=== PATIENT | male | born 1950 | race Caucasian/White ===

== ENCOUNTER → 2018-01-04 08:13 | Outpatient (CLI) | payer MEDICARE, SELFPAY ==
[2018-01-04 12:42] LABS: ALB/GLOB Ratio 1.1 RATIO (0.9-2.4); AST(SGOT) 24 U/L (15-37); Alanine Aminotransfer ALT/SGPT 39 U/L (16-61); Albumin, Serum 3.5 g/dL (3.2-5.0); Alkaline Phosphatase 66 U/L (45-117); Anion Gap 7 (5-15); BUN 10 mg/dL (7-18); BUN/Creat Ratio 11.1 RATIO (10-20); Calcium,Total 8.5 mg/dL (8.5-10.1); Chloride 105 mmol/L (98-107); Cholesterol 164 mg/dL (200); EST Glomerular Filtration Rate 90 mL/min (>60); Est Glom Filt Rate - Afr Amer 109 mL/min (>60); Globulin 3.3 g/dL (2.2-4.2); Glucose 160 mg/dL (74-106); High Density Lipoprotein 33 mg/dL; Potassium 3.9 mmol/L (3.5-5.1); Protein, Total 6.8 g/dL (6.4-8.2); Sodium Level 140 mmol/L (136-145); Triglycerides 274 mg/dL; Very Low Density Lipoprotein 55 mg/dL (5-40)
[2018-01-04 12:54] LABS: Hemoglobin A1c 7.3 % (4.2-6.3)
[2018-01-04 13:08] LABS: Microalbumin,Random Urine 6.2 mg/L (NO RANGE EST.); Microalbumin:Creatinine Ratio 3.8 mg/g CRE (<30 mg/g CRE)
== END ==
PROVIDERS: Visit Provider Family Medicine
DX: E11.9 Type 2 diabetes mellitus without complications (principal); E78.1 Pure hyperglyceridemia; R03.0 Elevated blood-pressure reading, without diagnosis of hypertension
CPT/HCPCS: 36415; 80053; 80061; 82043; 82570; 83036

== ENCOUNTER → 2018-07-05 08:12 | Outpatient (CLI) | payer MEDICARE, SELFPAY ==
[2018-07-05 12:43] LABS: Hemoglobin A1c 5.9 % (4.2-6.3)
[2018-07-05 12:45] LABS: Cholesterol 185 mg/dL (200); High Density Lipoprotein 54 mg/dL; PSA,Total - Annual Screen 3.58 ng/mL (0.00-4.00); Triglycerides 75 mg/dL; Very Low Density Lipoprotein 15 mg/dL (5-40)
== END ==
PROVIDERS: Family Provider Family Medicine; PCP Family Medicine; Visit Provider Family Medicine
DX: E11.9 Type 2 diabetes mellitus without complications (principal); E78.1 Pure hyperglyceridemia; Z12.5 Encounter for screening for malignant neoplasm of prostate
CPT/HCPCS: 36415; 80061; 83036; 84153; G0103

== ENCOUNTER → 2022-04-17 | Outpatient (CLI) | payer MEDICARE, SELFPAY ==
[2022-04-17 12:21] LABS: Absolute Lymphocyte Count 1.52 X10^3/uL (0.83-4.51); Absolute Neutrophil Count 2.7 X10^3/uL (2.0-7.7); Basophil# 0.05 X10^3/uL; Basophil% 1.1 % (0-1); Eosinophil# 0.11 X10^3/uL; Eosinophils% 2.4 % (0-5); Hematocrit 47.3 % (40-54); Hemoglobin 15.6 g/dL (13.0-16.5); Lymphocyte # 1.52 X10^3/ul (0.83-4.51); Lymphocyte % 32.5 % (19-41); Mean Corpuscular Hgb 30.2 pg (27.0-32.0); Mean Corpuscular Volume 91.5 fL (80-94); Mean Platelet Vol. 11.9 fl (6.2-12.0); Monocyte# 0.26 X10^3/uL; Monocyte% 5.6 % (0-10); NRBC Flagged by Analyzer 0 % (0-5); Neutrophil # 2.73 X10^3/uL (2.7-7.7); Neutrophil % 58.2 % (47-70); Platelet Count 191 K/mm3 (150-450); RBC Distribution Width CV 13.7 % (11.6-14.6); RBC Distribution Width SD 46.5 fl (35.1-43.9); Red Blood Count 5.17 M/mm3 (4.6-6.2); White Blood Count 4.7 K/mm3 (4.4-11.0)
[2022-04-17 12:33] LABS: ALB/GLOB Ratio 1.1 RATIO (0.9-2.4); AST(SGOT) 25 U/L (15-37); Alanine Aminotransfer ALT/SGPT 32 U/L (16-61); Albumin, Serum 3.7 g/dL (3.2-5.0); Alkaline Phosphatase 57 U/L (45-117); Anion Gap 9 (5-15); BUN 11 mg/dL (7-18); BUN/Creat Ratio 12.3 RATIO (10-20); Calcium,Total 8.3 mg/dL (8.5-10.1); Chloride 107 mmol/L (98-107); Cholesterol 202 mg/dL (200); EST Glomerular Filtration Rate 89 mL/min (>60); Est Glom Filt Rate - Afr Amer 108 mL/min (>60); Globulin 3.4 g/dL (2.2-4.2); Glucose 142 mg/dL (74-106); High Density Lipoprotein 49 mg/dL; Potassium 3.9 mmol/L (3.5-5.1); Protein, Total 7.1 g/dL (6.4-8.2); Sodium Level 142 mmol/L (136-145); Triglycerides 116 mg/dL; Very Low Density Lipoprotein 23 mg/dL (5-40)
[2022-04-17 12:50] LABS: Microalbumin,Random Urine 13.4 mg/L (NO RANGE EST.); Microalbumin:Creatinine Ratio 10.3 mg/g CRE (<30 mg/g CRE)
[2022-04-17 14:03] LABS: Hemoglobin A1c 6.8 % (3.8-5.6)
== END | disposition home or self-care (01) ==
PROVIDERS: PCP Family Medicine; Visit Provider Family Medicine
DX: E11.9 Type 2 diabetes mellitus without complications (principal); E78.1 Pure hyperglyceridemia; Z12.5 Encounter for screening for malignant neoplasm of prostate
CPT/HCPCS: 36415; 80053; 80061; 82043; 82570; 83036; 84153; 85025; G0103

== ENCOUNTER → 2022-05-20 | Outpatient (CLI) | payer MEDICARE, SELFPAY | END | disposition home or self-care (01) | LOC: LAB 14:46 | PROVIDERS: PCP Family Medicine; Visit Provider Urology | DX: R97.20 Elevated prostate specific antigen [PSA] (principal) | CPT/HCPCS: 36415; 84153 ==

== ENCOUNTER → 2022-06-05 | Outpatient (CLI) | payer MEDICARE, SELFPAY ==
--- NOTE | 2022-06-05 | IMM_PTH ---
PATIENT: JERALD NAM LOC: [facility] U#:[id number] AGE/SX: 72/M ROOM: RE06/05/[address]: Dr. Ruben Parks MD : 1950 BED: DIS: 06/05/2022 SPEC #: [id number] RECD: 06/09/22 13:17 STATUS: MESSI REQ #: [id number] ENRIQUE: 06/05/22 00:[address]: Ruben Parks DEPT: IMMUNOHISTOCHEMISTRY RECD BY: Jimena France ENTERED: 06/09/22 13:18 SP TYPE: IMMUNO OTHR DR: Dr. Asael Garcia DO Tissues: C - PROSTATE RIGHT Procedures: P40 (add) 34BE12 (initial) PHYSICIAN & INSTITUTION [place] [id number] SPECIMEN INFORMATION: Tissue Source: C - Right prostate, base, core biopsy Clinical Info: Elevated PSA Specimen Number: [id number] CPT code: 26504, 73894 METHODOLOGY: Deparaffinized sections of prefer/formalin-fixed tissue or PAP/DQ stained slides are incubated with monoclonal/polyclonal antibodies/oligonucleotide probes. Localization is made via biotin free immunoperoxidase method. Appropriate controls are performed and reacted as expected. Results on target cell population are indicated in the following table: RESULTS: ANTIBODY / CLONE RESULT Block C P40 (BC28) negative 34BE12 (34BE12) negative These tests were developed and their performance characteristics determined by [facility]. They may not have been cleared or approved by the U.S. Food and Drug Administration. The FDA has determined that such clearance or approval is not necessary. The above immunohistochemical/dualISH markers are ordered and reviewed by the Pathologist. INTERPRETATION: C. Right prostate, base, core biopsy: Adenocarcinoma. SJ:leticia 06/10/2022
--- NOTE | 2022-06-05 11:15 | PROSBIL_PTH ---
PATIENT: JERALD NAM LOC: [facility] U#:[id number] AGE/SX: 72/M ROOM: RE06/05/[address]: Dr. Ruben Parks MD : 1950 BED: DIS: 06/05/2022 SPEC #: [id number] RECD: 06/05/22 17:13 STATUS: MESSI DUMONT #: [id number] ENRIQUE: 06/05/22 11:[address]: Ruben Parks DEPT: SURGICAL PATHOLOGY RECD BY: Nohemi Bishop ENTERED: 06/06/22 07:56 SP TYPE: PROST BX DOLORES DR: Dr. Asael Garcia DO Tissues: A - PROSTATE RIGHT B - PROSTATE RIGHT C - PROSTATE RIGHT D - PROSTATE LEFT E - PROSTATE LEFT F - PROSTATE LEFT Procedures: PROSTATE BX HEADER OPERATION: Prostate biopsy PRE-OP DIAGNOSIS: Elevated PSA R97.20 TISSUE SUBMITTED: A - Right apex, B - Right mid, C - Right base, D - Left apex, E - Left mid, F - Left base MICROSCOPIC DIAGNOSIS A. Right prostate, apex, core biopsy: Prostatic adenocarcinoma. [place] grade: 3+4=7 Number of cores involved: 1/1 Proportion of tissue involved: >95% Perineural invasion: Present. Greatest tumor length: 0.9 cm B. Right prostate, mid, core biopsy: Prostatic adenocarcinoma. [place] grade: 3+4=7 Number of cores involved: 1/1 Proportion of tissue involved: ~90% Perineural invasion: Present. Greatest tumor length: 1.5 cm Focal high-grade prostatic intraepithelial neoplasia (HGPIN). Focal chronic inflammation. C. Right prostate, base, core biopsy: A minute focus of prostatic adenocarcinoma. [place] grade: 3+4=7 Number of cores involved: 1/1 Proportion of tissue involved: ~5% Perineural invasion: Present. Greatest tumor length: 0.2 cm Focal high-grade prostatic intraepithelial neoplasia (HGPIN). See comment. D. Left prostate, apex, core biopsy: Prostatic adenocarcinoma. [place] grade: 3+4=7 Number of cores involved: 1/1 Proportion of tissue involved: ~80% Perineural invasion: Present. Greatest tumor length: 1.0 cm Chronic inflammation. E. Left prostate, mid, core biopsy: Prostatic adenocarcinoma. [place] grade: 3+4=7 Number of cores involved: 1/1 Proportion of tissue involved: >95% Perineural invasion: Present. Greatest tumor length: 1.0 cm Chronic inflammation. F. Left prostate, base, core biopsy: Prostatic adenocarcinoma. [place] grade: 3+4=7 Number of cores involved: 1/1 Proportion of tissue involved: >95% Perineural invasion: present. Greatest tumor length: 1.2 cm Focal high-grade prostatic intraepithelial neoplasia (HGPIN). Focal chronic inflammation. SJ:leticia 06/09/2022 COMMENT C. Immunohistochemistry ([id number]) supports the above diagnosis. Case has been reviewed in consultation with Dr. Crawley who concurs with the above diagnosis. IDC:AM MICROSCOPIC DESCRIPTION Slides are reviewed. GROSS DESCRIPTION A - Received is one container designated prostate, right apex. The specimen consists of one elongated fragment of light chung-white soft tissue measuring 1.0 cm in length and 0.1 cm in diameter. The specimen is totally submitted in one cassette. B - Received is one container designated prostate, right mid. The specimen consists of one elongated fragment of light chung-white soft tissue measuring 2.0 cm in length and 0.1 cm in diameter. The specimen is totally submitted in one cassette. C - Received is one container designated prostate, right base. The specimen consists of one elongated fragment of light chung-white soft tissue measuring 1.1 cm in length and 0.1 cm in diameter. The specimen is totally submitted in one cassette. D - Received is one container designated prostate, left apex. The specimen consists of one elongated fragment of light chung-white soft tissue measuring 1.1 cm in length and 0.1 cm in diameter. The specimen is totally submitted in one cassette. E - Received is one container designated prostate, left mid. The specimen consists of one elongated fragment of light chung-white soft tissue measuring 1.1 cm in length and 0.1 cm in diameter. The specimen is totally submitted in one cassette. F - Received is one container designated prostate, left base. The specimen consists of one elongated fragment of light chung-white soft tissue measuring 1.2 cm in length and 0.1 cm in diameter. The specimen is totally submitted in one cassette. / DEE:leticia 06/06/2022 TC:0 CPT: G0146
== END | disposition home or self-care (01) ==
PROVIDERS: PCP Family Medicine; Visit Provider Urology
DX: R97.20 Elevated prostate specific antigen [PSA] (principal)
CPT/HCPCS: 88305; 88341; 88342; G0416

== ENCOUNTER → 2022-06-13 | Outpatient (CLI) | payer MEDICARE, SELFPAY ==
--- NOTE | 2022-06-13 16:02 | MRI_ITS ---
ACR Level 3 findings have been noted. An addendum which confirms receipt of the report will follow. MR Pelvis Male WO/W Contrast 06/13/2022 4:10 PM COMPARISON: None CLINICAL HISTORY: 72 yo M with hx of positive biopsy for prostate adenocarcinoma TECHNIQUE: Standard prostate MR protocol was used before and after administration of 17 cc IV Clariscan. FINDINGS: Prostate volume: 27 cc PSA density: PSA level not provided Length of membranous urethra: 15 mm Post-biopsy hemorrhage: Minimal hemorrhage seen in the right base and left mid gland. Multiparametric MR evaluation: Heterogeneous appearance of the central gland is consistent with benign prostatic hyperplasia. Lesion 1: There is a 3.7 x 1 x 3 cm moderately T2 hypointense lesion in the right anterior and posterolateral peripheral zone and transitional zone from base to near apex. It is moderately bright on DWI and markedly dark on ADC map. T2 - 5 DWI - 5 DCE - Positive Overall PI-RADS v2 score = 5 Capsular margin and neurovascular bundle: There is at least 2 mm length of extension into the anterior fibromuscular stroma. Seminal vesicles: Likely involvement of the right seminal vesicle. Normal left seminal vesicle. Bladder: Directly abuts the bladder. Cannot rule out local invasion. Lymph nodes: Prominent mesorectal lymph nodes for example a 9 mm node on the left (image 17, series 7). Bones: Normal MRI/Pelvis W/WO Contrast IMPRESSION: 3.7 cm PI-RADS 5 lesion in the right anterior and posterolateral PZ and TZ from base to near apex. - At least 2 mm length of extension into the anterior fibromuscular stroma. - Directly abuts the bladder. Cannot rule out local invasion. - Invades the right seminal vesicle, not the left. - Prominent mesorectal lymph nodes - No suspicious bone lesions. Electronically Signed: Rajendra Denise MD at 21:45 EDT ,
[2022-06-13 16:21] LABS: EGFR FINGERSTICK > 60.0000 mL/min (>60)
== END | disposition home or self-care (01) ==
LOC: MRI 15:50
PROVIDERS: PCP Family Medicine; Referring Provider Urology; Visit Provider Urology
DX: R97.20 Elevated prostate specific antigen [PSA] (principal)
CPT/HCPCS: 72197; A9575

== ENCOUNTER → 2022-06-20 | Outpatient (CLI) | payer MEDICARE, SELFPAY ==
--- NOTE | 2022-06-20 09:26 | NM_ITS ---
CLINICAL: 72-year-old male with history of primary prostate carcinoma. WHOLE BODY 99m Tc MDP RADIONUCLIDE BONE SCINTIGRAPHY COMPARISON: None available FINDINGS: Following the intravenous administration of 5.1 mCi of 99m Tc MDP, whole body bone images reveal: 1. Increased radiopharmaceutical concentration is defined in the acromioclavicular and sternoclavicular compartments of both, the left wrist, the lateral tibial compartment of the left knee, the ankles bilaterally. 2. The remaining skeletal structures are scintigraphically unremarkable with normal-appearing renal images and urinary bladder activity identified. NM/Bone Scan Whole Body IMPRESSION: 1. The increase in radiopharmaceutical concentration defined in the bilateral shoulder articulations, the left wrist, the left knee and both ankles is commensurate with degenerative arthritis. 2. There is no definitive scintigraphic evidence of osseous metastatic disease on the current examination. Electronically Signed: Yunier Martinez, at 13:55 EDT ,
== END | disposition home or self-care (01) ==
LOC: NM 09:20
PROVIDERS: PCP Family Medicine; Referring Provider Urology; Visit Provider Urology
DX: R97.20 Elevated prostate specific antigen [PSA] (principal); C61 Malignant neoplasm of prostate
CPT/HCPCS: 78306; A9503

== ENCOUNTER → 2022-06-26 | Outpatient (CLI) | payer MEDICARE, SELFPAY ==
--- NOTE | 2022-06-26 14:40 | CT_ITS ---
INDICATION: PROSTATE CA EXAMINATION: CT Abdomen And Pelvis W/ Contrast Injection TECHNIQUE: Helically acquired images were obtained of the abdomen and pelvis following IV contrast. 2-D reconstructions reviewed. A radiation dose optimization technique was used for this scan. IV Contrast dosage and agent: 100 cc Isovue-300 Oral contrast: None. COMPARISON: None. FINDINGS: LOWER CHEST: Benign granulomatous calcifications and adjacent cluster of punctate noncalcified nodules within left lower lobe compatible with post infectious process. Heart size within normal limits. LIVER: Several low-attenuation lesions measuring up to 13 mm diameter. Favor benign cysts and/or hemangiomas. GALLBLADDER AND BILIARY TREE: No calcified gallstones identified. No gallbladder wall edema demonstrated. No significant biliary ductal dilation. PANCREAS: No discrete mass or peripancreatic edema. SPLEEN: Normal size without focal cystic or solid mass. ADRENAL GLANDS: Unremarkable. KIDNEYS AND URETERS: Normal renal size and position. There are few small calcified stones within right kidney measuring up to 3 mm diameter. No ureteral stones identified. No hydroureteronephrosis. PERITONEUM: No peritoneal free air detected. No significant free fluid. RETROPERITONEUM: No retroperitoneal mass or pathologic fluid collection. BOWEL: Normal appendix medial to cecum within right lower quadrant. No bowel obstruction or significant bowel thickening. No focal inflammatory change. LYMPH NODES: No enlarged mesenteric or retroperitoneal lymph nodes. VESSELS: Mild atherosclerosis with no abdominal aortic aneurysm. URINARY BLADDER: There are few calcified stones lying within bladder lumen, largest measuring 1.8 cm diameter. REPRODUCTIVE ORGANS: Slightly enlarged prostate gland with small dystrophic calcifications. ABDOMINAL WALL: No acute findings. BONES: Skeletal degenerative changes with no suspicious osseous lesion or acute fracture. CT/Abdomen/Pelvis W IV Cont ONLY IMPRESSION: 1. Low-attenuation liver lesions are likely benign cysts and/or hemangiomas. Less likely metastatic disease. Follow-up as clinically warranted. 2. Otherwise, no evidence of acute intra-abdominal abnormality. 3. Urolithiasis and nephrolithiasis with no obstructive uropathy. 4. Slightly enlarged prostate gland with dystrophic calcifications. 5. Benign post infectious changes within left lower lobe of lung. No additional follow-up recommended at this time. 6. Other nonurgent findings within body of report. Electronically Signed: Asael Escobar MD at 22:13 EDT ,
== END | disposition home or self-care (01) ==
LOC: CT 14:27
PROVIDERS: PCP Family Medicine; Referring Provider Urology; Visit Provider Urology
DX: R97.20 Elevated prostate specific antigen [PSA] (principal); C61 Malignant neoplasm of prostate
CPT/HCPCS: 74177; Q9967

== ENCOUNTER 2022-07-23 11:13 | Observation (INO) | payer MEDICARE, SELFPAY ==
--- NOTE | 2022-07-17 12:43 | EKG12_ITS ---
Test Reason : PRE OP Blood Pressure : / mmHG Vent. Rate : 065 BPM Atrial Rate : 065 BPM P-R Int : 176 ms QRS Dur : 088 ms QT Int : 428 ms P-R-T Axes : 058 -04 049 degrees QTc Int : 445 ms Normal sinus rhythm Normal ECG Confirmed by AVILA RIVERS, LESLIE ([id number]), web editor MAYRA GORDON ([id number]) on 07/18/2022 8:16:31 AM Referred By: Rubne Parks Confirmed By:LESLIE GRAMAJO MD
[2022-07-17 13:34] LABS: Hematocrit 45.1 % (40-54); Hemoglobin 14.7 g/dL (13.0-16.5); Mean Corp Hgb Conc 32.6 g/dL (32-36); Mean Corpuscular Hgb 29.7 pg (27.0-32.0); Mean Corpuscular Volume 91.1 fL (80-94); Mean Platelet Vol. 12.4 fl (6.2-12.0); Platelet Count 177 K/mm3 (150-450); RBC Distribution Width CV 14.1 % (11.6-14.6); RBC Distribution Width SD 47.1 fl (35.1-43.9); Red Blood Count 4.95 M/mm3 (4.6-6.2); White Blood Count 5.2 K/mm3 (4.4-11.0)
[2022-07-23] VITALS (7 sets, daily range): BP systolic 129–149; BP diastolic 70–79; PULSE 70–77; RESP 14–18; TEMP 36.5–36.8; O2SAT 94–99; BMI 24.5
[2022-07-23] MEDS: Lactated Ringers 1,000 ML 15 ML IV (10:41)
[2022-07-23] MEDS: Cefazolin 2 GM in 0.9% Normal Saline 100 ML IV (12:16)
--- NOTE | 2022-07-23 12:30 | PROST_PTH ---
PATIENT: JERALD NAM LOC: [facility] U#:[id number] AGE/SX: 72/M [place] [facility] [place]: Dr. Ruben Parks MD : 1950 BED: 1 DIS: 07/24/2022 SPEC #: [id number] RECD: 07/23/22 16:55 STATUS: MESSI DUMONT #: [id number] ENRIQUE: 07/23/22 12:[address]: Ruben Parks DEPT: SURGICAL PATHOLOGY RECD BY: Kadeem Ashton ENTERED: 07/24/22 07:46 SP TYPE: PROSTATE OTHR DR: MD Dr. Asael Velasquez, DO Tissues: A - CALCULI B - Lymph node of pelvis, NOS C - Lymph node of pelvis, NOS D - Prostate, NOS Procedures: Surgery Specimen Level I Surgery Specimen Level V Surgery Specimen Level HEADER OPERATION: Laparoscopic robotic radical prostatectomy, bilateral lymph nodes PRE-OP DIAGNOSIS: Prostatic adenocarcinoma TISSUE SUBMITTED: A ? Bladder stones, B ? Left pelvic lymph node, C ? Right pelvic lymph node, D - Prostate MICROSCOPIC DIAGNOSIS A. Bladder stone: Stones x2 (gross only), clinically bladder stone. B. Left pelvic lymph nodes, regional dissection: Six out of six lymph nodes negative for metastatic carcinoma. C. Right pelvic lymph nodes, regional dissection: Two out of two lymph nodes negative for metastatic carcinoma. D. Prostate, radical prostatectomy: Prostatic adenocarcinoma. See cancer summary in the comment section. SJ:leticia 07/29/2022 COMMENT PROSTATE CANCER (RADICAL) SUMMARY: Procedure: Radical Prostatectomy Prostate Size: Weight: 46.5 gm Size: 4.0 cm transversely, 3.5 cm anterior-posteriorly and 4.5 cm craniocaudally Histologic Type: Adenocarcinoma Histologic Grade: Grade group 5, [place] score 4+5=9 Tumor Quantitation: Estimated percentage of prostate involved by tumor: >95% Tumor involves extensively apical, middle, and basal portions of both right and left lobes. Extraprostatic Extension: Present, nonfocal Location of Extraprostatic Extension: Right and left posterior and lateral and measures 0.7 cm in greatest dimension. Urinary Bladder Neck Invasion: Not identified Seminal Vesicle Invasion: Present, bilateral and both right and left seminal vesicle tumor measures 0.9 cm in greatest dimension. Tumor is also present surrounding adipose tissue adjacent to the seminal vesicle. Lymphvascular Invasion: Not identified Perineural Invasion: Present, frequent Margins: Margins involved by invasive carcinoma, nonlimited (>3 mm) Linear Length of positive margin involved: 1.4 cm, apical (largest length of positive margin) Focality: Multifocal Location of positive margin: Apical, basal, right posterolateral Margin positive in extraprostatic extension: Not identified [place] pattern at positive margin: Pattern 4 Treatment effect: No known presurgical therapy. Regional Lymph Nodes: Number of lymph nodes involved by carcinoma: 0 Number of lymph nodes examined: 8 Additional Pathologic Findings: Chronic inflammation. Focal high-grade prostatic intraepithelial neoplasia (HGPIN). Multiple stones. Ancillary Studies: Not performed. Clinical History: Please make reference to previous specimen ([id number]) right prostate apex, mid and base and left prostate apex and mid, core biopsies with diagnosis of ?prostatic adenocarcinoma.? PATHOLOGIC STAGE: pT3a+b pN0 pMx The above summary is in compliance with [employer] [employer] (CAP) Cancer Protocols Checklist and [place] [employer] Committee on Cancer (AJCC), Staging Manual, 8th Ed. Case has been reviewed in consultation with Dr. Crawley who concurs with the above diagnosis. IDC:AM MICROSCOPIC DESCRIPTION Slides are reviewed. GROSS DESCRIPTION A - Received in fixative is one container labeled with the patient's name and designated bladder stones. The specimen consists of two ovoid, rough surface brownish-yellow stones measuring 1.5 and 2.5 cm in greatest dimension. The specimen is for gross identification only. B - Received in fixative is one container labeled with the patient's name and designated left pelvic lymph node. The specimen consists of multiple pieces of yellow adipose tissue that in aggregate measure 3.5 x 3.0 x 0.5 cm. One possible lymph node is identified. It is bisected. The entire specimen is submitted in two cassettes as follows: 1 - one bisected lymph node and additional tissue (The bisected lymph node is inked black), 2??rest of the specimen. C - Received in fixative is one container labeled with the patient's name and designated right pelvic lymph node. The specimen consists of two pieces of yellow adipose tissue that in aggregate measure 4.5 x 3.0 x 1.0 cm. One nodule consistent with lymph node is noted measuring 2.5 cm in greatest dimension. The entire specimen is submitted in three cassettes as follows: 1 - one bisected lymph node, 2 & 3 - rest of the specimen. D - Received in fixative is one container labeled with the patient's name and designated prostate. The specimen consists of a radical prostatectomy specimen consisting of prostate and bilateral seminal vesicles and vas deferens. The specimen weighs 46.5 gm. The prostate measures 4.0 cm transversely, 3.5 cm anterior-posteriorly and 4.5 cm craniocaudally. The right seminal vesicle measures 2.5 x 1.0 x 0.5 cm and right vas deferens measures 2.5 cm in length and 0.5 cm in diameter. The left seminal vesicle measures 1.5 x 1.0 x 0.5 cm and the left vas deferens measures 2.0 cm in length and 0.6 cm in diameter. The prostate is inked as follows: anterior surface - yellow, posterior surface - black, right lateral surface - blue, left lateral surface - green. The bilateral seminal vesicles and vas deferens are inked as follows: Posterior surface bilateral seminal vesicle and vas deferens - black, anterior surface right seminal vesicle and vas deferens - blue and anterior left seminal vesicle and vas deferens - green. Sections of the prostate do not reveal any obvious mass lesion. Several brown stones are noted measuring 0.1 to 0.2 cm in greatest dimension. Screener Operator sections are submitted in 20 cassettes as follows: 1 - right seminal vesicle and vas deferens, 2 - left seminal vesicle and vas deferens, 3 - apical (urethral) margin, enface, 4?& 5 - distal portion prostate and bladder neck margin, enface, 6-10 - apical portion prostate, 1114 - middle portion prostate, 15-20 - basal portion prostate. Sections are submitted after additional fixation. / DEE:leticia 07/24/2022 TC:0 CPT: 73222, 00002 x2, 52765
[2022-07-23] MEDS: Bupivacaine 0.25% 30 ML Vial (15:45)
--- NOTE | 2022-07-23 16:03 | PCM.HP.STD ---
HPI - General HPI Narrative JERALD NAM, is a 72 M who presents for radical prostatectomy he has high risk prostate cancer organ to proceed with a bilateral lymph node dissection radical prostatectomy and also removal bladder stones large. [facility] Medical History (Updated 07/23/22 @ 11:[address] Ruben Parks MD) Alcohol use Anemia Bladder disease Cancer Leg cramps Non-smoker Prostate disease Restless legs Tinnitus Home Medications Magnesium Bys Glycinate 1 pkg PO/SL DAILY 07/09/22 [History Last Taken Unknown] alpha lipoic acid 300 mg capsule 300 mg PO DAILY 07/09/22 [History Last Taken Unknown] cholecalciferol (vitamin D3) 125 mcg (5,000 unit) tablet (Vitamin D3) 125 mcg PO DAILY 07/09/22 [History Last Taken Unknown] vitamin K2 100 mcg capsule 100 mcg PO DAILY 07/09/22 [History Last Taken Unknown] zinc 50 mg tablet 15 mg PO DAILY 07/09/22 [History Last Taken Unknown] ciprofloxacin HCl 500 mg tablet (Cipro) 500 mg PO BID #14 tabs 07/23/22 [Rx Last Taken Unknown] docusate sodium 100 mg capsule (Colace) 100 mg PO BID #20 caps 07/23/22 [Rx Last Taken Unknown] oxycodone-acetaminophen 5 mg-325 mg tablet (Endocet) 1 tab PO Q6H PRN pain 7 days #14 tabs 07/23/22 [Rx Last Taken Unknown] Allergy/AdvReac Type Severity Reaction Status Date / Time ibuprofen [From Advil] AdvReac SWEATS AND Verified 07/23/22 10:36 HOT FLASH naproxen [From Aleve] AdvReac SWEATS AND Verified 07/23/22 10:36 HOT FLASH Surgical History (Updated 07/09/22 @ 10:11 by Madeleine Dumas) Hx of colonoscopy Hx of hernia repair Hx of prostate biopsy Hx of tonsillectomy Social History Smoking Status: Never smoker Vital Signs Vital Signs Vital Signs: 07/23/22 10:36 07/23/22 10:36 Temperature 97.7 F L Temperature Source Temporal Pulse Rate 70 Respiratory Rate 16 Respiratory Pattern Normal Blood Pressure 149/79 H Blood Pressure Mean 102 Blood Pressure Source Monitor Blood Pressure Position Sitting Blood Pressure Location Left Arm Pulse Ox 99 Oxygen Delivery Method Room Air Weight Weight: 82 kg Body Mass Index (BMI) 24.5 Results Lab / Micro Data Result Diagrams: 07/17/22 12:45
--- NOTE | 2022-07-23 16:04 | DCINST_ITS ---
Discharge Instructions Diet Discharge Diet: No restrictions, Light diet - advance as tolerated and Soft diet Activity Discharge Activity: May Not Drive Return to work on:: 08/27/22 May shower in (days): 1 Dressing / Incision Call your doctor if your incision/area has: Continuous Slow Oozing, Sudden Increased Bleeding and Foul Smelling Discharge Cleanse incision/area with: Soap & Water Catheter: Mohr to leg bag and Mohr to large bag Drain: [place] Follow Up Care Please Follow Up With: Ruben Parks MD When: call for appt 2 weeks to remove mohr Test Results: Test results from this visit will be discussed in further detail at your follow- up appointment, if applicable. Discharge Plan Admission Primary Reason for Your Visit: Radical Prostatectomy Attending Provider: Ruben Parks Primary Care Provider: Asael Garcia Consulting Providers: Janes Deutsch Instructions Patient Instructions: Radical Prostatectomy Dc Discharge Orders/Prescriptions Prescriptions: New ciprofloxacin HCl [Cipro] 500 mg tablet 500 mg PO BID Qty: 14 0RF docusate sodium [Colace] 100 mg capsule 100 mg PO BID Qty: 20 0RF oxycodone-acetaminophen [Endocet] 5-325 mg tablet 1 tab PO Q6H PRN (Reason: pain) 7 Days Qty: 14 0RF Continued zinc 50 mg Tablet 15 mg PO DAILY alpha lipoic acid 300 mg Capsule 300 mg PO DAILY cholecalciferol (vitamin D3) [Vitamin D3] 125 mcg (5,000 unit) Tablet 125 mcg PO DAILY vitamin K2 100 mcg Capsule 100 mcg PO DAILY Magnesium Bys Glycinate 1 pkg PO/SL DAILY Other Ambulatory Orders: 12 Lead EKG (Routine) Timeframe: [id number] Location: None Selected Ordered By: Dr. Janes Deutsch Referrals / Follow Up: Ruben Parks MD [Med Staff - Active Staff] - Asael Garcia DO [Primary Care Provider] - Disposition Disposition (needs filled in before D/C Order can be placed): Home, Self Care
--- NOTE | 2022-07-23 16:04 | PCM.OPRPT ---
Report of Operation Date of Procedure: 07/23/22 Pre-Operative Diagnosis: Prostate cancer, high risk, bladder stones large Post-Operative Diagnosis: The same Surgery/Procedure Performed:: Laparoscopic robotic assisted radical prostatectomy Bilateral complete lymph node dissection pelvic Cystolitholapaxy removal of large bladder stones Description of Surgical Findings:: Patient presented to the hospital for treatment of his prostate cancer with radical prostatectomy. In the preoperative setting we discussed the options of management for his prostate cancer including active surveillance, radiation treatments, radioactive seeds, and radical robotic prostatectomy. We discussed the side effects of surgery including the potential to lose erections. We discussed the potential to have bladder control problems with stress incontinence which can be temporary or permanent. We discussed the risk of the surgery including the risk of general anesthetic, risk of bleeding, risk of infection, and risk of formation of hernia either incisional hernia or inguinal hernia. After long discussion with the patient the preoperative setting and also reviewed this in the preop area patient signed the consent form and we proceeded with a radical prostatectomy. Patient was taken back to the operating room he was identified, time out procedure was performed and he was placed supine on the table he underwent general anesthesia with intubation. The abdomen was shaved prepped and draped in usual sterile fashion as well as the penis and testicles. A 16 [place] catheter was placed into the bladder with clear return of urine. I then made an incision in the umbilicus and dissected down to the fascia advance a Veress needle into the peritoneal cavity and insufflated the peritoneal cavity with CO2 gas. I then placed a 12 mm trocar above the umbilicus. I then visualized the placement of the rest of the trochars, I placed a right arm robotic trocar, and air seal trocar, a suction port 5 mm trocar. And on the left side I placed 2 robotic arms. Once all the trochars were in placed the patient was put in steep Trendelenburg. And the robot was docked the arms were docked and then I placed the 0 degree camera through the robotic arm and also used a 30 degree camera during certain parts of the case. I used scissors in the right arm, prograsp in the third arm, and a bipolar in the second arm. Initial dissection was to free the sigmoid colon off the lateral wall this was done by meticulously dissecting off the peritoneum and the sigmoid colon off the left lateral wall. This then allowed the prograsp to retract the sigmoid colon out of the pelvis. I then went below the bladder and identified the vas deferens incised the peritoneum over the vas deferens and traced the vas deferens below the bladder to the prostate and identified the right and left vasa deferens. Below behind the vas deferens then the seminal vesicles were identified. I then dissected the seminal vesicle free using pinpoint electrocautery and then we identified the other seminal vesicle and then dissected this using pinpoint electrocautery I then elevated the vas deferens and several vesicles off the prostate and was able to sweep the Denonvilliers' fascia off the prostate posteriorly all the way up to the apex of the prostate. Working laterally I made sure I went as lateral as possible to sweep the Denonilliers' fascia off the posterior aspect of the prostate and worked my way back, I then transected the vas deferens and the left and right side the seminal vesicles were then dissected free. And then I pulled out of the pelvis. At this point the bladder was dropped creating the space of Retzius with the bladder on traction with the fourth arm. Using electrocautery I dissected in the anterior peritoneal fascia and then created the space of Retzius dissecting towards the prostate. The pelvic lymph node dissection was then performed both side. Rhe right pelvic lymph nodes the nodes that were taken on the right side extended from the right iliac artery lateral pelvic sidewall up to the junction of the artery and the lymph nodes and down to the obturator nerve and then also below the ingot car operator nerve all the lymph nodes were removed during to remove those lymph nodes we used clips and electrocautery to control small blood vessels and also the control lymphatic. I then went to the left side and again did an extensive lymph node dissection starting of the left iliac artery extending the left iliac vein on the lateral sidewall down to the obturator nerve and the left side beyond the ingot car operator nerve down further behind it cleaning out all the lymphatic tissue all this tissue was sent off as a specimen we use clips and electrocautery during the dissection. At the end we cleaned out all the lymphatic tissue on the right pelvic wall and all the lymphatic tissue in the left pelvic wall. The prostate was then cleaned of the fat over the prostate and the fourth arm was used to retract the bladder and place traction. I then identified the endopelvic fascia that was overlying the prostate on the right side I incised endopelvic fascia and swept the levator muscles off the prostate all the way to the apex on the right side, I then worked my way anterior to the prostate then transected to the puboprostatic ligament and the underlying dorsal vein complex was not injured. I then went to the other side and identified the endopelvic fascia in the left side incised in a fashion the left side and swept the levator muscles off the prostate on the left side all the way up to the apex the puboprostatic ligament on the left side was then dissected and transected I then freed up the fascia overlying the dorsal vein complex. I then used the prograsp to encircled the dorsal vein complex with the prograsp and then switched over to the right and left needle long haul truck driver and suture ligated the dorsal vein complex above the prograsp. The prograsp was then placed back in the bladder and put back on traction I then identified the junction between the bladder and the prostate and dissected down between the bladder and the prostate untilI came across the catheter we then dissected posteriorly to the bladder and prostate to free the prostate and the bladder off each other and the muscles between the bladder and the prostate was then cauterized to free up the bladder. We then opened up the bladder and reached in and using the ProGrasp was able to remove 2 large bladder stones that we knew were in the bladder by prior imaging, each about 3 cm in size total size of stones was about 6 cm. Both stones were removed intact and placed in Endo Catch bag and extracted through the air seal port and then the air seal port was placed back into the abdomen. After removing the stones and we proceeded with the dissection. I then went on top of the prostate and identified the endopelvic fascia on top of the prostate this was incised all the way to the apex and then we swept the endopelvic fascia off the prostate laterally and then identified the plane between endopelvic fascia and the prosthetic pseudocapsule and swept the fascia laterally until reaching the course of the neurovascular bundles and then released the neurovascular bundles off the prostate laterally all the way back in a retrograde fashion back to the junction of the pedicles then the prostate was placed on traction with the fourth arm pulling the prostate laterally identified the pedicle to the prostate between the seminal vesicles and the and the neurovascular bundle and this was taken using sequential small hemolocks. After the pedicle was taken the I then dissected underneath the prostate sweeping the neurovascular bundle off the prostate we able to follow the nice smooth plane between the neurovascular bundle and the pseudocapsule all the way to the apex once this was identified we swept this up all the way up to the apex and there was perfect nerve sparing on the right side. Then went to the left side the prostate identified the endopelvic fascia over the left side of the prostate I incised the endopelvic fascia all the way to the apex and then swept this off laterally I then released the neurovascular bundles on the left side of the prostate sweeping him off the prostate laterally I then elevated the prostate up up with the prostate and traction identified the pedicle to the prostate on the left side and then the pedicles taken with sequential Hem-o-geoff clips I then was able to dissected the neurovascular bundle off the left posterior aspect the prostate this was a perfect dissection all the way up on the left side following the pseudocapsule all the way up the left side until we reached the apex of the prostate. After the both the neurovascular bundles has been swept off the posterior to the prostate I then went above and transected the dorsal vein complex there was minimal to no bleeding but then dissected down to the urethra and circumfencial dissected around the urethra I then switched the right and left arm with the needle drivers and I suture-ligated the dorsal vein complex again just to ensure that there was no bleeding from the dorsal vein complex. I then transected through the urethra with scissors and the prostate was then freed and released off the prostate bed and put an Endo Catch bag. At this point the bladder neck was reconstructed and then an anastomosis was performed between the prostate and the bladder with a 3 oh V-Loc stitch in a running fashion starting from the bladder neck at the 6 o'clock position working to the 12 o'clock position with continuous stitches to complete a perfect anastomosis between the bladder and the prostate. I then placed a new catheter into the bladder, an 18 [place] tip catheter flushed the bladder and there was no leakage from the anastomosis I put 10 cc in the balloon and pulled it up pulled back gently. I then ensured that there was no bleeding from the dorsal vein complex no bleeding from the neurovascular bundles FloSeal was placed as necessary once hemostasis was ensured and adequate then I placed the bladder back in position in the pelvis the prostate was exchanged to the camera port I closed the air seal port with a 10 12 Ney Tyler stitch. And the extracted the prostate through the umbilicus. The robot was undocked all the ports were removed under direct visualization then closed the extraction site with 0 Vicryl with a CT1 needle once the extraction site was closed. I then closed all the incision with subcuticular stitches with 4-0 Monocryl and then bandages were placed on the incisions catheter was flushed to make sure it was draining well there was no clots and it was crystal clear patient's anesthetic was reversed he was extubated and taken back to the PACU in stable condition all the needles and sponges and instruments were accounted for. Blood loss was minimal and the drain was a 18 [place] Mohr catheter. No other surgical drain was left. I was present during the entire case. Surgeon: Ruben Parks Type of Anesthesia: General Drains: 18 fr mohr Estimated Blood Loss (mL): 300 Fluids Replaced: 2L Complications none Admit VTE Documentation VTE Present on Admission: No VTE Mechan Device Prophylaxis: SCD's VTE Pharm Prophylaxis ordered?: No
[2022-07-23] MEDS: Ketorolac 15 MG/ML Vial IV ×2 (18:27→22:48)
[2022-07-23] MEDS: 0.9% Saline Lock 10 ML Syringe IV (18:28)
[2022-07-23] MEDS: Lactated Ringers 1,000 ML 125 ML IV (18:34)
[2022-07-23] MEDS: Docusate Sodium 100 MG Capsule 200 MG PO (22:47)
[2022-07-23] MEDS: Ciprofloxacin 400 MG/200 ML BAG 200 MG IV (22:47)
[2022-07-24 01:48] VITALS: BP 122/63; PULSE 73; RESP 18; TEMP 36.7; O2SAT 100
[2022-07-24] MEDS: Lactated Ringers 1,000 ML 125 ML IV (02:22)
[2022-07-24] MEDS: Ketorolac 15 MG/ML Vial IV ×2 (05:22→11:29)
--- NOTE | 2022-07-24 07:46 | PCM.PN.BLA ---
Progress Note doing well home today with mohr to gravity.
[2022-07-24 08:30] VITALS: BP 120/66; PULSE 60; RESP 16; TEMP 36.7; O2SAT 99
--- NOTE | 2022-07-24 08:55 | CASEMGMT ---
RN MANN NOTE: Pt being discharged today w/ F/C. . RN CM to room. Introduced self and role. Pt sitting up in chair. He states he lives w/his and is independent @ [facility]. He denies having any discharge planning needs or concerns. He is aware nursing will do F/C education prior to discharge. Instructed to ask for CM if any d/c planning needs or concerns arise. Leila TAVERA RN CM
[2022-07-24] MEDS: Ciprofloxacin 400 MG/200 ML BAG 200 MG IV (10:21)
[2022-07-24] MEDS: Docusate Sodium 100 MG Capsule 200 MG PO (10:21)
[2022-07-24] MEDS: 0.9% Saline Lock 10 ML Syringe IV (11:29)
== END 2022-07-24 13:00 | disposition home or self-care (01) ==
LOC: SDC 16:28 → MS3 16:28
PROVIDERS: Anesthesiology; Admitting Provider Urology; PCP Family Medicine; Referring Provider Urology; Visit Provider Urology
PROC: 0VT04ZZ Resection of Prostate, Percutaneous Endoscopic Approach (ICD-10-PCS; CPT 55866; principal; 2022-07-23 12:10)
DX: C61 Malignant neoplasm of prostate (principal); N21.0 Calculus in bladder; G25.81 Restless legs syndrome
CPT/HCPCS: 55866; 52318; 00865; 36415; 85027; 86850; 86900; 86901; 88300; 88307; 88309; 93005; 94668; 96361; 96365; 96366; 96375; 96376; 99221; 99252; J7120; A4216; G0378; G0463; J0744; J2405

== ENCOUNTER 2022-08-01 16:55 | Observation (INO) | payer MEDICARE, SELFPAY ==
[2022-08-01 16:35] VITALS: BP 150/82; PULSE 74; RESP 24; TEMP 36.9; O2SAT 96
[2022-08-01 16:51] VITALS: BMI 25.2
--- NOTE | 2022-08-01 17:09 | NURSING ---
1630-pt arrived via squad from [facility]. Received report from EMT. Pt currently running heparin gtt at 15ml/hr and had gotten 6750unit heparin bolus. Pt assisted into bed. Call light in reach.
--- NOTE | 2022-08-01 17:27 | PCM.HP.STD ---
HPI - General General Date of Admission: 08/01/22 Date of Service: 08/01/22 Chief Complaint: Right-sided pleuritic chest pain HPI Narrative JERALD NAM, is a 72 M with a history of prostate cancer who 10 days ago underwent robotic assisted laparoscopic prostatectomy. 2 days ago developed right-sided pleuritic chest pain and a cough. Symptoms did not improve with analgesics he had been prescribed following his surgery. Did not report any fever or chills. No nausea or vomiting and has been doing pretty well. Presented to [facility] emergency department with CT angiogram of the chest showed bilateral pulmonary embolism with right middle lobe infarction. Inpatient service reluctant to admit patient given the high likelihood of development of hematuria with anticoagulation. They do not have urology services there and so patient requested to be transferred here. [facility] Medical History Alcohol use Anemia Bladder disease Cancer Diabetes Leg cramps Non-smoker Prostate disease Restless legs Tinnitus Home Medications Magnesium Bys Glycinate 1 pkg PO/SL DAILY 07/09/22 [History Last Taken 08/01/22] alpha lipoic acid 300 mg capsule 300 mg PO DAILY 07/09/22 [History Last Taken 07/30/22] cholecalciferol (vitamin D3) 125 mcg (5,000 unit) tablet (Vitamin D3) 125 mcg PO DAILY 07/09/22 [History Last Taken 08/01/22] vitamin K2 100 mcg capsule 100 mcg PO DAILY 07/09/22 [History Last Taken 07/31/22] zinc 50 mg tablet 15 mg PO DAILY 07/09/22 [History Last Taken 07/30/22] docusate sodium 100 mg capsule (Colace) 100 mg PO BID #20 caps 07/23/22 [Rx Last Taken 08/01/22] oxycodone-acetaminophen 5 mg-325 mg tablet (Endocet) 1 tab PO Q6H PRN pain 7 days #14 tabs 07/23/22 [Rx Last Taken 07/30/22] omega-3 fatty acids 1 cap PO DAILY 08/01/22 [History Last Taken 08/01/22] Allergy/AdvReac Type Severity Reaction Status Date / Time ibuprofen [From Advil] AdvReac SWEATS AND Verified 07/23/22 10:36 HOT FLASH naproxen [From Aleve] AdvReac SWEATS AND Verified 07/23/22 10:36 HOT FLASH Surgical History Hx of colonoscopy Hx of hernia repair Hx of prostate biopsy Hx of tonsillectomy Social History household members: spouse housing: house Smoking Status: Never smoker substance use type: does not use ROS ROS Narrative Did not report any nausea vomiting. All other systems reviewed and essentially negative as above in the body of the history. Vital Signs Vital Signs Vital Signs: 08/01/22 16:35 08/01/22 16:35 Temperature 36.9 C Temperature Source Oral Pulse Rate 74 Respiratory Rate 24 H Respiratory Effort Short of Breath Respiratory Depth Normal Respiratory Pattern Tachypnea Blood Pressure 150/82 H Blood Pressure Mean 104 Blood Pressure Source Monitor Blood Pressure Position Semi-Fowlers Blood Pressure Location Left Arm Pulse Ox 96 Oxygen Delivery Method Room Air Room Air Weight Weight: 84.504 kg Body Mass Index (BMI) 25.2 Physical Exam Narrative General exam. Elderly man, in some painful distress, slightly anxious appearing but not toxic or acutely ill-appearing HEENT. Oral mucosa slightly dry no pallor or jaundice Neck. Neck is supple Lungs. Shallow breathing, chest wall is nontender, no adventitious sounds heard on auscultation. Heart. First and second heart sounds heard no murmurs. Abdomen. Full and soft nontender. Extremities. No pedal edema DIRECTOR INTERNAL AUDIT. Conscious alert and oriented x3. Cranial nerves II to XII grossly intact. All other systems examined and essentially negative. Results Lab / Micro Data Attestation: I reviewed the patient's lab results. Lab results narrative: Lab results from your primary hospital reviewed. Chemistry is only showing hyperglycemia at 201 mg per DL. Rest of CBC and BMP are normal. Troponin is normal as well. Assessment & Plan Assessment/Plan (1) Acute pulmonary embolism: PLAN: Plan Assessment and plan 1. Acute pulmonary embolism. Bilateral with associated right middle lobe infarction. Most likely cause of his pleuritic pain. Patient has been started on full anticoagulation with heparin drip from the referring hospital we will continue here. Monitor CBC and PTT. Aggressively treat pleuritic chest pain in order to avoid complications from pneumonia and atelectasis. 2. Prostate cancer status post prostatectomy. Patient still with Proctor catheter. Urine now slightly bloody. We will need to monitor this closely. Should urine become grossly bloody with development of clots may need to consult urology. Charges/Coding Visit Charges Inpatient E&M: 51875 Init Hosp L3
[2022-08-01 18:17] LABS: Absolute Lymphocyte Count 1.68 X10^3/uL (0.83-4.51); Absolute Neutrophil Count 6.9 X10^3/uL (2.0-7.7); Basophil# 0.05 X10^3/uL; Basophil% 0.5 % (0-1); Eosinophils% 2.1 % (0-5); Hematocrit 42.6 % (40-54); Hemoglobin 14.2 g/dL (13.0-16.5); Lymphocyte # 1.68 X10^3/ul (0.83-4.51); Lymphocyte % 17.3 % (19-41); Mean Corp Hgb Conc 33.3 g/dL (32-36); Mean Corpuscular Hgb 30.1 pg (27.0-32.0); Mean Corpuscular Volume 90.4 fL (80-94); Mean Platelet Vol. 11.5 fl (6.2-12.0); Monocyte# 0.78 X10^3/uL; NRBC Flagged by Analyzer 0 % (0-5); Neutrophil # 6.94 X10^3/uL (2.7-7.7); Neutrophil % 71.7 % (47-70); Platelet Count 195 K/mm3 (150-450); RBC Distribution Width CV 13.7 % (11.6-14.6); RBC Distribution Width SD 45.6 fl (35.1-43.9); Red Blood Count 4.71 M/mm3 (4.6-6.2); White Blood Count 9.7 K/mm3 (4.4-11.0)
[2022-08-01] MEDS: oxyCODONE 5 MG Tablet PO (18:24)
[2022-08-01] MEDS: Acetaminophen 500 MG Tablet 1000 MG PO (18:24)
[2022-08-01] MEDS: HEPARIN/D5w 25,000 UNITS 25,000 UNITS/250 ML IV.SOLN. 12 UNITS CONT INF (18:25)
[2022-08-01 18:32] LABS: International Normalized Ratio 1.2; Prothrombin Time (Protime)PT. 15.5 SECONDS (11.7-14.9)
[2022-08-01 18:47] LABS: Partial Thromboplast Time 208.2 Seconds (24.1-36.2)
[2022-08-01] MEDS: Senna/Docusate Sodium 1 Tablet 2 TABLET PO (21:19)
[2022-08-01 21:20] VITALS: BP 129/72; PULSE 68; RESP 18; TEMP 36.8; O2SAT 94
[2022-08-02] MEDS: Acetaminophen 500 MG Tablet 1000 MG PO ×4 (00:16→18:21)
[2022-08-02] MEDS: oxyCODONE 5 MG Tablet PO ×5 (00:16→23:05)
[2022-08-02 03:49] LABS: Partial Thromboplast Time 69.3 Seconds (24.1-36.2)
[2022-08-02 04:02] VITALS: BP 119/65; PULSE 59; RESP 18; TEMP 36.5; O2SAT 94
[2022-08-02 05:14] LABS: ALB/GLOB Ratio 0.8 RATIO (0.9-2.4); AST(SGOT) 13 U/L (15-37); Alanine Aminotransfer ALT/SGPT 24 U/L (16-61); Albumin, Serum 2.9 g/dL (3.2-5.0); Alkaline Phosphatase 67 U/L (45-117); Anion Gap 6 (5-15); BUN 12 mg/dL (7-18); BUN/Creat Ratio 15.9 RATIO (10-20); Calcium,Total 8.7 mg/dL (8.5-10.1); Chloride 107 mmol/L (98-107); Creatinine, Serum 0.76 mg/dL (0.70-1.30); EST Glomerular Filtration Rate 108 mL/min (>60); Est Glom Filt Rate - Afr Amer 131 mL/min (>60); Estimated Creatinine Clearance 74.37 ml/min; Globulin 3.5 g/dL (2.2-4.2); Glucose 181 mg/dL (74-106); Potassium 3.8 mmol/L (3.5-5.1); Protein, Total 6.4 g/dL (6.4-8.2); Sodium Level 138 mmol/L (136-145)
--- NOTE | 2022-08-02 07:39 | PCM.PN.HOSP ---
Reason for Visit Reason for Visit: Diagnoses Other pulmonary embolism without acute cor pulmonale (08/01/22) Subjective Subjective Still feels quite short of breath, has not been up moving around yet Objective Data Objective Data Vital Signs: Vital Signs Temp Pulse Resp BP Pulse Ox O2 Del Method 97.7 F L 59 L 18 119/65 94 Room Air 08/02/22 04:02 08/02/22 04:02 08/02/22 04:02 08/02/22 04:02 08/02/22 04:02 08/02/22 04:02 Oxygen Delivery Method Room Air Weight: 84.504 kg Body Mass Index (BMI) 25.2 Intake & Output: Intake and Output for Last 24 Hours 07/31/22 08/01/22 08/02/22 23:59 23:59 23:59 Intake Total 366 / 666 562.85 / 562.85 Output Total 2400 / 2400 Balance 366 / -234 -1837.15 / -1837.15 Lab / Micro Data Result Diagrams: 08/02/22 03:19 08/02/22 03:19 Labs: Laboratory Results - last 24 hr 08/01/22 17:55: WBC 9.7, RBC 4.71, Hgb 14.2, Hct 42.6, MCV 90.4, MCH 30.1, MCHC 33.3, RDW Std Deviation 45.6 H, RDW Coeff of Shahla 13.7, Plt Count 195, MPV 11.5, Immature Gran % (Auto) 0.400, Neut % (Auto) 71.7 H, Lymph % (Auto) 17.3 L, [place] % (Auto) 8.0, Eos % (Auto) 2.1, Baso % (Auto) 0.5, Absolute Neuts (auto) 6.9, Absolute Lymphs (auto) 1.68, Nucleated RBC % 0 08/01/22 17:55: PT 15.5 H, INR 1.2, APTT 208.2 H* 08/02/22 03:19: Sodium 138, Potassium 3.8, Chloride 107, Carbon Dioxide 25.0, Anion Gap 6, BUN 12, Creatinine 0.76, Estim Creat Clear Calc 74.37, Est GFR (MDRD) Af Amer 131, Est GFR (MDRD) Non-Af 108, BUN/Creatinine Ratio 15.9, Glucose 181 H, Calcium 8.7, Total Bilirubin 0.80, AST 13 L, ALT 24, Alkaline Phosphatase 67, Total Protein 6.4, Albumin 2.9 L, Globulin 3.5, Albumin/Globulin Ratio 0.8 L 08/02/22 03:19: APTT 69.3 H Physical Exam Narrative General: Alert, oriented, no apparent distress HEENT: Atraumatic, normocephalic Eyes: Anicteric, normal conjunctiva, extraocular movements grossly intact Neck: Supple Respiratory: Somewhat poor air exchange at the bases, normal respiratory effort Cardiovascular: Regular rate and rhythm GI: Soft, nontender, nondistended Extremities: No edema Musculoskeletal: Moving all extremities Neuro: No overt focal neurological deficits Skin: No rashes appreciated Psych: Cooperative Assessment & Plan Assessment/Plan (1) Acute pulmonary embolism: PLAN: Plan JERALD NAM, is a 72 M with a history of prostate cancer who 10 days ago underwent robotic assisted laparoscopic prostatectomy. Presented w/ 2 day s of pleuritic CP and cough, was found to have bilat PE and right middle lobe infarction in [facility] ED on CTA and given high likelihood of hematuria with anticoagulation started with no urology service transfer is requested. #Bilateral pulmonary embolism with right middle lobe infarct -Seen on CTA [facility] ED -Started on heparin drip, will be monitored here -08/02: Hemoglobin stable and patient respiratory status stable will likely DC tomorrow after ambulating to assess for home O2 #Prostate cancer status post radical prostatectomy 08/[address] Parks -W/ mohr with slightly blood-tinged urine on presentation -08/02: Mohr without gross blood, Charly evaluated and is okay for full dose anticoagulation and recommended against changing the Mohr catheter and that if it needs changed to contact Dr. Parks. If patient doing well tomorrow we will switch to oral and likely DC #DVT ppx: Heparin drip Tracy Fletcher MD Time spent in the patient's overall evaluation,decision-making process, review of diagnostic data, adjustment of management, discussion with other providers, nursing nursing and ancillary staff involved in patient's care documentation, 30 minutes Charges/Coding Visit Charges Inpatient E&M: 96657 Subs Hosp L2
[2022-08-02 08:38] VITALS: BP 136/74; PULSE 68; RESP 16; TEMP 36.6; O2SAT 94
[2022-08-02] MEDS: Senna/Docusate Sodium 1 Tablet 2 TABLET PO ×2 (08:39→21:05)
--- NOTE | 2022-08-02 10:26 | CON.PCM.UR_ITS ---
HPI Consult Data Date of Consult: 08/02/22 HPI Narrative Reason for Consultation: Pulmonary embolism HPI Narrative: JERALD NAM, is a 72 M who underwent a radical prostatectomy wide dissection for high risk prostate cancer was discharged home on postoperative day #1 doing well and then presented to an outside emergency room with shortness of breath was found to have pulmonary embolism and was transferred here for further care he is on heparin and being anticoagulated which is appropriate his urine is clear and there is no sign of bleeding. Recommend we do not change the Proctor catheter if the catheter needs to be changed or if the concerns regarding catheter please give me a call. We will follow along with you and from my perspective okay to fully anticoagulate the patient call me with questions [facility] Medical History Alcohol use Anemia Bladder disease Cancer Diabetes Leg cramps Non-smoker Prostate disease Restless legs Tinnitus Home Medications Magnesium Bys Glycinate 1 pkg PO/SL DAILY 07/09/22 [History Last Taken 08/01/22] alpha lipoic acid 300 mg capsule 300 mg PO DAILY 07/09/22 [History Last Taken 07/30/22] cholecalciferol (vitamin D3) 125 mcg (5,000 unit) tablet (Vitamin D3) 125 mcg PO DAILY 07/09/22 [History Last Taken 08/01/22] vitamin K2 100 mcg capsule 100 mcg PO DAILY 07/09/22 [History Last Taken 07/31/22] zinc 50 mg tablet 15 mg PO DAILY 07/09/22 [History Last Taken 07/30/22] docusate sodium 100 mg capsule (Colace) 100 mg PO BID #20 caps 07/23/22 [Rx Last Taken 08/01/22] oxycodone-acetaminophen 5 mg-325 mg tablet (Endocet) 1 tab PO Q6H PRN pain 7 days #14 tabs 07/23/22 [Rx Last Taken 07/30/22] omega-3 fatty acids 1 cap PO DAILY 08/01/22 [History Last Taken 08/01/22] Allergy/AdvReac Type Severity Reaction Status Date / Time ibuprofen [From Advil] AdvReac SWEATS AND Verified 07/23/22 10:36 HOT FLASH naproxen [From Aleve] AdvReac SWEATS AND Verified 07/23/22 10:36 HOT FLASH Surgical History Hx of colonoscopy Hx of hernia repair Hx of prostate biopsy Hx of tonsillectomy Social History household members: spouse housing: house Smoking Status: Never smoker substance use type: does not use Lab / Micro Data Result Diagrams: 08/01/22 17:55 08/02/22 03:19 Labs: Laboratory Results - last 24 hr 08/01/22 17:55: WBC 9.7, RBC 4.71, Hgb 14.2, Hct 42.6, MCV 90.4, MCH 30.1, MCHC 33.3, RDW Std Deviation 45.6 H, RDW Coeff of Shahla 13.7, Plt Count 195, MPV 11.5, Immature Gran % (Auto) 0.400, Neut % (Auto) 71.7 H, Lymph % (Auto) 17.3 L, V[place] % (Auto) 8.0, Eos % (Auto) 2.1, Baso % (Auto) 0.5, Absolute Neuts (auto) 6.9, Absolute Lymphs (auto) 1.68, Nucleated RBC % 0 08/01/22 17:55: PT 15.5 H, INR 1.2, APTT 208.2 H* 08/02/22 03:19: Sodium 138, Potassium 3.8, Chloride 107, Carbon Dioxide 25.0, Anion Gap 6, BUN 12, Creatinine 0.76, Estim Creat Clear Calc 74.37, Est GFR (MDRD) Af Amer 131, Est GFR (MDRD) Non-Af 108, BUN/Creatinine Ratio 15.9, Glucose 181 H, Calcium 8.7, Total Bilirubin 0.80, AST 13 L, ALT 24, Alkaline Phosphatase 67, Total Protein 6.4, Albumin 2.9 L, Globulin 3.5, Albumin/Globulin Ratio 0.8 L 08/02/22 03:19: APTT 69.3 H
[2022-08-02 10:32] LABS: Absolute Lymphocyte Count 2.12 X10^3/uL (0.83-4.51); Absolute Neutrophil Count 5.2 X10^3/uL (2.0-7.7); Basophil# 0.08 X10^3/uL; Basophil% 0.9 % (0-1); Eosinophil# 0.27 X10^3/uL; Eosinophils% 3.2 % (0-5); Hemoglobin 13.6 g/dL (13.0-16.5); Lymphocyte # 2.12 X10^3/ul (0.83-4.51); Lymphocyte % 24.9 % (19-41); Mean Corp Hgb Conc 33.2 g/dL (32-36); Mean Corpuscular Hgb 30.2 pg (27.0-32.0); Mean Corpuscular Volume 90.9 fL (80-94); Mean Platelet Vol. 12.2 fl (6.2-12.0); Monocyte# 0.82 X10^3/uL; Monocyte% 9.6 % (0-10); NRBC Flagged by Analyzer 0 % (0-5); Neutrophil # 5.21 X10^3/uL (2.7-7.7); Platelet Count 189 K/mm3 (150-450); RBC Distribution Width CV 13.8 % (11.6-14.6); RBC Distribution Width SD 46.6 fl (35.1-43.9); Red Blood Count 4.51 M/mm3 (4.6-6.2); White Blood Count 8.5 K/mm3 (4.4-11.0)
[2022-08-02 10:38] LABS: Partial Thromboplast Time 68.9 Seconds (24.1-36.2)
--- NOTE | 2022-08-02 12:20 | CASEMGMT ---
Addendum entered by Lynne Pitts 08/02/22 14:27: Eliquis savings card provided to patient and placed in discharge folder. Original Note: RN CM Face to Face with patient for initial transition planning/care coordination assessment. RN CM introduced self and role at [facility]. Patient lying in bed, alert and oriented, at bedside. Patient willing to participate in assessment and is able to answer all questions appropriately. Care providers, pharmacy, and demographics verified. Patient wishes to discharge home, denies need for home health at this time. Patient states he has no further needs or concerns at this time. CM to follow for discharge planning needs that may arise. PCP: Jose Specialists: Charly Leyva Pharmacy: [facility] Insurance: [employer] Prescription Benefit: yes Living Will/HPOA: none LNOK: Living Arrangements: Patient lives with in a single story home with 2 steps to enter the home. Patient states he is independent at home. Transportation: self, DME/HHC: Patient has crutches at home. No previous HHC or SNF. Will monitor for home oxygen, patient prefers [employer] after reviewing DME agencies. Disposition Plan: Patient to discharge home with family support and follow-up plans in place. Will monitor for home oxygen. Lynne TAVERA, RN, CM
[2022-08-02 16:00] VITALS: BP 118/81; PULSE 81; RESP 16; TEMP 37.1; O2SAT 95
[2022-08-02 16:35] LABS: Partial Thromboplast Time 63.6 Seconds (24.1-36.2)
[2022-08-02 21:01] VITALS: BP 140/77; PULSE 71; RESP 18; TEMP 36.3; O2SAT 96
[2022-08-02 22:14] LABS: Partial Thromboplast Time 72.7 Seconds (24.1-36.2)
[2022-08-02] MEDS: HEPARIN/D5w 25,000 UNITS 25,000 UNITS/250 ML IV.SOLN. 9 UNITS CONT INF (23:06)
[2022-08-03] MEDS: Acetaminophen 500 MG Tablet 1000 MG PO ×3 (00:51→11:27)
[2022-08-03 03:43] VITALS: BP 133/78; PULSE 65; RESP 18; TEMP 36.5; O2SAT 95
[2022-08-03 05:22] LABS: Absolute Lymphocyte Count 1.91 X10^3/uL (0.83-4.51); Absolute Neutrophil Count 4.8 X10^3/uL (2.0-7.7); Basophil# 0.06 X10^3/uL; Basophil% 0.8 % (0-1); Eosinophil# 0.31 X10^3/uL; Hematocrit 43.4 % (40-54); Hemoglobin 14.1 g/dL (13.0-16.5); Lymphocyte # 1.91 X10^3/ul (0.83-4.51); Lymphocyte % 24.7 % (19-41); Mean Corp Hgb Conc 32.5 g/dL (32-36); Mean Corpuscular Hgb 29.6 pg (27.0-32.0); Mean Corpuscular Volume 91.2 fL (80-94); Mean Platelet Vol. 11.5 fl (6.2-12.0); Monocyte# 0.67 X10^3/uL; Monocyte% 8.7 % (0-10); NRBC Flagged by Analyzer 0 % (0-5); Neutrophil # 4.75 X10^3/uL (2.7-7.7); Neutrophil % 61.5 % (47-70); Platelet Count 203 K/mm3 (150-450); RBC Distribution Width CV 13.8 % (11.6-14.6); RBC Distribution Width SD 46.6 fl (35.1-43.9); Red Blood Count 4.76 M/mm3 (4.6-6.2); White Blood Count 7.7 K/mm3 (4.4-11.0)
[2022-08-03 05:43] LABS: Partial Thromboplast Time 67.6 Seconds (24.1-36.2)
[2022-08-03] MEDS: oxyCODONE 5 MG Tablet PO ×2 (05:47→11:28)
--- NOTE | 2022-08-03 05:49 | NURSING ---
0436 PTT resulted at 0548. hep gtt maintained
[2022-08-03 06:06] LABS: Anion Gap 6 (5-15); BUN 10 mg/dL (7-18); BUN/Creat Ratio 14.3 RATIO (10-20); Calcium,Total 8.9 mg/dL (8.5-10.1); Chloride 106 mmol/L (98-107); EST Glomerular Filtration Rate 119 mL/min (>60); Est Glom Filt Rate - Afr Amer 144 mL/min (>60); Estimated Creatinine Clearance 74.37 ml/min; Glucose 186 mg/dL (74-106); Potassium 3.8 mmol/L (3.5-5.1); Sodium Level 138 mmol/L (136-145)
[2022-08-03 10:00] VITALS: BP 136/78; PULSE 67; RESP 16; TEMP 36.5; O2SAT 99
[2022-08-03] MEDS: APIXABAN 5 MG TABLET 10 MG PO ×2 (10:10→16:21)
[2022-08-03] MEDS: Senna/Docusate Sodium 1 Tablet 2 TABLET PO (10:10)
[2022-08-03 10:28] VITALS: O2SAT 92; O2SAT 96
--- NOTE | 2022-08-03 11:42 | DCINST_ITS ---
Discharge Instructions Diet Discharge Diet: No restrictions Activity Discharge Activity: Return to Normal Activity Follow Up Care Test Results: Test results from this visit will be discussed in further detail at your follow- up appointment, if applicable. Discharge Plan Admission Admit Date/Time: 08/01/22 16:55 Primary Reason for Your Visit: Right-sided chest pain Attending Provider: Tracy Fletcher Primary Care Provider: Asael Garcia Consulting Providers: Etienne Cuba Instructions Patient Instructions: DVT/PE Discharge instruction sheet, Embolism Pulmonary Dc Additional Instructions / Restrictions: DISCHARGE INSTRUCTIONS PLEASE READ *Please take this with you to your next doctors appointment* -Please follow-up with Dr. Parks upon discharge. Please call their office to schedule hospital follow-up appointment upon discharge. -You are found to have blood clots in your lungs and you will be discharged on a blood thinner, Eliquis, You will take 10 mg twice daily for 7 days followed by 5 mg twice daily thereafter -If you have any bleeding into your Proctor catheter advised that you call Dr. Farrar's office or proceed to the emergency department -Would recommend lab work (CBC) to check your hemoglobin/blood counts in 2 to 3 days through your primary care physician's office. Please call their office upon discharge to obtain order for lab work. -Advised you practice taking deep full breaths as much as possible as this will help recover your lungs faster -Please call your primary care provider's office upon discharge to schedule a hospital follow up within 1 week. -For any concerning signs or symptoms please call 911 or proceed to the nearest emergency department Discharge Orders/Prescriptions Prescriptions: New Eliquis DVT-PE Treat 30D Start 5 mg (74 tabs) tablets,dose pack See Rx Instructions .ROUTE .COMPLEX Qty: 74 0RF Rx Instructions: You will take 10 mg twice daily for 7 days followed by 5 mg twice daily thereafter Continued zinc 50 mg Tablet 15 mg PO DAILY alpha lipoic acid 300 mg Capsule 300 mg PO DAILY cholecalciferol (vitamin D3) [Vitamin D3] 125 mcg (5,000 unit) Tablet 125 mcg PO DAILY vitamin K2 100 mcg Capsule 100 mcg PO DAILY Magnesium Bys Glycinate 1 pkg PO/SL DAILY docusate sodium [Colace] 100 mg capsule 100 mg PO BID Qty: 20 0RF oxycodone-acetaminophen [Endocet] 5-325 mg tablet 1 tab PO Q6H PRN (Reason: pain) 7 Days Qty: 14 0RF omega-3 fatty acids Capsule 1 cap PO DAILY Referrals / Follow Up: Ruben Parks MD [Med Staff - Active Staff] - See Referral Note (Please follow-up with Dr. Parks upon discharge. Please call their office to schedule hospital follow-up appointment upon discharge.) Asael Garcia DO [Primary Care Provider] - Within 1 Week Disposition Disposition (needs filled in before D/C Order can be placed): Home, Self Care
--- NOTE | 2022-08-03 12:00 | PCM.DC.SUM ---
Providers Date of Admission: 08/01/22 Date of Discharge: 08/03/22 Primary Care Physician: Dr. 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 Parks Medications at Discharge Home Medications Magnesium Bys Glycinate 1 pkg PO/SL DAILY 07/09/22 alpha lipoic acid 300 mg capsule 300 mg PO DAILY 07/09/22 cholecalciferol (vitamin D3) 125 mcg (5,000 unit) tablet (Vitamin D3) 125 mcg PO DAILY 07/09/22 vitamin K2 100 mcg capsule 100 mcg PO DAILY 07/09/22 zinc 50 mg tablet 15 mg PO DAILY 07/09/22 docusate sodium 100 mg capsule (Colace) 100 mg PO BID #20 caps 07/23/22 oxycodone-acetaminophen 5 mg-325 mg tablet (Endocet) 1 tab PO Q6H PRN pain 7 days #14 tabs 07/23/22 omega-3 fatty acids 1 cap PO DAILY 08/01/22 apixaban 5 mg (74 tabs) tablets in a dose pack (Eliquis DVT-PE Treat 30D Start) See Rx Instructions .Route .COMPLEX #74 tabs 08/03/22 Hospital Course Summary of Care Provided Minutes Spent on Discharge: 32 Hospital Course: JERALD NAM, is a 72 M with a history of prostate cancer who 10 days ago underwent robotic assisted laparoscopic prostatectomy. Presented w/ 2 day s of pleuritic CP and cough, was found to have bilat PE and right middle lobe infarction in [facility] ED on CTA and given high likelihood of hematuria with anticoagulation started with no urology service transfer is requested. He was brought to our facility and had no hypoxia at rest on room air. He was continued on a heparin drip and evaluated by his urologist, hemoglobin remained stable and no significant bleeding. Proctor catheter remained in place and he was ambulated to assess for any respiratory distress or O2 need and he did not need any. On day of discharge still reports it sometimes difficult to take a large breath and is not coughing is no other complaints. Considered obtaining echo however given his lack of respiratory distress, no hypoxia or other signs or symptoms concerning for increased strain on the heart can defer to outpatient physician to perform echocardiogram if desired to assess right heart though likely not necessary on this particular clinical scenario. Discharge instructions as followed: -Please follow-up with Dr. Parks upon discharge.? Please call their office to schedule hospital follow-up appointment upon discharge. -You are found to have blood clots in your lungs and you will be discharged on a blood thinner, Eliquis, You will take 10 mg twice daily for 7 days followed by 5 mg twice daily thereafter -If you have any bleeding into your Proctor catheter advised that you call Dr. Farrar's office or proceed to the emergency department -Would recommend lab work (CBC) to check your hemoglobin/blood counts in 2 to 3 days through your primary care physician's office.? Please call their office upon discharge to obtain order for lab work. -Advised you practice taking deep full breaths as much as possible as this will help recover your lungs faster -Please call your primary care provider's office upon discharge to schedule a hospital follow up within 1 week. -For any concerning signs or symptoms please call 911 or proceed to the nearest emergency department Physical Exam Narrative General: Alert, oriented, no apparent distress HEENT: Atraumatic, normocephalic Eyes: Anicteric, normal conjunctiva, extraocular movements grossly intact Neck: Supple Respiratory: No crackles or wheezes, normal respiratory effort Cardiovascular: Regular rate and rhythm GI: Soft, nontender, nondistended Extremities: No edema Musculoskeletal: Moving all extremities Neuro: No overt focal neurological deficits Skin: No rashes appreciated Psych: Cooperative Weight / BMI Weight Weight: 84.504 kg Body Mass Index (BMI) 25.2 ABG / Lab / Microbiology Data Result Diagrams: 08/03/22 04:35 08/03/22 04:35 Laboratory: Laboratory Results - last 24 hr 08/02/22 15:55: APTT 63.6 H 08/02/22 21:55: APTT 72.7 H 08/03/22 04:35: WBC 7.7, RBC 4.76, Hgb 14.1, Hct 43.4, MCV 91.2, MCH 29.6, MCHC 32.5, RDW Std Deviation 46.6 H, RDW Coeff of Shahla 13.8, Plt Count 203, MPV 11.5, Immature Gran % (Auto) 0.300, Neut % (Auto) 61.5, Lymph % (Auto) 24.7, Valencia % (Auto) 8.7, Eos % (Auto) 4.0, Baso % (Auto) 0.8, Absolute Neuts (auto) 4.8, Absolute Lymphs (auto) 1.91, Nucleated RBC % 0 08/03/22 04:35: Sodium 138, Potassium 3.8, Chloride 106, Carbon Dioxide 26.0, Anion Gap 6, BUN 10, Creatinine 0.70, Estim Creat Clear Calc 74.37, Est GFR (MDRD) Af Amer 144, Est GFR (MDRD) Non-Af 119, BUN/Creatinine Ratio 14.3, Glucose 186 H, Calcium 8.9 08/03/22 04:35: APTT 67.6 H D/C Instructions Discharge Diet: No restrictions Meaningful Use Info Meaningful Use Diagnoses (Choose all that apply): VTE VTE Anticoag overlap given w/in hospital stay or rx'd at dc?: Yes Pt receive overlap for 5 days?: No Reason overlap not ordered, prescribed, or given for 5 days: Treatment Not Indicated Discharge Plan Admission Admit Date/Time: 08/01/22 16:55 Primary Reason for Your Visit: Right-sided chest pain Attending Provider: Tracy Fletcher Primary Care Provider: Asael Garcia Consulting Providers: Etienne Cuba Instructions Patient Instructions: DVT/PE Discharge instruction sheet, Embolism Pulmonary Dc Additional Instructions / Restrictions: DISCHARGE INSTRUCTIONS PLEASE READ *Please take this with you to your next doctors appointment* -Please follow-up with Dr. Parks upon discharge. Please call their office to schedule hospital follow-up appointment upon discharge. -You are found to have blood clots in your lungs and you will be discharged on a blood thinner, Eliquis, You will take 10 mg twice daily for 7 days followed by 5 mg twice daily thereafter -If you have any bleeding into your Proctor catheter advised that you call Dr. Farrar's office or proceed to the emergency department -Would recommend lab work (CBC) to check your hemoglobin/blood counts in 2 to 3 days through your primary care physician's office. Please call their office upon discharge to obtain order for lab work. -Advised you practice taking deep full breaths as much as possible as this will help recover your lungs faster -Please call your primary care provider's office upon discharge to schedule a hospital follow up within 1 week. -For any concerning signs or symptoms please call 911 or proceed to the nearest emergency department Discharge Orders/Prescriptions Prescriptions: New Saraquis DVT-PE Treat 30D Start 5 mg (74 tabs) tablets,dose pack See Rx Instructions .ROUTE .COMPLEX Qty: 74 0RF Rx Instructions: You will take 10 mg twice daily for 7 days followed by 5 mg twice daily thereafter Continued zinc 50 mg Tablet 15 mg PO DAILY alpha lipoic acid 300 mg Capsule 300 mg PO DAILY cholecalciferol (vitamin D3) [Vitamin D3] 125 mcg (5,000 unit) Tablet 125 mcg PO DAILY vitamin K2 100 mcg Capsule 100 mcg PO DAILY Magnesium Bys Glycinate 1 pkg PO/SL DAILY docusate sodium [Colace] 100 mg capsule 100 mg PO BID Qty: 20 0RF oxycodone-acetaminophen [Endocet] 5-325 mg tablet 1 tab PO Q6H PRN (Reason: pain) 7 Days Qty: 14 0RF omega-3 fatty acids Capsule 1 cap PO DAILY Referrals / Follow Up: Ruben Parks MD [Med Staff - Active Staff] - See Referral Note (Please follow-up with Dr. Parks upon discharge. Please call their office to schedule hospital follow-up appointment upon discharge.) Asael Garcia DO [Primary Care Provider] - Within 1 Week Disposition Disposition (needs filled in before D/C Order can be placed): Home, Self Care Charges/Coding Visit Charges Inpatient E&M: 87264 Disch Hosp >30min
== END 2022-08-03 16:35 | disposition home or self-care (01) | DRG 176 ==
PROVIDERS: Hospitalist; Admitting Provider Internal Medicine; PCP Family Medicine; Referring Provider Internal Medicine; Visit Provider Internal Medicine
DX: I26.99 Other pulmonary embolism without acute cor pulmonale (principal); C61 Malignant neoplasm of prostate; E11.9 Type 2 diabetes mellitus without complications; Z79.899 Other long term (current) drug therapy; Z98.890 Other specified postprocedural states
CPT/HCPCS: 36415; 80048; 80053; 85025; 85610; 85730; 96365; 96366; 99221; G0378; G0379

== ENCOUNTER → 2022-08-25 | Outpatient (CLI) | payer MEDICARE, SELFPAY ==
[2022-08-25 15:07] LABS: Absolute Lymphocyte Count 1.87 X10^3/uL (0.83-4.51); Basophil# 0.05 X10^3/uL; Basophil% 0.9 % (0-1); Eosinophil# 0.32 X10^3/uL; Eosinophils% 5.6 % (0-5); Hematocrit 45.3 % (40-54); Hemoglobin 14.9 g/dL (13.0-16.5); Lymphocyte # 1.87 X10^3/ul (0.83-4.51); Mean Corp Hgb Conc 32.9 g/dL (32-36); Mean Corpuscular Hgb 29.9 pg (27.0-32.0); Mean Platelet Vol. 12.7 fl (6.2-12.0); Monocyte% 7.1 % (0-10); NRBC Flagged by Analyzer 0 % (0-5); Neutrophil % 52.9 % (47-70); Platelet Count 188 K/mm3 (150-450); RBC Distribution Width CV 13.8 % (11.6-14.6); RBC Distribution Width SD 46.4 fl (35.1-43.9); Red Blood Count 4.98 M/mm3 (4.6-6.2); White Blood Count 5.7 K/mm3 (4.4-11.0)
[2022-08-25 15:51] LABS: Hemoglobin A1c 7.3 % (3.8-5.6)
== END | disposition home or self-care (01) ==
LOC: BFHLAB 13:12
PROVIDERS: PCP Family Medicine; Referring Provider Family Medicine; Visit Provider Family Medicine
DX: Z51.81 Encounter for therapeutic drug level monitoring (principal); E11.9 Type 2 diabetes mellitus without complications
CPT/HCPCS: 36415; 83036; 85025

== ENCOUNTER → 2022-11-13 | Outpatient (CLI) | payer MEDICARE, SELFPAY | END | disposition home or self-care (01) | LOC: LAB 09:50 | PROVIDERS: PCP Family Medicine; Referring Provider Urology; Visit Provider Urology | DX: C61 Malignant neoplasm of prostate (principal) | CPT/HCPCS: 36415; 84153 ==

== ENCOUNTER → 2022-12-02 | Outpatient (CLI) | payer MEDICARE, SELFPAY ==
--- NOTE | 2022-12-02 08:14 | MRI_ITS ---
STUDY: MR PELVIS WITH T WITHOUT CONTRAST REASON FOR EXAM: Male, 72 years old. post prostatectomy staging for disease -- PSA 19 after surgery, eval pelvic disease TECHNIQUE: Standardized fat and water weighted pulse sequences were obtained in all 3 orthogonal planes, pre-and post contrast administration. IV 17ml clariscan was administered for the contrast portion of the examination. COMPARISON: Prostate MRI 06/13/2022 FINDINGS: Hollow viscus structures are unremarkable in their visualized extent. Nondistended urinary bladder. There is no pelvic fluid. Enhancing lymph node (round) on image 7 (series 3, series 4, series 12) currently measures 9.8 x 10.1 mm (previously measured 6.5 x 8.0 mm) adjacent to left internal iliac vein. There are also 2 small lymph nodes in the left mesorectal fat on image 13-14 of series 4 measuring 5 x 7 mm, stable. 7.1 x 7.1 mm lymph node (oval shaped, heterogeneous, mildly irregular) at the aortic bifurcation on image 2 of series 4 has also increased in size (previously measured 6.0 mm). No other enlarging lymph nodes Normal visualized pelvic arteries. No bone marrow edema. Normal abdominal wall. Prostatectomy. There is a small nonenhancing collection along the right pelvic sidewall measuring 1.6 x 2.0 cm new since prior MRI, likely representing a small postoperative seroma or lymphocele. MRI/Pelvis W/WO Contrast IMPRESSION: 1. Interval prostatectomy. Small (2 cm) right sidewall seroma or lymphocele. 2. Pelvic lymph nodes (aortic bifurcation, left internal iliac) have increased in size from prior MRI, suspicious for metastasis but ultimately nonspecific. Electronically Signed: Chinedu Melchor MD ([place]) at 17:42 EDT ,
[2022-12-02 09:51] LABS: EGFR FINGERSTICK > 60.0000 mL/min (>60)
== END | disposition home or self-care (01) ==
LOC: MRI 08:03
PROVIDERS: PCP Family Medicine; Referring Provider Student in an Organized Health Care Education/Training Program; Visit Provider Student in an Organized Health Care Education/Training Program
DX: Z01.812 Encounter for preprocedural laboratory examination (principal); C61 Malignant neoplasm of prostate; R97.21 Rising PSA following treatment for malignant neoplasm of prostate
CPT/HCPCS: 72197; A9575

== ENCOUNTER → 2023-03-02 | Outpatient (CLI) | payer MEDICARE, SELFPAY ==
[2023-03-02 12:50] LABS: PSA,Total- Diagnostic 0.09 ng/mL (0.0-4.0)
== END | disposition home or self-care (01) ==
LOC: LAB 10:59
PROVIDERS: PCP Family Medicine; Referring Provider Nurse Practitioner; Visit Provider Nurse Practitioner
DX: C61 Malignant neoplasm of prostate (principal)
CPT/HCPCS: 36415; 84153

== ENCOUNTER → 2023-04-27 | Outpatient (CLI) | payer MEDICARE, SELFPAY ==
--- OUTSIDE RECORDS SUMMARY | 2023-04-27 09:57 | XMS RPT_ITS | CCD ---
Author Name Unknown Address [address] [place] [address] Organization [facility] Care Team Providers Care Tree Pruner Name Role Phone RADHA GUDINO Admitting Unavailable RADHA GUDINO Attending Unavailable RADHA GUDINO Primary Care Unavailable AMIE, DANNY A Consulting Unavailable AMIE, DANNY A Referring Unavailable PROVIDER, UNKNOWN Consulting Unavailable LACIE DODGE DO Admitting Unavailable OMLACIE MORSE DO Attending Unavailable OMLITO, LACIE DO Primary Care Unavailable AMIE, DANNY A Consulting Unavailable AMIE, DANNY A Referring Unavailable PROVIDER, UNKNOWN Consulting Unavailable MARIA E NASCIMENTO DPM Admitting Unavailable MARIA E NASCIMENTO DPM Attending Unavailable MARIA E NASCIMENTO DPM Primary Care Unavailable DANNY HOLLOWAY A Consulting Unavailable PROVIDER, UNKNOWN Consulting Unavailable MADY DELUCA Admitting Unavailable MADY DELUCA Attending Unavailable MADY DELUCA Primary Care Unavailable DANNY HOLLOWAY A Consulting Unavailable PROVIDER, UNKNOWN Consulting Unavailable Problems Problem Classification Problem Date Documented Da te Episodic/Chronic E Codes: Natural/environment (1 source) Bitten by cat, initial encounter; Translations: [Bitten by cat, initial encounter] Onset: 11-11-2021 Episodic Skin and subcutaneous tissue infections (1 source) Cellulitis of left finger; Translations: [Cellulitis of left finger] Onset: 11-11-2021 Episodic Superficial injury; contusion (3 sources) Other superficial bite of left index finger, initial encounter; Translations: [Other superficial bite of left index finger, initial encounter] Onset: 11-11-2021 Episodic Results Test Name Value Interpretation Reference Range Facil ity Encounters Encounter Date Encounter Type Care Provider Facility Start: 08-01-2022 End: 08-01-2022 Emergency department patient visit MADY DELUCA [facility] Start: 05-05-2022 End: 05-05-2022 ambulatory MARIA E DRAPER [facility] Start: 03-28-2022 End: 03-28-2022 Emergency department patient visit RADHA GUDINO [facility] Start: 11-11-2021 End: 11-12-2021 Emergency department patient visit LACIE LAYNE [facility] Payers Date Payer Category Payer Unknown [id number] [id number] [id number] 1950 Unknown [id number] [id number] [id number] 1950 Unknown [id number] [id number] 1950 Unknown [id number] [id number] [id number] Medicare [id number] Summary Purpose Family History No Family History Records Found Advance Directives No Advanced Directives Records Found Additional Source Comments (unrecognized sect ion and content) No Status Records Found INFORMATION SOURCE (unrecogn ized section and content) FOR RECORDS PERTAINING TO PATIENTS WHO ARE OR HAVE BEEN ENROLLED IN A CHEMICAL DEPENDENCY/SUBSTANCEABUSE PROGRAM, SOME INFORMATION MAY BE OMITTED. This clinical summary was aggregated from multiple sources. Caution should be exercised in using it in the provision of clinical care. This summary normalizes information from multiple sources, and as a consequence, information in this document may materially change the coding, format and clinical context of patient data. In addition, data may be omitted in some cases. CLINICAL DECISIONS SHOULD BE BASED ON THE PRIMARY CLINICAL RECORDS. [employer] provides no warranty or guarantee of the accuracy or completeness of information in this document.
[2023-04-27 12:36] LABS: ALB/GLOB Ratio 0.9 RATIO (0.9-2.4); AST(SGOT) 23 U/L (15-37); Alanine Aminotransfer ALT/SGPT 42 U/L (16-61); Albumin, Serum 3.5 g/dL (3.2-5.0); Alkaline Phosphatase 68 U/L (45-117); Anion Gap 8 (5-15); BUN 16 mg/dL (7-18); Calcium,Total 8.9 mg/dL (8.5-10.1); Chloride 107 mmol/L (98-107); Cholesterol 203 mg/dL (200); Creatinine, Serum 1.07 mg/dL (0.70-1.30); EST Glomerular Filtration Rate 72 mL/min (>60); Est Glom Filt Rate - Afr Amer 87 mL/min (>60); Globulin 3.7 g/dL (2.2-4.2); Glucose 182 mg/dL (74-106); High Density Lipoprotein 49 mg/dL; Protein, Total 7.2 g/dL (6.4-8.2); Sodium Level 140 mmol/L (136-145); Triglycerides 150 mg/dL; Very Low Density Lipoprotein 30 mg/dL (5-40)
[2023-04-27 12:38] LABS: Microalbumin,Random Urine 8.7 mg/L (NO RANGE EST.); Microalbumin:Creatinine Ratio 8.8 mg/g CRE (<30 mg/g CRE)
[2023-04-27 13:13] LABS: Hemoglobin A1c 7.9 % (3.8-5.6)
== END | disposition home or self-care (01) ==
LOC: BFHLAB 09:17
PROVIDERS: PCP Family Medicine; Visit Provider Family Medicine
DX: E11.9 Type 2 diabetes mellitus without complications (principal); I10 Essential (primary) hypertension
CPT/HCPCS: 36415; 80053; 80061; 82043; 82570; 83036

== ENCOUNTER → 2023-06-04 | Outpatient (CLI) | payer MEDICARE, SELFPAY ==
[2023-06-04 12:10] LABS: PSA,Total- Diagnostic < 0.01 ng/mL (0.0-4.0)
== END | disposition home or self-care (01) ==
LOC: LAB 09:44
PROVIDERS: PCP Family Medicine; Referring Provider Nurse Practitioner; Visit Provider Nurse Practitioner
DX: C61 Malignant neoplasm of prostate (principal)
CPT/HCPCS: 36415; 84153

== ENCOUNTER → 2023-09-07 | Outpatient (CLI) | payer MEDICARE, SELFPAY ==
[2023-09-07 11:46] LABS: PSA,Total- Diagnostic < 0.01 ng/mL (0.0-4.0)
== END | disposition home or self-care (01) ==
LOC: LAB 09:41
PROVIDERS: PCP Family Medicine; Referring Provider Urology; Visit Provider Urology
DX: C61 Malignant neoplasm of prostate (principal)
CPT/HCPCS: 36415; 84153

== ENCOUNTER → 2024-03-08 | Outpatient (CLI) | payer MEDICARE, SELFPAY ==
[2024-03-08 09:59] LABS: PSA,Total- Diagnostic < 0.01 ng/mL (0.0-4.0)
== END | disposition home or self-care (01) ==
LOC: LAB 09:05
PROVIDERS: PCP Family Medicine; Referring Provider Urology; Visit Provider Urology
DX: C61 Malignant neoplasm of prostate (principal)
CPT/HCPCS: 36415; 84153; 84403

== ENCOUNTER → 2024-06-15 | Outpatient (CLI) | payer MEDICARE, SELFPAY ==
[2024-06-15 12:47] LABS: Absolute Lymphocyte Count 1.47 X10^3/uL (0.83-4.51); Absolute Neutrophil Count 2.7 X10^3/uL (2.0-7.7); Basophil# 0.07 X10^3/uL; Basophil% 1.4 % (0-1); Eosinophil# 0.34 X10^3/uL; Eosinophils% 6.9 % (0-5); Hematocrit 44.7 % (40-54); Hemoglobin 14.7 g/dL (13.0-16.5); Lymphocyte # 1.47 X10^3/ul (0.83-4.51); Lymphocyte % 29.9 % (19-41); Mean Corp Hgb Conc 32.9 g/dL (32-36); Mean Corpuscular Hgb 29.6 pg (27.0-32.0); Mean Corpuscular Volume 90.1 fL (80-94); Mean Platelet Vol. 11.1 fl (6.2-12.0); Monocyte# 0.37 X10^3/uL; Monocyte% 7.5 % (0-10); NRBC Flagged by Analyzer 0 % (0-5); Neutrophil # 2.65 X10^3/uL (2.7-7.7); Neutrophil % 53.9 % (47-70); Platelet Count 211 K/mm3 (150-450); RBC Distribution Width CV 13.8 % (11.6-14.6); RBC Distribution Width SD 45.4 fl (35.1-43.9); Red Blood Count 4.96 M/mm3 (4.6-6.2); White Blood Count 4.9 K/mm3 (4.4-11.0)
[2024-06-15 13:07] LABS: ALB/GLOB Ratio 1.8 RATIO (0.9-2.4); AST(SGOT) 28 U/L (<=37); Alanine Aminotransfer ALT/SGPT 30 U/L (<=46); Albumin, Serum 4.3 g/dL (3.4-4.8); Alkaline Phosphatase 65 U/L (40-129); Anion Gap 11 (5-15); BUN 15 mg/dL (4-19); BUN/Creat Ratio 17.7 RATIO (10-20); Calcium,Total 8.9 mg/dL (7.6-11.0); Carbon Dioxide 23.5 mmol/L (21.0-32.0); Chloride 106 mmol/L (98-108); Cholesterol 212 mg/dL (<=200); Creatinine, Serum 0.82 mg/dL (0.70-1.20); EST Glomerular Filtration Rate 93 (>60); Globulin 2.4 g/dL (2.2-4.2); Glucose 161 mg/dL (70-99); High Density Lipoprotein 55 mg/dL; Low Density Lipoprotein Calc. 132 mg/dL; Potassium 4.5 mmol/L (3.3-5.1); Protein, Total 6.7 g/dL (5.9-8.4); Sodium Level 141 mmol/L (133-145); Total Bilirubin 0.48 mg/dL (0.00-1.30); Triglycerides 129 mg/dL; Very Low Density Lipoprotein 26 mg/dL (5-40); cholesterol:hdl ratio screen 3.88
[2024-06-15 13:10] LABS: Microalbumin,Random Urine < 12.0 mg/L (NO RANGE EST.); Microalbumin:Creatinine Ratio UNABLE TO CALCULATE mg/g CRE
[2024-06-15 13:18] LABS: Hemoglobin A1c 6.8 % (<=5.6)
== END | disposition home or self-care (01) ==
PROVIDERS: PCP Family Medicine; Visit Provider Family Medicine
DX: I10 Essential (primary) hypertension (principal); E11.9 Type 2 diabetes mellitus without complications
CPT/HCPCS: 36415; 80053; 80061; 82043; 82570; 83036; 85025

== ENCOUNTER → 2024-09-08 | Outpatient (CLI) | payer MEDICARE, SELFPAY ==
[2024-09-08 12:33] LABS: PSA,Total- Diagnostic 0.08 ng/mL (0.00-4.00)
== END | disposition home or self-care (01) ==
LOC: LAB 10:51
PROVIDERS: PCP Family Medicine; Referring Provider Nurse Practitioner; Visit Provider Nurse Practitioner
DX: C61 Malignant neoplasm of prostate (principal)
CPT/HCPCS: 36415; 84153

== ENCOUNTER 2024-09-10 19:40 | Emergency (ER) | payer MEDICARE, SELFPAY ==
[2024-09-10 19:43] VITALS: BP 140/85; PULSE 103; RESP 18; TEMP 37.6; O2SAT 97; BMI 25.2
[2024-09-10 20:44] VITALS: BP 143/84; PULSE 92; RESP 16; TEMP 37.4; O2SAT 95
[2024-09-10 21:00] VITALS: BP 143/84; PULSE 84; RESP 16; TEMP 37.2; O2SAT 96
--- NOTE | 2024-09-10 21:09 | EKG12_ITS ---
Test Reason : SOB Blood Pressure : */* mmHG Vent. Rate : 91 BPM Atrial Rate : 91 BPM P-R Int : 182 ms QRS Dur : 96 ms QT Int : 362 ms P-R-T Axes : 35 -38 19 degrees QTcB Int : 445 ms Normal sinus rhythm Left axis deviation Abnormal ECG Confirmed by Calin Choudhury ([id number]), news copy editor MAYRA GORDON ([id number]) on 09/13/2024 11:50:58 AM Referred By: Confirmed By: Calin Choudhury
[2024-09-10 21:22] LABS: Bacteria 0 SEEN /hpf (None Seen); Mucous, Urine 0 SEEN /hpf (<or=2+); Squamous Epithelial Cells - UA 0 SEEN /hpf (0-5); White Blood Cells 0 SEEN /hpf (0-5)
--- OUTSIDE RECORDS SUMMARY | 2024-09-10 21:23 | XMS RPT_ITS | CCD ---
Author Organization [facility]ini[facility] Care Team Providers Care Graphic Editor Name Role Phone Dr. Danny Garcia Primary Care Provider Dr. Jono Bazzi Attending Provider Dr. Ruben Parks Referring Provider CHARLES GUDINO Admitting Unavailable GUDINOCHARLES Mcarthur Attending Unavailable CHARLES GUDINO Primary Care Unavailable AMIE, DANNY Angeles Consulting Unavailable AMIE, DANNY A Referring Unavailable PROVIDER, UNKNOWN Consulting Unavailable OMBRANDT MORSE DO Admitting Unavailable OMLEY, BRANDT DO Attending Unavailable OMLEY, BRANDT DO Primary Care Unavailable AMIE, DANNY A Consulting Unavailable AMIE, DANNY A Referring Unavailable PROVIDER, UNKNOWN Consulting Unavailable MARIA E NASCIMENTO DPM Admitting Unavailable HORN, MARIA E DPM Attending Unavailable HORN, MARIA E DPM Primary Care Unavailable AMIE, DANNY A Consulting Unavailable PROVIDER, UNKNOWN Consulting Unavailable YOSI, MADY E Admitting Unavailable YOIS, MADY Valdez Attending Unavailable YOSI, MADY E Primary Care Unavailable AMIE, DANNY A Consulting Unavailable PROVIDER, UNKNOWN Consulting Unavailable Dr. Etienne Cuba Admit Provider Dr. Etienne Cuba Attending Provider Dr. Etienne Cuba Referring Provider [phone] Etienne Cuba Other Provider [phone] Dr. Tracy Fletcher Attending Provider Dr. Tracy Fletcher Other Provider Dr. Danny Garcia Primary Care Provider [phone] Danny Garcia Primary Care Provider [phone] Dr. Leroy Hinds Attending Provider Dr. Ruben Parks Referring Provider Dr. Danny Garcia Referring Provider Dr. Danny Garcia Primary Care Provider Dr. Leroy Hinds Attending Provider Dr. Ruben Parks Referring Provider Dr. Danny Garcia Referring Provider [phone] Dr. Danny Garcia DO Primary Care Provider Charly RIVERS, Dr. Ruben Wade Attending Provider Charly RIVERS, Dr. Ruben Wade Referring Provider Dr. Danny Garcia DO Attending Provider Danny Garcia Primary Care Unavailable Danny Garcia Attending Unavailable Danny Garcia Primary Care Unavailable Ruben Parks Referring Unavailable Ruben Parks Attending Unavailable Danny Garcia Primary Care Unavailable CharlyRuben Referring Unavailable CharlyRuben Attending Unavailable Allergies Allergy Classification Reported Allergen(s) Allergy Type Date of Onset Reaction(s) Facility (9 sources) Ibuprofen Drug Allergy 3 SWEATS AND HOT FLASH [facility] (9 sources) Naproxen Drug Allergy 3 SWEATS AND HOT FLASH [facility] (1 source) Ibuprofen Drug Allergy 3 [facility] (1 source) Naproxen Drug Allergy 3 [facility] Medications Current Medications Medication Drug Class(es) Dates Sig (Normalized) Sig (Original) acetaminophen 325 mg / oxyCODONE hydrochloride 5 mg oral tablet (9 sources) Opioid Agonist Start: 07-23-2022 take 1 tablet by mouth every six hours as needed for pain Oxycodone-Acetami nophen (Endocet) 5-325 mg tablet Active 1 {tbl} PO EVERY 6 HOURS as needed for pain 14 7 July 23, 2022 Apixaban (8 sources) Factor Xa Inhibitor Start: 08-03-2022 Apixaban (Eliquis Dvt-Pe Treat 30d Start) 5 mg (74 tabs) tablets,dose pack Active 0 .ROUTE .COMPLEX 74 August 02, 2022 11:00pm You will take 10 mg twice daily for 7 days followed by 5 mg twice daily thereafter Start: 08-03-2022 Apixaban (Eliq uis Dvt-Pe Treat 30d Start) 5 mg (74 tabs) tablets,dose pack Active 0 .ROUTE .COMPLEX 74 August 03, 2022 12:00am You will take 10 mg twice daily for 7 days followed by 5 mg twice daily thereafter cholecalciferol 0.125 mg oral tablet (9 sources) Vitamin D Start: 07-09-2022 take 1 tablet by mouth once daily Cholecalciferol (Vitamin D3) (Vitamin D3) 125 mcg (5,000 unit) Tablet Active 125 ug PO DAILY July 09, 2022 12:00am ciprofloxacin 500 mg oral tablet (1 source) Quinolone Antimicrobial Start: 07-23-2022 take 1 tablet by mouth twice daily Ciprofloxacin Hcl (Cipro) 500 mg tablet Active 500 MG PO TWICE A DAY July 23, 2022 12:00am docusate sodium 100 mg oral capsule (9 sources) Start: 07-23-2022 take 1 capsule by mouth twice daily Docusate Sodium (Colace) 100 mg capsule Active 100 mg PO TWICE A DAY July 23, 2022 12:00am 0.375 ml leuprolide acetate 60 mg/ml prefilled syringe (5 sources) Gonadotropin Releasing Hormone Receptor Agonist Start: 12-04-2022 Leuprolide (3 Month) (Eligard (3 Month)) 22.5 mg syringe Active 22.5 mg SC every 3 months December 04, 2022 12:00am Magnesium glycinate (9 sources) Start: 07-09-2022 Magnesium Bys Glycinate Active 1 NMA SL/PO DAILY July 09, 2022 12:00am Start: 07-09-2022 Magnesium Bys Glycinate Active 1 PKG SL/PO DAILY July 08, 2022 11:00pm Start: 07-09-2022 Magnesium Bys Glycinate Active 1 PKG SL/PO DAILY July 09, 2022 12:00am [place]-3 Fatty Acids (7 sources) Start: 08-01-2022 [facility] [place]-3 Fatty Acids Active 1 CAP PO DAILY July 31, 2022 11:00pm Start: 08-01-2022 take 1 capsule by mouth once d aily [place]-3 Fatty Acids Active 1 CAP PO DAILY August 01, 2022 12:00am [place]-3 Fatty Acids Capsule (1 source) Start: 08-01-2022 [place]-3 Fatty Acids Capsule Active 1 NMA PO DAILY August 01, 2022 12:00am thioctic acid 300 mg oral capsule (9 sources) Start: 07-09-2022 take 1 capsule by mouth once daily Alpha Lipoic Acid 300 mg Capsule Active 300 mg PO DAILY July 09, 2022 12:00am vitamin k2 0.1 mg oral capsule (9 sources) Start: 07-09-2022 Vitamin K2 100 mcg Capsule Active 100 ug PO DAILY July 09, 2022 12:00am Zinc (9 sources) Start: 07-09-2022 Zinc 50 mg Tab let Active 15 mg PO DAILY July 09, 2022 12:00am Start: 07-09-2022 take 15 mg by mouth once daily Zinc Active 15 MG PO DAILY July 08, 2022 11:00pm Start: 07-09-2022 take 15 mg by mouth once daily Zinc Active 15 MG PO DAILY July 09, 2022 12:00am Problems Active Problems Problem Classification Problem Date Documented Da te Episodic/Chronic Cancer of prostate (20 sources) Malignant tumor of prostate; Translations: [Malignant neoplasm of prostate] Onset: 04-11-2024 07-23-2022 Chronic Essential hypertension (1 source) Essential (primary) hypertension; Translations: [Essential (primary) hypertension] Onset: 06-20-2024 Chronic Pulmonary heart disease (11 sources) Acute pulmonary embolism; Translations: [Other pulmonary embolism without acute cor pulmonale] 08-01-2022 Episodic Past or Other Problems Problem Classification Problem Date Documented Da [...] Results Test Name Value Interpretation Reference Range Facility Absolute neutrophil countOrd ered By: Danny Garcia on 06-15-2024 Neutrophils (Bld) [#/Vol] 2.7 10*3/uL 2.0-7.7 [facility] Albumin DL <= 20 mg/L (U) [M ass/Vol]Ordered By: Danny Garcia on 06-15-2024 Urine Random Microalbumin < 12.0 mg/L NO RANGE EST. [facility] Anion gap in Serum or Plasma Ordered By: Danny Garcia on 06-15-2024 Anion gap [Moles/Vol] 11 mmol/L 5- [facility] BUN/creatinine ratioOrdered By: Danny Garcia on 06-15-2024 Urea nitrogen/Creatinine [Mass ratio] 17.7 mg/mg 10- [facility] Basophil percentageOrdered B y: Danny Garcia on 06-15-2024 Basophils/100 WBC (Bld) 1.4 % High 0-1 [facility] Bilirubin, totalOrdered By: Danny Garcia on 06-15-2024 Bilirubin [Mass/Vol] 0.48 mg/dL 0.00-1.30 [facility] CBC W/Diff, Automatedon 05-22 Absolute Lymph 1.47 X10 3/uL Normal 0.83-4.51 [facility] Comment on above: Performed By: #### L 100.0100, L502.0250, L500.4100, L500.4050, L501.9985 #### [facility] [address] [place], [address] Absolute Neut 2.7 X10 3/uL Normal 2.0-7.7 [facility] Comment on above: Performed By: #### L 100.0100, L502.0250, L500.4100, L500.4050, L501.9985 #### [facility] [address] [place], [address] Basophils/100 WBC (Bld) 1.4 % High 0-1 [facility] Comment on above: Performed By: #### L 100.0100, L502.0250, L500.4100, L500.4050, L501.9985 #### [facility] [address] [place], [address] Eosinophils/100 WBC (Bld) 6.9 % High 0-5 [facility] Comment on above: Performed By: #### L 100.0100, L502.0250, L500.4100, L500.4050, L501.9985 #### [facility] [address] [place], [address] Erythrocyte distribution width (RBC) [Ratio] 13.8 % Normal 11.6-14.6 [facility] Comment on above: Performed By: #### L 100.0100, L502.0250, L500.4100, L500.4050, L501.9985 #### [facility] [address] [place], [address] Hematocrit (Bld) [Volume fraction] 44.7 % Normal 40-54 [facility] Comment on above: Performed By: #### L 100.0100, L502.0250, L500.4100, L500.4050, L501.9985 #### [facility] [address] [place], [address] Hemoglobin (Bld) [Mass/Vol] 14.7 g/dL Normal 13.0-16.5 [facility] Comment on above: Performed By: #### L 100.0100, L502.0250, L500.4100, L500.4050, L501.9985 #### [facility] [address] [place], [address] IG% 0.400 Normal 0.0-0.9 [facility] Comment on above: Result Comment: IG% - Immature Granulocytes (promyelocytes, myelocytes and metamyelocytes) > 1% indicates that a LEFT SHIFT is Present. Performed By: #### L 100.0100, L502.0250, L500.4100, L500.4050, L501.9985 #### [facility] [address] [place], [address] Lymphocytes/100 WBC (Bld) 29.9 % Normal 19-41 [facility] Comment on above: Performed By: #### L 100.0100, L502.0250, L500.4100, L500.4050, L501.9985 #### [facility] [address] [place], [address] MCH (RBC) [Entitic mass] 29.6 pg Normal 27.0-32.0 [facility] Comment on above: Performed By: #### L 100.0100, L502.0250, L500.4100, L500.4050, L501.9985 #### [facility] [address] [place], [address] MCHC (RBC) [Mass/Vol] 32.9 g/dL Normal 32-36 [facility] Comment on above: Performed By: #### L 100.0100, L502.0250, L500.4100, L500.4050, L501.9985 #### [facility] [address] [place], [address] MCV (RBC) [Entitic vol] 90.1 fL Normal 80-94 [facility] Comment on above: Performed By: #### L 100.0100, L502.0250, L500.4100, L500.4050, L501.9985 #### [facility] [address] [place], [address] Monocytes/100 WBC (Bld) 7.5 % Normal 0-10 [facility] Comment on above: Performed By: #### L 100.0100, L502.0250, L500.4100, L500.4050, L501.9985 #### [facility] [address] [place], [address] Neutrophils/100 WBC (Bld) 53.9 % Normal 47-70 [facility] Comment on above: Performed By: #### L 100.0100, L502.0250, L500.4100, L500.4050, L501.9985 #### [facility] [address] [place], [address] Nucleated RBC (Bld) [#/Vol] 0 10*3/uL Normal 0-5 [facility] Comment on above: Performed By: #### L 100.0100, L502.0250, L500.4100, L500.4050, L501.9985 #### [facility] [address] [place], [address] Platelet mean volume (Bld) [Entitic vol] 11.1 fL Normal 6.2-12.0 [facility] Comment on above: Performed By: #### L 100.0100, L502.0250, L500.4100, L500.4050, L501.9985 #### [facility] [address] [place], [address] Platelets (Bld) [#/Vol] 211 10*3/uL Normal 150-450 [facility] Comment on above: Performed By: #### L 100.0100, L502.0250, L500.4100, L500.4050, L501.9985 #### [facility] [address] [place], [address] RBC (Bld) [#/Vol] 4.96 10*6/uL Normal 4.6-6.2 [facility] Comment on above: Performed By: #### L 100.0100, L502.0250, L500.4100, L500.4050, L501.9985 #### [facility] [address] [place], [address] RDW SD 45.4 fl High 35.1-43.9 [facility] Comment on above: Performed By: #### L 100.0100, L502.0250, L500.4100, L500.4050, L501.9985 #### [facility] [address] [place], [place], [id number] WBC (Bld) [#/Vol] 4.9 10*3/uL Normal 4.4-11.0 [facility] Comment on above: Performed By: #### L 100.0100, L502.0250, L500.4100, L500.4050, L501.9985 #### [facility] [address] [place], [place], [id number] Calculated very low density lipoprotein (VLDL) cholesterol measurementOrdered By: Danny Garcia on 06-15-2024 VLDL Cholesterol 26 mg/dL 5-40 [facility] Carbon dioxide, total [Moles /volume] in Central venous bloodOrdered By: Danny Garcia on 06-15-2024 CO2 [Moles/Vol] 23.5 mmol/L 21.0-32.0 [facility] Chloride assayOrdered By: Cathy Garcia on 06-15-2024 Chloride [Moles/Vol] 106 mmol/L 98-108 [facility] Comprehensive Metabolic Prof ilon 06-15-2024 Albumin [Mass/Vol] 4.3 g/dL Normal 3.4-4.8 [facility] Comment on above: Performed By: #### L 100.0100, L502.0250, L500.4100, L500.4050, L501.9985 #### [facility] [address] [place], [place], [id number] Albumin/Globulin [Mass ratio] 1.8 {ratio} Normal 0.9-2.4 [facility] Comment on above: Performed By: #### L 100.0100, L502.0250, L500.4100, L500.4050, L501.9985 #### [facility] [address] [place], [address] ALK PHOS 65 U/L Normal 40-129 [facility] Comment on above: Performed By: #### L 100.0100, L502.0250, L500.4100, L500.4050, L501.9985 #### [facility] [address] [place], [address] ALT [Catalytic activity/Vol] 30 U/L Normal <=46 [facility] Comment on above: Performed By: #### L 100.0100, L502.0250, L500.4100, L500.4050, L501.9985 #### [facility] [address] [place], [address] AST [Catalytic activity/Vol] 28 U/L Normal <=37 [facility] Comment on above: Performed By: #### L 100.0100, L502.0250, L500.4100, L500.4050, L501.9985 #### [facility] [address] [place], [address] Bilirubin [Mass/Vol] 0.48 mg/dL Normal 0.00-1.30 [facility] Comment on above: Performed By: #### L 100.0100, L502.0250, L500.4100, L500.4050, L501.9985 #### [facility] [address] [place], [address] BUN/CRE 17.7 RATIO Normal 10-20 [facility] Comment on above: Performed By: #### L 100.0100, L502.0250, L500.4100, L500.4050, L501.9985 #### [facility] [address] [place], [address] Calcium [Mass/Vol] 8.9 mg/dL Normal 7.6-11.0 [facility] Comment on above: Performed By: #### L 100.0100, L502.0250, L500.4100, L500.4050, L501.9985 #### [facility] [address] [place], [address] Chloride [Moles/Vol] 106 mmol/L Normal 98-108 [facility] Comment on above: Performed By: #### L 100.0100, L502.0250, L500.4100, L500.4050, L501.9985 #### [facility] [address] [place], [address] CO2 [Moles/Vol] 23.5 mmol/L Normal 21.0-32.0 [facility] Comment on above: Performed By: #### L 100.0100, L502.0250, L500.4100, L500.4050, L501.9985 #### [facility] [address] [place], [address] Creatinine [Mass/Vol] 0.82 mg/dL Normal 0.70-1.20 [facility] Comment on above: Performed By: #### L 100.0100, L502.0250, L500.4100, L500.4050, L501.9985 #### [facility] [address] [place], [address] GAP 11 Normal 5-15 [facility] Comment on above: Performed By: #### L 100.0100, L502.0250, L500.4100, L500.4050, L501.9985 #### [facility] [address] [place], [address] GFR/1.73 sq M.predicted among non-blacks MDRD (S/P/Bld) [Vol rate/Area] 93 mL/min/{1.73_m2} Normal >60 [facility] Comment on above: Result Comment: mL/m in/1.73m2 CKD-EPI Creatinine Equation (2020) Performed By: #### L 100.0100, L502.0250, L500.4100, L500.4050, L501.9985 #### [facility] [address] [place], [address] Globulin (S) [Mass/Vol] 2.4 g/dL Normal 2.2-4.2 [facility] Comment on above: Performed By: #### L 100.0100, L502.0250, L500.4100, L500.4050, L501.9985 #### [facility] [address] [place], [address] Glucose [Mass/Vol] 161 mg/dL High 70-99 [facility] Comment on above: Performed By: #### L 100.0100, L502.0250, L500.4100, L500.4050, L501.9985 #### [facility] [address] [place], [address] Potassium [Moles/Vol] 4.5 mmol/L Normal 3.3-5.1 [facility] Comment on above: Performed By: #### L 100.0100, L502.0250, L500.4100, L500.4050, L501.9985 #### [facility] [address] [place], [address] Sodium [Moles/Vol] 141 mmol/L Normal 133-145 [facility] Comment on above: Performed By: #### L 100.0100, L502.0250, L500.4100, L500.4050, L501.9985 #### [facility] [address] [place], [address] T PROT 6.7 g/dL Normal 5.9-8.4 [facility] Comment on above: Performed By: #### L 100.0100, L502.0250, L500.4100, L500.4050, L501.9985 #### [facility] [address] [place], [place], [id number] Urea nitrogen [Mass/Vol] 15 mg/dL Normal 4-19 [facility] Comment on above: Performed By: #### L 100.0100, L502.0250, L500.4100, L500.4050, L501.9985 #### [facility] [address] [place], [place], [address] Creatinine Unsp time (U) [Ma ss/Vol]Ordered By: Danny Garcia on 06-15-2024 Creatinine (U) [Mass/Vol] 81.10 mg/dL 39.00-259 .00 [facility] Eosinophil percentageOrdered By: Danny Garcia on 06-15-2024 Eosinophils/100 WBC (Bld) 6.9 % High 0-5 [facility] Erythrocyte distribution wid th ratioOrdered By: Danny Garcia on 06-15-2024 Erythrocyte distribution width (RBC) [Ratio] 13.8 % 11.6-14.6 [facility] Erythrocyte distribution wid th standard deviationOrdered By: Danny Garcia on 06-15-2024 Erythrocyte distribution width (RBC) [Entitic vol] 45.4 fL High 35.1-43.9 [facility] GFR/1.73 sq M.predicted khoi g non-blacks MDRD (S/P/Bld) [Vol rate/Area]Ordered By: Danny Garcia on 06-15-2024 Estimated GFR (MDRD) Non-Af Amer 93 >60 [facility] Comment on above: mL/min/1.73m2 CKD-EP I Creatinine Equation (2020) Hematocrit Auto (Bld) [Volum e fraction]Ordered By: Danny Garcia on 06-15-2024 Hematocrit (Bld) [Volume fraction] 44.7 % 40-54 [facility] Hemoglobin A1con 06-15-2024 HbA1c (Bld) [Mass fraction] 6.8 % Normal <=5.6 [facility] Comment on above: Performed By: #### L 100.0100, L502.0250, L500.4100, L500.4050, L501.9985 #### [facility] [address] [place], [place], [id number] Hemoglobin A1c percentageOrd ered By: Danny Garcia on 06-15-2024 HbA1c (Bld) [Mass fraction] 6.8 % >5.7 [facility] Hemoglobin measurementOrdere d By: Danny Garcia on 06-15-2024 Hemoglobin (Bld) [Mass/Vol] 14.7 g/dL 13.0-16.5 [facility] Immature granulocytes/100 WB C Auto (Bld)Ordered By: Danny Garcia on 06-15-2024 Immature granulocytes/100 WBC (Bld) 0.400 % 0.0-0.9 [facility] Comment on above: IG% - Immature Granu locytes (promyelocytes, myelocytes and metamyelocytes) > 1% indicates that a LEFT SHIFT is Present. LDL calc ser/plasOrdered By: Danny Garcia on 06-15-2024 LDL Cholesterol, Calculated 132 mg/dL [facility] Comment on above: Pkdjkjxktw=360-989 m g/dL & Higher Uyhz=473 mg/dL or greater Laboratory - Chemistry and C hemistry - challengeOrdered By: Danny Garcia on 06-15-2024 AST [Catalytic activity/Vol] 28 U/L <38 [facility] Lipid Profileon 06-15-2024 CHOL:HDL 3.88 Normal [facility] Comment on above: Performed By: #### L 100.0100, L502.0250, L500.4100, L500.4050, L501.9985 #### [facility] [address] [place], [place], [id number] Cholesterol [Mass/Vol] 212 mg/dL High <=200 [facility] Comment on above: Result Comment: Chol esterol level, Desirable <200 mg/dL Borderline high cholesterol 200-239 mg/dL High cholesterol >=240 mg/dL Recommendations of the NCEP Adult Treatment Panel for the following risk-cutoff thresholds for the [place] population. Performed By: #### L 100.0100, L502.0250, L500.4100, L500.4050, L501.9985 #### [facility] [address] [place], [address] Cholesterol in HDL [Mass/Vol] 55 mg/dL Normal [facility] Comment on above: Result Comment: Antionette onal Cholesterol Education Program (NCEP) guidelines: <40 mg/dL: Low HDL-cholesterol (major risk factor for CHD) >= 60 mg/dL: High HDL-cholesterol (negative risk factor for CHD) HDL-cholesterol is affected by a number of factors, e.g. smoking, exercise, hormones, sex and age. Performed By: #### L 100.0100, L502.0250, L500.4100, L500.4050, L501.9985 #### [facility] [address] [place], [address] Cholesterol in LDL [Mass/Vol] 132 mg/dL Normal [facility] Comment on above: Result Comment: Bord lgfcpc=564-455 mg/dL Higher Tvwd=754 mg/dL or greater Performed By: #### L 100.0100, L502.0250, L500.4100, L500.4050, L501.9985 #### [facility] [address] [place], [address] Cholesterol in VLDL [Mass/Vol] 26 mg/dL Normal 5-40 [facility] Comment on above: Performed By: #### L 100.0100, L502.0250, L500.4100, L500.4050, L501.9985 #### [facility] [address] [place], [address] Triglyceride [Mass/Vol] 129 mg/dL Normal [facility] Comment on above: Result Comment: The drugs N-Acetylcysteine and Metamizole may falsely depress this assay. Normal range: <150 mg/dL Borderline High: 150-199 mg/dL High: 200-499 mg/dL Very High: >500 mg/dL Performed By: #### L 100.0100, L502.0250, L500.4100, L500.4050, L501.9985 #### [facility] [address] [place], [place], [id number] Lymphocytes Auto (Unsp spec) [#/Vol]Ordered By: Danny Garcia on 06-15-2024 Lymphocytes (Bld) [#/Vol] 1.47 10*3/uL 0.83-4.5 1 [facility] Lymphocytes/100 WBC Auto (Un sp spec)Ordered By: Danny Garcia on 06-15-2024 Lymphocytes/100 WBC (Bld) 29.9 % 19-41 [facility] MCV (mean corpuscular volume ) determinationOrdered By: Danny Garcia on 06-15-2024 MCV (RBC) [Entitic vol] 90.1 fL 80-94 [facility] Mean corpuscular hemoglobin (MCH) determinationOrdered By: Danny Garcia on 06-15-2024 MCH (RBC) [Entitic mass] 29.6 pg 27.0-32.0 [facility] Mean corpuscular hemoglobin concentration (MCHC) determinationOrdered By: Danny Garcia on 06-15-2024 MCHC (RBC) [Mass/Vol] 32.9 g/dL 32-36 [facility] Mean platelet volume determi nationOrdered By: Danny Garcia on 06-15-2024 Platelet mean volume (Bld) [Entitic vol] 11.1 fL 6.2-12.0 [facility] Microalb:Creat Ratio,Random URon 06-15-2024 Creatinine [Mass/Vol] 81.10 mg/dL Normal 39.00-259.00 [facility] Comment on above: Performed By: #### L 100.0100, L502.0250, L500.4100, L500.4050, L501.9985 #### [facility] [address] [place], [place], [id number] MALB:CREAT UNABLE TO CALCULATE Normal [facility] Comment on above: Performed By: #### L 100.0100, L502.0250, L500.4100, L500.4050, L501.9985 #### [facility] [address] [place], [place], [id number] (517) MICROALBUMIN,UR < 12.0 Normal NO RANGE EST. [facility] Comment on above: Performed By: #### L 100.0100, L502.0250, L500.4100, L500.4050, L501.9985 #### [facility] [address] [place], [address] Microalbumin/creat ratio urO rdered By: Danny Garcia on 06-15-2024 Urine Microalbumin/Creatinine Ratio UNABLE TO CALCULATE mg/g CRE [facility] Monocyte percentageOrdered B y: Danny Garcia on 06-15-2024 Monocytes/100 WBC (Bld) 7.5 % 0-10 [facility] Neutrophil percentageOrdered By: Danny Garcia on 06-15-2024 Neutrophils/100 WBC (Bld) 53.9 % 47-70 [facility] Nucleated red blood cell per centageOrdered By: Danny Garcia on 06-15-2024 Nucleated RBC/100 WBC (Bld) [Ratio] 0 % 0-5 [facility] Platelet countOrdered By: Cathy Garcia on 06-15-2024 Platelets (Bld) [#/Vol] 211 10*3/uL 150-450 [facility] Potassium (Unsp spec) [Mass/ Vol]Ordered By: Danny Garcia on 06-15-2024 Potassium [Moles/Vol] 4.5 mmol/L 3.3-5.1 [facility] RBC Auto (Bld) [#/Vol]Ordere d By: Danny Garcia on 06-15-2024 RBC (Bld) [#/Vol] 4.96 10*6/uL 4.6-6.2 [facility] Screening total cholesterol/ high density lipoprotein (HDL) cholesterol ratioOrdered By: Danny Garcia on 06-15-2024 Cholesterol.total/Cholest veronica in HDL [Mass ratio] 3.88 {ratio} [facility] Serum creatinine measurement (mass/volume)Ordered By: Danny Garcia on 06-15-2024 Creatinine [Mass/Vol] 0.82 mg/dL 0.70-1.20 [facility] Serum globulin measurementOr dered By: Danny Garcia on 06-15-2024 Globulin (S) [Mass/Vol] 2.4 g/dL 2.2-4.2 [facility] Serum glucose measurement (m ass/volume)Ordered By: Danny Garcia on 06-15-2024 Glucose [Mass/Vol] 161 mg/dL High 70-99 [facility] Serum or plasma alanine campbell otransferase (ALT) measurementOrdered By: Danny Garcia on 06-15-2024 ALT [Catalytic activity/Vol] 30 U/L <47 [facility] Serum or plasma albumin tisha urement (mass/volume)Ordered By: Danny Garcia on 06-15-2024 Albumin [Mass/Vol] 4.3 g/dL 3.4-4.8 [facility] Serum or plasma albumin/glob ulin mass ratioOrdered By: Danny Garcia on 06-15-2024 Albumin/Globulin [Mass ratio] 1.8 {ratio} 0.9-2.4 [facility] Serum or plasma alkaline nate sphatase measurementOrdered By: Danny Garcia on 06-15-2024 ALP [Catalytic activity/Vol] 65 U/L 40-129 [facility] Serum or plasma calcium tisha urement (mass/volume)Ordered By: Danny Garcia on 06-15-2024 Calcium [Mass/Vol] 8.9 mg/dL 7.6-11.0 [facility] Serum or plasma cholesterol in HDL measurement (mass/volume)Ordered By: Danny Garcia on 06-15-2024 Cholesterol in HDL [Mass/Vol] 55 mg/dL >40 [facility] Comment on above: National Cholesterol Education Program (NCEP) guidelines:<40 mg/dL: Low HDL-cholesterol (major risk factor for CHD)>= 60 mg/dL: High HDL-cholesterol (negative risk factor for CHD)HDL-cholesterol is affected by a number of factors, e.g. smoking, exercise, hormones, sex and age. Serum or plasma cholesterol measurement (mass/volume)Ordered By: Danny Garcia on 06-15-2024 Cholesterol [Mass/Vol] 212 mg/dL High <201 [facility] Comment on above: Cholesterol level, D esirable <200 mg/dLBorderline high cholesterol 200-239 mg/dLHigh cholesterol >=240 mg/dLRecommendations of the NCEP Adult Treatment Panel for the following risk-cutoff thresholds for the [place] population. Serum or plasma urea nitroge n measurement (mass/volume)Ordered By: Danny Garcia on 06-15-2024 Urea nitrogen [Mass/Vol] 15 mg/dL - [facility] Sodium levelOrdered By: Danny Garcia on 06-15-2024 Sodium [Moles/Vol] 141 mmol/L 133-145 [facility] Total proteinOrdered By: Lucia Garcia on 06-15-2024 Protein [Mass/Vol] 6.7 g/dL 5.9-8.4 [facility] Triglycerides measurementOrd ered By: Danny Garcia on 06-15-2024 Triglyceride [Mass/Vol] 129 mg/dL <199 [facility] Comment on above: The drugs N-Acetylcy steine and Metamizole may falsely depress this assay. Normal range: <150 mg/dLBorderline High: 150-199 mg/dLHigh: 200-499 mg/dLVery High: >500 mg/dL White blood cell (WBC) count Ordered By: Danny Garcia on 06-15-2024 WBC (Bld) [#/Vol] 4.9 10*3/uL 4.4-11.0 [facility] Testosterone, Serum Totalon 03-10-2024 Testosterone [Mass/Vol] 8.71 ng/dL Normal [facility] Comment on above: Result Comment: CENT RAL 90% REFERENCE RANGES MALE AGE <50 197.44 - 669.58 ng/dL MALE AGE > or = 50 187.72 - 684.19 ng/dL FEMALE AGE <50 8.38 - 35.01 ng/dL FEMALE AGE > or = 50 <7.00 - 35.92 ng/dL Effective as of 10/16/20 Performed By: #### L 501.9940, L509.3000 #### [facility] [address] [place], [place], [address] Diagnostic total prostate sp ecific antigen (PSA) measurementOrdered By: Ruben Parks on 03-08-2024 Prostate Specific Antigen Total < 0.01 ng/mL 0.0-4.0 [facility] Comment on above: This test was perfor med using the TPSA assay method for theWeDeliver chemistry system. Values obtained with differentassay methods cannot be used interchangably.When changing PSA assays in the course of monitoring apatient, additional sequential testing should be carriedout to confirm baseline values. PSA,Total- Diagnosticon 02-20 PSA, DIAGNOSTIC < 0.01 Normal 0.0-4.0 [facility] Comment on above: Result Comment: This test was performed using the TPSA assay method for the [employer] chemistry system. Values obtained with different assay methods cannot be used interchangably. When changing PSA assays in the course of monitoring a patient, additional sequential testing should be carried out to confirm baseline values. Performed By: #### L 501.9940, L509.3000 #### [facility] [address] [place], [place], [address] Testosterone, totalOrdered B y: Ruben Parks on 03-08-2024 Testosterone [Mass/Vol] 8.71 ng/dL [facility] Comment on above: CENTRAL 90% REFERENC E RANGES MALE AGE <50 197.44 - 669.58 ng/dL MALE AGE > or = 50 187.72 - 684.19 ng/dL FEMALE AGE <50 8.38 - 35.01 ng/dL FEMALE AGE > or = 50 <7.00 - 35.92 ng/dL Effective as of 10/16/20 PSA,Total- Diagnosticon 08-21 PSA, DIAGNOSTIC < 0.01 Normal 0.0-4.0 [facility] Comment on above: Result Comment: This test was performed using the TPSA assay method for the [employer] chemistry system. Values obtained with different assay methods cannot be used interchangably. When changing PSA assays in the course of monitoring a patient, additional sequential testing should be carried out to confirm baseline values. Performed By: #### L 501.9940 #### [facility] [address] [place], [address] Basophil percentageOrdered B y: Gloria Stewart on 06-04-2023 Basophil percentage < 0.01 ng/mL 0.0-4.0 [facility] Comment on above: This test was perfor med using the TPSA assay method for theWeDeliver chemistry system. Values obtained with differentassay methods cannot be used interchangably.When changing PSA assays in the course of monitoring apatient, additional sequential testing should be carriedout to confirm baseline values. Basophil percentageOrdered B y: Danny Garcia on 04-27-2023 Bilirubin [Mass/Vol] 0.60 mg/dL 0.20-1.00 [facility] Comment on above: For patients on eltr ombopag therapy, use of Dimension [place] TBIL is not recommended. Chloride [Moles/Vol] 107 mmol/L 98-107 [facility] Cholesterol [Mass/Vol] 203 mg/dL <200 [facility] Comment on above: <200 mg/dL Desirable 200-240 mg/dL Borderline >240 mg/dL High Risk Glucose [Mass/Vol] 182 mg/dL 74-106 [facility] Comment on above: Fasting Glucose resu lt greater than or equal to 126 mg/dL suggests DIABETES MELLITUS per A.D.A. criteria. Potassium [Moles/Vol] 4.0 mmol/L 3.5-5.1 [facility] Protein [Mass/Vol] 7.2 g/dL 6.4-8.2 [facility] Sodium [Moles/Vol] 140 mmol/L 136-145 [facility] Triglyceride [Mass/Vol] 150 mg/dL <199 [facility] Comment on above: The drugs N-Acetylcy steine and Metamizole may falsely depress this assay.Serum Triglycerides Reference Interval Normal <150 mg/dL Borderline high 150 - 199 mg/dL High 200 - 499 mg/dL Very High > or = 500 mg/dL Laboratory - Chemistry and C hemistry - challengeOrdered By: Danny Garcia on 04-27-2023 Albumin/Creatinine DL <= 1.0 mg/L (24H U) [Ratio] 8.8 mg/g CRE <30 [facility] Albumin/Globulin [Mass ratio] 0.9 {ratio} 0.9-2.4 [facility] ALP [Catalytic activity/Vol] 68 U/L 45-117 [facility] ALT [Catalytic activity/Vol] 42 U/L 16-61 [facility] Cholesterol in HDL [Mass/Vol] 49 mg/dL >40 [facility] Comment on above: The drugs N-Acetylcy steine and Metamizole may falsely depress this assay. Reference Range HDL <40 mg/dL Low HDL Cholesterol HDL >or= 60 mg/dL High HDL Cholesterol Cholesterol in LDL [Mass/Vol] 124 mg/dL 0-130 [facility] CO2 [Moles/Vol] 25.0 mmol/L 21.0-32.0 [facility] Globulin (S) [Mass/Vol] 3.7 g/dL 2.2-4.2 [facility] Urea nitrogen/Creatinine [Mass ratio] 15.0 mg/mg 10-20 [facility] No Panel InformationOrdered By: Danny Garcia on 04-27-2023 Estimated GFR (MDRD) Amer 87 mL/min >60 [facility] Comment on above: GFR Calc Estimated GFR (MDRD) Non-Af Amer 72 mL/min >60 [facility] Comment on above: Non- GFR Calc VLDL Cholesterol 30 mg/dL 5-40 [facility] Serum or plasma calcium tisha urement (mass/volume)Ordered By: Danny Garcia on 04-27-2023 Calcium [Mass/Vol] 8.9 mg/dL 8.5-10.1 [facility] Serum or plasma creatinine m easurement (mass/volume)Ordered By: Danny Garcia on 04-27-2023 Creatinine [Mass/Vol] 1.07 mg/dL 0.70-1.30 [facility] Comment on above: The validity of the calculated GFR & GFRAA in patients over 70 years has not been determined. Clinical correlation is essential. Serum or plasma urea nitroge n measurement (mass/volume)Ordered By: Danny Garcia on 04-27-2023 Urea nitrogen [Mass/Vol] 16 mg/dL 7-18 [facility] Thin prep Papanicolaou smear with manual screeningOrdered By: Danny Garcia on 04-27-2023 Thin prep Papanicolaou smear with manual screening 3.5 g/dL 3.2-5.0 [facility] Thin prep Papanicolaou smear with manual screening 23 U/L 15-37 [facility] Thin prep Papanicolaou smear with manual screening 8 5-15 [facility] Thin prep Papanicolaou smear with manual screening 8.7 mg/L NO RANGE EST. [facility] Urine creatinine measurement (mass/volume)Ordered By: Danny Garcia on 04-27-2023 Creatinine (U) [Mass/Vol] 99.10 mg/dL NO RANGE EST. [facility] Whole blood hemoglobin A1c/t otal hemoglobin ratio (mass fraction)Ordered By: Danny Garcia on 04-27-2023 HbA1c (Bld) [Mass fraction] 7.9 % 3.8-5.6 [facility] Comment on above: Normal < 5.7 % Predi abetic 5.7 - 6.4 % Diabetic >or= 6.5 % Please note range changes. No Panel InformationOrdered By: Gloria Stewart on 03-02-2023 Prostate Specific Antigen Total 0.09 ng/mL 0.0-4.0 [facility] Comment on above: This test was perfor med using the TPSA assay method for theDimension chemistry system. Values obtained with differentassay methods cannot be used interchangably.When changing PSA assays in the course of monitoring apatient, additional sequential testing should be carriedout to confirm baseline values. Basophil percentageOrdered B y: Leroy Hinds on 12-02-2022 Creatinine [Mass/Vol] 1.0 mg/dL 0.70-1.30 [facility] No Panel InformationOrdered By: Leroy Hinds on 12-02-2022 Bedside Estimated GFR (eGFR) > 60.0000 mL/min >60 [facility] No Panel InformationOrdered By: Ruben Parks on 11-13-2022 Prostate Specific Antigen Total 19.30 ng/mL 0.0-4.0 [facility] Comment on above: This test was perfor med using the TPSA assay method for theDimension chemistry system. Values obtained with differentassay methods cannot be used interchangably.When changing PSA assays in the course of monitoring apatient, additional sequential testing should be carriedout to confirm baseline values. Absolute lymphocyte countOrd ered By: Danny Garcia on 08-25-2022 Lymphocytes Auto (Unsp spec) [#/Vol] 1.87 10*3/uL 0.83-4.51 [facility] Basophil percentageOrdered B y: Danny Garcia on 08-25-2022 Basophils/100 WBC (Bld) 0.9 % 0-1 [facility] Eosinophils/100 WBC (Bld) 5.6 % 0-5 [facility] Neutrophils (Bld) [#/Vol] 3.0 10*3/uL 2.0-7.7 [facility] Neutrophils/100 WBC (Bld) 52.9 % 47-70 [facility] WBC (Bld) [#/Vol] 5.7 10*3/uL 4.4-11.0 [facility] Blood erythrocytes count (nu mber/volume)Ordered By: Danny Garcia on 08-25-2022 RBC (Bld) [#/Vol] 4.98 10*6/uL 4.6-6.2 [facility] Blood hemoglobin measurement (mass/volume)Ordered By: Danny Garcia on 08-25-2022 Hemoglobin (Bld) [Mass/Vol] 14.9 g/dL 13.0-16.5 [facility] Blood lymphocytes/100 leukoc ytesOrdered By: Danny Garcia on 08-25-2022 Lymphocytes/100 WBC (Bld) 33.0 % 19-41 [facility] Blood monocytes/100 leukocyt esOrdered By: Danny Garcia on 08-25-2022 Monocytes/100 WBC (Bld) 7.1 % 0-10 [facility] Blood platelet mean volumeOr dered By: Danny Garcia on 08-25-2022 Platelet mean volume (Bld) [Entitic vol] 12.7 fL 6.2-12.0 [facility] Determination of erythrocyte mean corpuscular volume (MCV)Ordered By: Danny Garcia on 08-25-2022 MCV (RBC) [Entitic vol] 91.0 fL 80-94 [facility] Hematocrit Auto (Bld) [Volum e fraction]Ordered By: Danny Garcia on 08-25-2022 Hematocrit (Bld) [Volume fraction] 45.3 % 40-54 [facility] - Hematology and Cell countsOrdered By: Danny Garcia on 08-25-2022 Erythrocyte distribution width (RBC) [Entitic vol] 46.4 fL 35.1-43.9 [facility] Erythrocyte distribution width (RBC) [Ratio] 13.8 % 11.6-14.6 [facility] Immature granulocytes/100 WBC (Bld) 0.500 % 0.0-0.9 [facility] Comment on above: IG% - Immature Granu locytes (promyelocytes, myelocytes and metamyelocytes) > 1% indicates that a LEFT SHIFT is Present. MCH (RBC) [Entitic mass] 29.9 pg 27.0-32.0 [facility] Nucleated RBC/100 WBC (Bld) [Ratio] 0 % 0-5 [facility] MCHC Auto (RBC) [Mass/Vol]Or dered By: Danny Garcia on 08-25-2022 MCHC (RBC) [Mass/Vol] 32.9 g/dL 32-36 [facility] Platelets bldOrdered By: Lucia Garcia on 08-25-2022 Platelets (Bld) [#/Vol] 188 10*3/uL 150-450 [facility] Whole blood hemoglobin A1c/t otal hemoglobin ratio (mass fraction)Ordered By: Danny Garcia on 08-25-2022 HbA1c (Bld) [Mass fraction] 7.3 % 3.8-5.6 [facility] Comment on above: Normal < 5.7 % Predi abetic 5.7 - 6.4 % Diabetic >or= 6.5 % Please note range changes. Absolute lymphocyte countOrd ered By: Dr. Fletcher on 08-03-2022 Lymphocytes Auto (Unsp spec) [#/Vol] 1.91 10*3/uL 0.83-4.51 [facility] Basophil percentageOrdered B y: Dr. Fletcher on 08-03-2022 Basophils/100 WBC (Bld) 0.8 % 0-1 [facility] Chloride [Moles/Vol] 106 mmol/L 98-107 [facility] Eosinophils/100 WBC (Bld) 4.0 % 0-5 [facility] Glucose [Mass/Vol] 186 mg/dL 74-106 [facility] Comment on above: Fasting Glucose resu lt greater than or equal to 126 mg/dL suggests DIABETES MELLITUS per A.D.A. criteria. Neutrophils (Bld) [#/Vol] 4.8 10*3/uL 2.0-7.7 [facility] Neutrophils/100 WBC (Bld) 61.5 % 47-70 [facility] Potassium [Moles/Vol] 3.8 mmol/L 3.5-5.1 [facility] Sodium [Moles/Vol] 138 mmol/L 136-145 [facility] WBC (Bld) [#/Vol] 7.7 10*3/uL 4.4-11.0 [facility] Blood erythrocytes count (nu mber/volume)Ordered By: Dr. Fletcher on 08-03-2022 RBC (Bld) [#/Vol] 4.76 10*6/uL 4.6-6.2 [facility] Blood hemoglobin measurement (mass/volume)Ordered By: Dr. Fletcher on 08-03-2022 Hemoglobin (Bld) [Mass/Vol] 14.1 g/dL 13.0-16.5 [facility] Blood lymphocytes/100 leukoc ytesOrdered By: Dr. Fletcher on 08-03-2022 Lymphocytes/100 WBC (Bld) 24.7 % 19-41 [facility] Blood monocytes/100 leukocyt esOrdered By: Dr. Fletcher on 08-03-2022 Monocytes/100 WBC (Bld) 8.7 % 0-10 [facility] Blood platelet mean volumeOr dered By: Dr. Fletcher on 08-03-2022 Platelet mean volume (Bld) [Entitic vol] 11.5 fL 6.2-12.0 [facility] Determination of erythrocyte mean corpuscular volume (MCV)Ordered By: Dr. Fletcher on 08-03-2022 MCV (RBC) [Entitic vol] 91.2 fL 80-94 [facility] Hematocrit Auto (Bld) [Volum e fraction]Ordered By: Dr. Fletcher on 08-03-2022 Hematocrit (Bld) [Volume fraction] 43.4 % 40-54 [facility] - Chemistry and C hemistry - challengeOrdered By: Dr. Fletcher on 08-03-2022 CO2 [Moles/Vol] 26.0 mmol/L 21.0-32.0 [facility] Urea nitrogen/Creatinine [Mass ratio] 14.3 mg/mg 10-20 [facility] - CoagulationOrde red By: Dr. Johnson on 08-03-2022 aPTT Coag (Bld) [Time] 67.6 s 24.1-36.2 [facility] - Hematology and Cell countsOrdered By: Dr. Fletcher on 08-03-2022 Erythrocyte distribution width (RBC) [Entitic vol] 46.6 fL 35.1-43.9 [facility] Erythrocyte distribution width (RBC) [Ratio] 13.8 % 11.6-14.6 [facility] Immature granulocytes/100 WBC (Bld) 0.300 % 0.0-0.9 [facility] Comment on above: IG% - Immature Granu locytes (promyelocytes, myelocytes and metamyelocytes) > 1% indicates that a LEFT SHIFT is Present. MCH (RBC) [Entitic mass] 29.6 pg 27.0-32.0 [facility] Nucleated RBC/100 WBC (Bld) [Ratio] 0 % 0-5 [facility] MCHC Auto (RBC) [Mass/Vol]Or dered By: Dr. Fletcher on 08-03-2022 MCHC (RBC) [Mass/Vol] 32.5 g/dL 32-36 [facility] No Panel InformationOrdered By: Dr. Fletcher on 08-03-2022 Estimated Creatinine Clearance Calc 74.37 ml/min [facility] Estimated GFR (MDRD) Amer 144 mL/min >60 [facility] Comment on above: GFR Calc Estimated GFR (MDRD) Non-Af Amer 119 mL/min >60 [facility] Comment on above: Non- GFR Calc Platelets bldOrdered By: Dr. Fletcher on 08-03-2022 Platelets (Bld) [#/Vol] 203 10*3/uL 150-450 [facility] Serum or plasma calcium tisha urement (mass/volume)Ordered By: Dr. Fletcher on 08-03-2022 Calcium [Mass/Vol] 8.9 mg/dL 8.5-10.1 [facility] Serum or plasma creatinine m easurement (mass/volume)Ordered By: Dr. Fletcher on 08-03-2022 Creatinine [Mass/Vol] 0.70 mg/dL 0.70-1.30 [facility] Comment on above: The validity of the calculated GFR & GFRAA in patients over 70 years has not been determined. Clinical correlation is essential. Serum or plasma urea nitroge n measurement (mass/volume)Ordered By: Dr. Fletcher on 08-03-2022 Urea nitrogen [Mass/Vol] 10 mg/dL 10-07 [facility] Thin prep Papanicolaou smear with manual screeningOrdered By: Dr. Fletcher on 08-03-2022 Thin prep Papanicolaou smear with manual screening 08-04 [facility] Basophil percentageOrdered B y: Dr. Cuba on 08-02-2022 Bilirubin [Mass/Vol] 0.80 mg/dL 0.20-1.00 [facility] Comment on above: For patients on eltr ombopag therapy, use of Dimension [place] TBIL is not recommended. Protein [Mass/Vol] 6.4 g/dL 6.4-8.2 [facility] EMERGENCY REPORTon 3 EMERGENCY REPORT [facility] EMERGENCY ROOM REPORT NAME ACCOUNT SEX AGE ADMIT DISCHARGE PT MED. RECORD# NUMBER DATE DATE TYPE CYRIL [id number] Black 72 08/01/22 08/01/22 [employer] [id number] ROOM: ER DATE OF : 1950 DICTATING PHYSICIAN: Mady Deluca HISTORY OF PRESENT ILLNESS: The patient came in complaining of shortness of breath and chest pain. He had a radical prostatectomy on the by Dr. Parks at [facility]. He was doing well, did not have to take any pain medication. Then he had some right-sided chest pain when he coughed. That was on Thursday, and then he was feeling short of breath and presents to the emergency department. PAST SURGICAL HISTORY: Positive for prostate surgery, hernia. SOCIAL HISTORY: He does not smoke or drink. REVIEW OF SYSTEMS: Ten systems were reviewed and negative except as mentioned above. PHYSICAL EXAMINATION: The patient is afebrile, pulse 84, respirations 18, blood pressure 181/80, pulse oximetry 95% on room air. Head is normocephalic, atraumatic. Eyes: Pupils are equal, round, and reactive to light. Extraocular muscles are intact. Nares are patent. Throat has adequate oral moisture. Uvula is midline. Neck: Supple without petechiae or rash. Heart: Without murmur. S1/S2, no S4 appreciated. Lungs: Clear to auscultation bilaterally, no rales, rhonchi or retractions. Abdomen: Soft, nontender, nondistended. Skin: Warm and dry. DIAGNOSTIC DATA: The patient had a CT, which showed multiple pulmonary emboli. He was started on heparin and will be admitted to the hospital. EMERGENCY DEPARTMENT COURSE AND TREATMENT: I did discuss this with Dr. Wright, who did not feel comfortable admitting him here since he had surgery ten days ago. I did discuss with Dr. Leigh who reluctantly agreed to take the patient, and patient will be transferred. DIAGNOSIS: Multiple pulmonary emboli, recent surgery. Dictated By: Mady Deluca DO 08/01/22 19:41 JOB #: [id number] Transcribed By: otto Page 1 of 2 [facility] Emergency Room Report JERALD NAM : 1950 08/01/22 21:28 Electronically signed by: JUNG Deluca DO 08/02/22 15:57 Page 2 of 2 [facility] Emergency Room Report Normal [facility] Laboratory - Chemistry and C hemistry - challengeOrdered By: Dr. Cuba on 08-02-2022 ALP [Catalytic activity/Vol] 67 U/L 45-117 [facility] ALT [Catalytic activity/Vol] 24 U/L 16-61 [facility] Globulin (S) [Mass/Vol] 3.5 g/dL 2.2-4.2 [facility] Serum or plasma albumin tisha urement (mass/volume)Ordered By: Dr. Cuba on 08-02-2022 Albumin [Mass/Vol] 2.9 g/dL 3.2-5.0 [facility] Serum or plasma albumin/glob ulin mass ratioOrdered By: Dr. Cuba on 08-02-2022 Albumin/Globulin [Mass ratio] 0.8 {ratio} 0.9-2.4 [facility] Thin prep Papanicolaou smear with manual screeningOrdered By: Dr. Cuba on 08-02-2022 Thin prep Papanicolaou smear with manual screening 13 U/L 15-37 [facility] APTTon 08-01-2022 aPTT Coag (Bld) [Time] 24.3 s Low 25.4 - 38.4 [facility] Comment on above: Performed By: #### 2 [id number] #### [facility],[address] [place] [address] 44093 CBC + DIFFon 08-01-2022 Baso # 0.10 x10EE3/UL Normal 0.00 - 0.10 [facility] Comment on above: Performed By: #### 2 [id number] #### [facility],[address] [place] [address] 36870 Basophils/100 WBC (Bld) 0.6 % Normal 0.0 - 2.0 [facility] Comment on above: Performed By: #### 2 [id number] #### [facility],[address] [place] [address] 21630 CBC + DIFF Normal [facility] Comment on above: Result Comment: CBC- COMPLETE BLOOD COUNT Performed By: #### 2 [id number] #### [facility],[address] [place] [address] 64639 EO # 0.20 x10EE3/UL Normal 0.00 - 0.50 [facility] Comment on above: Performed By: #### 2 [id number] #### [facility],[address] [place] [address] 03649 Eosinophils/100 WBC (Bld) 1.9 % Normal 0.0 - 7.0 [facility] Comment on above: Performed By: #### 2 [id number] #### [facility],[address] [place] [address] 94309 Erythrocyte distribution width (RBC) [Ratio] 14.1 % Normal 12.0 - 15.6 [facility] Comment on above: Performed By: #### 2 [id number] #### [facility],[address] [place] [address] 32819 Hematocrit (Bld) [Volume fraction] 43.0 % Normal 40.0 - 52.0 [facility] Comment on above: Performed By: #### 2 12003 #### [facility],[address] [place] [address] Hemoglobin (Bld) [Mass/Vol] 14.2 g/dL Normal 13.0 - 17.5 [facility] Comment on above: Performed By: #### 2 13796 #### [facility],[address] [place] [address] Lymph # 1.10 x10EE3/UL Normal 0.80 - 2.80 [facility] Comment on above: Performed By: #### 2 18374 #### [facility],[address] [place] [address] Lymphocytes/100 WBC (Bld) 11.0 % Low 20.0 - 45. 0 [facility] Comment on above: Performed By: #### 2 [id number] #### [facility],[address] [place] [address] MANUAL DIFF N/A Normal [facility] Comment on above: Performed By: #### 2 78494 #### [facility],[address] [place], [place] [id number] MCH (RBC) [Entitic mass] 30 pg Normal 27 - 33 [facility] Comment on above: Performed By: #### 2 [id number] #### [facility],[address] [place], [place] [id number] MCHC 33 X10 3 Normal 32 - 36 [facility] Comment on above: Performed By: #### 2 11938 #### [facility],[address] [place] [address] 78605 MCV (RBC) [Entitic vol] 90 fL Normal 81 - 98 [facility] Comment on above: Performed By: #### 2 [id number] #### [facility],[address] [place] [address] 21992 [place] # 0.80 x10EE3/UL Normal 0.20 - 1.00 [facility] Comment on above: Performed By: #### 2 [id number] #### [facility],[address] [place] [address] 10951 MONOS % 8.2 % Normal 0.0 - 10.0 [facility] Comment on above: Performed By: #### 2 92161 #### [facility],[address] [place] [address] 86795 Morphology Jesús (Bld) [Interp] N/A Normal [facility] Comment on above: Performed By: #### 2 [id number] #### [facility],[address] [place] [address] 40178 Neut # 7.90 x10EE3/UL High 1.50 - 7.10 [facility] Comment on above: Performed By: #### 2 [id number] #### [facility],[address] [place] [address] 44268 Neutrophils/100 WBC (Bld) 78.3 % High 46.0 - 76. 0 [facility] Comment on above: Performed By: #### 2 89728 #### [facility],[address] [place] [address] 30330 PLATELET 202 x10EE3/UL Normal 150 - 450 [facility] Comment on above: Performed By: #### 2 97939 #### [facility],[address] [place] [address] 81749 Platelet mean volume (Bld) [Entitic vol] 9.5 fL Normal 6.4 - 10.5 [facility] Comment on above: Result Comment: AUTO MATED DIFFERENTIAL Performed By: #### 2 16820 #### [facility],[address] [place] [address] 91745 RBC 4.80 x 10EE6/UL Normal 4.50 - 6.00 [facility] Comment on above: Performed By: #### 2 70046 #### [facility],[address] [place] [address] 46616 WBC 10.0 x 10EE3/UL Normal 4.5 - 10.8 [facility] Comment on above: Performed By: #### 2 14459 #### [facility],[address] [place] [address] 93130 CMP with eGFRon 08-01-2022 AGE 72 years Normal [facility] Comment on above: Performed By: #### 2 00719 #### [facility],[address] [place] [address] 23165 Albumin [Mass/Vol] 3.2 g/dL Low 3.4 - 5.0 [facility] Comment on above: Performed By: #### 2 43028 #### [facility],[address] [place], [place] [id number] Albumin/Globulin [Mass ratio] 0.9 {ratio} Normal 0.9 - 1.6 [facility] Comment on above: Performed By: #### 2 15214 #### [facility],[address] [place] [address] 82919 ALK PHOS 77 U/L Normal 46 - 116 [facility] Comment on above: Performed By: #### 2 98481 #### [facility],[address] [place] [address] 80659 ALT [Catalytic activity/Vol] 27 U/L Normal 16 - 63 [facility] Comment on above: Performed By: #### 2 70358 #### [facility],[address] [place] [address] 27603 Anion gap [Moles/Vol] 16 mmol/L Normal 10 - 20 [facility] Comment on above: Performed By: #### 2 21630 #### [facility],[address] [place] [address] 71523 AST [Catalytic activity/Vol] 17 U/L Normal 15 - 37 [facility] Comment on above: Performed By: #### 2 80499 #### [facility],[address] [place] [address] 96835 B/C RATIO 13 ratio Normal 0 - 30 [facility] Comment on above: Performed By: #### 2 67443 #### [facility],[address] [place] [address] 44669 Bilirubin [Mass/Vol] 0.8 mg/dL Normal 0.2 - 1.0 [facility] Comment on above: Performed By: #### 2 96453 #### [facility],[address] [place] [address] 68953 Calcium [Mass/Vol] 8.5 mg/dL Normal 8.5 - 10.1 [facility] Comment on above: Performed By: #### 2 33145 #### [facility],[address] [place] [address] 54911 Chloride [Moles/Vol] 100 mmol/L Normal 98 - 107 [facility] Comment on above: Performed By: #### 2 45595 #### [facility],[address] [place] [address] 88741 CMP with eGFR Normal [facility] Comment on above: Result Comment: COMP REHENSIVE METABOLIC PANEL Performed By: #### 2 39258 #### [facility],[address] [place] [address] 00694 CO2 [Moles/Vol] 24.6 mmol/L Normal 21.0 - 32.0 [facility] Comment on above: Performed By: #### 2 08807 #### [facility],[address] [place] [address] 65916 Creatinine [Mass/Vol] 0.80 mg/dL Normal 0.70 - 1.30 [facility] Comment on above: Performed By: #### 2 90141 #### [facility],[address] [place] [address] 62026 GFR/1.73 sq M.predicted among non-blacks MDRD (S/P/Bld) [Vol rate/Area] mL/min/{1.73_m2} Normal 60 - 999 [facility] Comment on above: Performed By: #### 2 54600 #### [facility],[address] [place] [address] 31908 Result Comment: ACCO RDING TO THE NATIONAL KIDNEY DISEASE EDUCATION PROGRAM(NKDE), A NORMAL eGFR IS A VALUE GREATER THAN OR EQUAL TO 60 ML/MIN/1.73 SQ METERS. CHRONIC KIDNEY DISEASE: <60mL/MIN/1.73 SQ METERS KIDNEY FAILURE: <15mL/MIN/1.73 SQ METERS THIS TEST SHOULD ONLY BE USED FOR PATIENTS 18 YEARS OF AGE AND OLDER. Globulin (S) [Mass/Vol] 3.4 g/dL Normal 1.5 - 3.8 [facility] Comment on above: Performed By: #### 2 96778 #### [facility],[address] [place] [address] 57360 Glucose [Mass/Vol] 210 mg/dL High 74 - 106 [facility] Comment on above: Performed By: #### 2 35812 #### [facility],[address] [place] [address] 47623 Potassium [Moles/Vol] 4.4 mmol/L Normal 3.5 - 5.1 [facility] Comment on above: Performed By: #### 2 79629 #### [facility],[address] [place] [address] 31593 Protein [Mass/Vol] 6.6 g/dL Normal 6.4 - 8.2 [facility] Comment on above: Performed By: #### 2 12013 #### [facility],[address] [place] [address] 24831 Sodium [Moles/Vol] 136 mmol/L Normal 136 - 145 [facility] Comment on above: Performed By: #### 2 23973 #### [facility],[address] [place] [address] Urea nitrogen [Mass/Vol] 10 mg/dL Normal 7 - 18 [facility] Comment on above: Performed By: #### 2 53131 #### [facility],[address] [place], [place] [id number] CORONAVIRUS (SARS) ANTIGEN T ESTon 08-01-2022 EXTERNAL QC DONE? YES Normal [facility] Comment on above: Performed By: #### 2 86755 #### [facility],[address] [place] [address] INTERNAL CONTROL PASS Normal [facility] Comment on above: Performed By: #### 2 37296 #### [facility],[address] [place] [address] SARS ANTIGEN Negative Normal NORMAL: NEGATIVE [facility] Comment on above: Performed By: #### 2 28016 #### [facility],[address] [place] [address] SEND TO ? YES Normal [facility] Comment on above: Result Comment: SARS -CoV-2 THIS TEST IS BEING USED UNDER THE FDA EUA PROCEDURE. THIS ASSAY HAS BEEN VALIDATED AT [facility] FOR USE WITH NASAL AND NASOPHARYNGEAL SWAB SPECIMENS. INTERPRETIVE DATA TEST RESULTS SHOULD ALWAYS BE CONSIDERED IN THE CONTEXT OF CLINICAL OBSERVATIONS AND EPIDEMIOLOGICAL DATA IN MAKING FINAL DIAGNOSIS AND PATIENT MANAGEMENT DECISIONS. PATIENT MANAGEMENT SHOULD FOLLOW CURRENT CDC GUIDELINES. THE CORNELIUS SARS ANTIGEN AUGUSTIN DOES NOT DIFFERENTIATE BETWEEN SARS-CoV & SARS-CoV-2. A POSITIVE TEST RESULT INDICATES THE PRESENCE OF SARS-CoV-2 NUCLEOCAPSID PROTEIN ANTIGEN, AND THE PATIENT IS INFECTED WITH THE VIRUS AND PRESUMED TO BE CONTAGIOUS. A NEGATIVE TEST RESULT FOR THIS TEST MEANS THAT SARS-CoV-2 NUCLEOCAPSID PROTEIN ANTIGEN WAS NOT PRESENT IN THE SPECIMEN ABOVE THE LIMIT OF DETECTION. HOWEVER, A NEGATIVE RESULT DOES NOT RULE OUT COVID-19 AND SHOULD NOT BE USED THE SOLE BASIS FOR TREATMENT OR PATIENT MANAGEMENT DECISIONS. A NEGATIVE RESULT DOES NOT EXCLUDE THE POSSIBILITY OF COVID-19. NEGATIVE RESULTS, FROM PATIENTS WITH SYMPTOM ONSET BEYOND FIVE DAYS, SHOULD BE TREATED PRESUMPTIVE AND CONFIRMATION WITH A MOLECULAR ASSAY, IF NECESSARY, FOR PATIENT MANAGEMENT, MAY BE PERFORMED. WHEN DIAGNOSTIC TESTING IS NEGATIVE, THE POSSIBLILTY OF A FALSE NEGATIVE RESULT SHOULD BE CONSIDERED IN THE CONTEXT OF A PATIENT'S RECENT EXPOSURES AND THE PRESENCE OF CLINICAL SIGNS AND SYMPTOMS CONSISTENT WITH COVID-19. THE POSSIBILITY OF A FALSE NEGATIVE RESULT SHOULD ESPECIALLY BE CONSIDERED IF THE PATIENT'S RECENT EXPOSURES OR CLINICAL PRESENTATION INDICATE THAT COVID-19 IS LIKELY, AND DIAGNOSTIC TESTS FOR OTHER CAUSES OF ILLNESS (e.g., OTHER RESPIRATORY ILLNESS) ARE NEGATIVE. IF COVID-19 IS STILL SUSPECTED BASED ON EXPOSURE HISTORY TOGETHER WITH OTHER CLINICAL FINDINGS, RE-TESTING SHOULD BE CONSIDERED BY HEALTHCARE PROVIDERS IN CONSULTATION WITH PUBLIC HEALTH AUTHORITIES. Performed By: #### 2 27907 #### [facility],[address] [place] [address] CT CHEST (PE PROTOCOL)on CT CHEST (PE PROTOCOL) [place] [id number] Patient: JERALD NAM Phone#: : 1950 Age: 72 Gender: M Pt. Type: ER Account: [id number] Location: [facility] Ordering: MADY DELUCA Exam Date: 08/01/2022/11:43 Family Phys: DANNY GARCIA Charge Code: 909971 Physician: [place] Order #: [id number] Dose#: PROCEDURE: CT CHEST WITH CONTRAST FOR PE COMPARISON: None. INDICATIONS: Chest pain. TECHNIQUE: After obtaining the patient's consent, CT images were obtained with non-ionic intravenous contrast material. Multi-planar images were created to optimize visualization of vascular anatomy with MPR/MIPS and 3D imaging. All CT scans at this facility use dose modulation, iterative reconstruction, and/or weight based dosing when appropriate to reduce radiation dose to as low as reasonably achievable. IV CONTRAST: Omnipaque 350,100ml TOTAL DOSE: 22.2 CTDIvol(mGy) FINDINGS: VASCULATURE: Pulmonary emboli in right upper, right middle and right lower lobes. Pulmonary emboli in left lower segmental pulmonary arteries. AORTA: No aortic aneurysm. LUNGS: Right middle lobe linear and ground-glass opacity distribution of a right middle lobe pulmonary embolism concerning for parenchymal infarct. Bilateral dependent atelectasis. Calcified granuloma in the left lower lobe. MICHAEL: Normal. No mass or adenopathy. MEDIASTINUM: Normal. No mass or adenopathy. CARDIAC: Normal. No enlargement, pericardial thickening, or significant calcification. PLEURA: Trace right pleural effusion CHEST WALL: Normal. No mass or axillary adenopathy. LIMITED ABDOMEN: Nonobstructing right nephrolithiasis measuring 0.3 cm. Low-attenuation lesion in the right lobe of the liver measuring 0.7 cm. Four low-attenuation lesions in the left lobe, largest measures 1.5 cm. These are incompletely characterized on this exam. Small hiatal hernia. Moderate stool burden. 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 BONES: Moderate T7 wedge compression deformity. Schmorl's nodes present at multiple levels. OTHER: Negative. Continued Report - Page 2 of 2 Patient: JERALD NAM Phone#: : 1950 Age: 72 Gender: M Pt. Type: ER Account: [id number] Location: 052 Ordering: MADY DELUCA Exam Date: 08/01/2022/11:43 Family Phys: DANNY GARCIA Charge Code: [id number] Physician: [place] Order #: [id number] Dose#: CONCLUSION: 1. Bilateral multisegmental pulmonary emboli. Findings communicated to Dr. Deluca at 1209 on 08/01/2022. 2. Possible right middle lobe pulmonary parenchymal infarct secondary to pulmonary emboli. Dictated by: Kell Britt MD on 08/01/2022 at 12:08 Approved by: Kell Britt MD on 08/01/2022 at 12:24 Normal [facility] INR in Blood by Coagulation assayOrdered By: Dr. Cuba on 08-01-2022 INR Coag (Bld) [Relative time] 1.2 {INR} [facility] - CoagulationOrde red By: Dr. Cuba on 08-01-2022 PT Coag (PPP) [Time] 15.5 s 11.7-14.9 [facility] PROTHROMBIN TIME AND INRon 0 08-01-2022 INR Coag (PPP) [Relative time] 1.2 {INR} Normal 0.8 - 1.2 [facility] Comment on above: Result Comment: T HE HEMOSIL THROMBOPLASTIN REAGENT USED IN THE PROTHROMBIN TIME TEST INTERACTS WITH THE DRUG CUBICIN (DAPTOMYCIN) AND WILL RESULT IN FALSELY ELEVATED PT / INR RESULTS INR INTERPRETATION INR INDICATION PREVENTION AND TREATMENT OF THROMBOEMBOLISM ASSOCIATED WITH: 2.0 - 3.0 ATRIAL FIBRILLATION, BIOPROSTHETIC HEART VALVES, PULMONARY EMBOLISM, VENOUS THROMBOSIS, SYSTEMIC EMBOLISM POST MYOCARDIAL INFARCTION 2.5 - 3.5 MECHANICAL HEART VALVES Performed By: #### 2 [id number] #### [facility],[address] [place] [address] PROTHROMBIN TIME AND INR Normal [facility] Comment on above: Result Comment: PROT HROMBIN TIME AND INR Performed By: #### 2 05012 #### [facility],[address] [place] [address] PT-COUMADIN 14.1 sec Normal 9.3 - 14.1 [facility] Comment on above: Performed By: #### 2 35111 #### [facility],[address] [place] [address] 98657 TROPONIN I, HIGH SENSITIVITY on 08-01-2022 HS TROPONIN <4.0 Normal 0.0 - 76.2 [facility] Comment on above: Performed By: #### 2 12150 #### [facility],[address] [place] [address] 19591 HS TROPONIN 4.2 pg/mL Normal 0.0 - 76.2 [facility] Comment on above: Performed By: #### 2 68771 ####[facility],[address] [place] [address] 39473 Basophil percentageOrdered B y: Dr. Deutsch on 07-17-2022 WBC (Bld) [#/Vol] 5.2 10*3/uL 4.4-11.0 [facility] Blood erythrocytes count (nu mber/volume)Ordered By: Dr. Deutsch on 07-17-2022 RBC (Bld) [#/Vol] 4.95 10*6/uL 4.6-6.2 [facility] Blood hemoglobin measurement (mass/volume)Ordered By: Dr. Deutsch on 07-17-2022 Hemoglobin (Bld) [Mass/Vol] 14.7 g/dL 13.0-16.5 [facility] Blood platelet mean volumeOr dered By: Dr. Deutsch on 07-17-2022 Platelet mean volume (Bld) [Entitic vol] 12.4 fL 6.2-12.0 [facility] Determination of erythrocyte mean corpuscular volume (MCV)Ordered By: Dr. Deutsch on 07-17-2022 MCV (RBC) [Entitic vol] 91.1 fL 80-94 [facility] Hematocrit Auto (Bld) [Volum e fraction]Ordered By: Dr. Deutsch on 07-17-2022 Hematocrit (Bld) [Volume fraction] 45.1 % 40-54 [facility] - Hematology and Cell countsOrdered By: Dr. Deutsch on 07-17-2022 Erythrocyte distribution width (RBC) [Entitic vol] 47.1 fL 35.1-43.9 [facility] Erythrocyte distribution width (RBC) [Ratio] 14.1 % 11.6-14.6 [facility] MCH (RBC) [Entitic mass] 29.7 pg 27.0-32.0 [facility] MCHC Auto (RBC) [Mass/Vol]Or dered By: Dr. Deutsch on 07-17-2022 MCHC (RBC) [Mass/Vol] 32.6 g/dL 32-36 [facility] Platelets bldOrdered By: Dr. Deutsch on 07-17-2022 Platelets (Bld) [#/Vol] 177 10*3/uL 150-450 [facility] Basophil percentageOrdered B y: Dr. Parks on 06-13-2022 Creatinine [Mass/Vol] 1.0 mg/dL 0.70-1.30 [facility] No Panel InformationOrdered By: Dr. Parks on 06-13-2022 Bedside Estimated GFR (eGFR) > 60.0000 mL/min >60 [facility] No Panel InformationOrdered By: Dr. Parks on 05-20-2022 Prostate Specific Antigen Total 25.00 ng/mL 0.0-4.0 [facility] Comment on above: This test was perfor med using the TPSA assay method for the[employer] chemistry system. Values obtained with differentassay methods cannot be used interchangably.When changing PSA assays in the course of monitoring apatient, additional sequential testing should be carriedout to confirm baseline values. CULTURE WOUND [MARILYN]on CULTURE WOUND [MARILYN] CULTURE WOUND [MARILYN] _WOUND CULTURE_ GO TO [employer] REPORTS AND ATTACHMENTS FOR SCANNED REPORT 05/08/22.1351.DNP.C OMPLETE Normal [facility] Comment on above: Performed By: #### 2 [id number] ####[facility],[address] [place] [address] Absolute lymphocyte countOrd ered By: Dr. Garcia on 04-17-2022 Lymphocytes Auto (Unsp spec) [#/Vol] 1.52 10*3/uL 0.83-4.51 [facility] Basophil percentageOrdered B y: Dr. Garcia on 04-17-2022 Basophils/100 WBC (Bld) 1.1 % 0-1 [facility] Bilirubin [Mass/Vol] 0.70 mg/dL 0.20-1.00 [facility] Comment on above: For patients on eltr ombopag therapy, use of Dimension [place] TBIL is not recommended. Chloride [Moles/Vol] 107 mmol/L 98-107 [facility] Cholesterol [Mass/Vol] 202 mg/dL <200 [facility] Comment on above: <200 mg/dL Desirable 200-240 mg/dL Borderline >240 mg/dL High Risk Eosinophils/100 WBC (Bld) 2.4 % 0-5 [facility] Glucose [Mass/Vol] 142 mg/dL 74-106 [facility] Comment on above: Fasting Glucose resu lt greater than or equal to 126 mg/dL suggests DIABETES MELLITUS per A.D.A. criteria. Neutrophils (Bld) [#/Vol] 2.7 10*3/uL 2.0-7.7 [facility] Neutrophils/100 WBC (Bld) 58.2 % 47-70 [facility] Potassium [Moles/Vol] 3.9 mmol/L 3.5-5.1 [facility] Protein [Mass/Vol] 7.1 g/dL 6.4-8.2 [facility] Sodium [Moles/Vol] 142 mmol/L 136-145 [facility] Triglyceride [Mass/Vol] 116 mg/dL <199 [facility] Comment on above: The drugs N-Acetylcy steine and Metamizole may falsely depress this assay.Serum Triglycerides Reference Interval Normal <150 mg/dL Borderline high 150 - 199 mg/dL High 200 - 499 mg/dL Very High > or = 500 mg/dL WBC (Bld) [#/Vol] 4.7 10*3/uL 4.4-11.0 [facility] Blood erythrocytes count (nu mber/volume)Ordered By: Dr. Garcia on 04-17-2022 RBC (Bld) [#/Vol] 5.17 10*6/uL 4.6-6.2 [facility] Blood hemoglobin measurement (mass/volume)Ordered By: Dr. Garcia on 04-17-2022 Hemoglobin (Bld) [Mass/Vol] 15.6 g/dL 13.0-16.5 [facility] Blood lymphocytes/100 leukoc ytesOrdered By: Dr. Garcia on 04-17-2022 Lymphocytes/100 WBC (Bld) 32.5 % 19-41 [facility] Blood monocytes/100 leukocyt esOrdered By: Dr. Garcia on 04-17-2022 Monocytes/100 WBC (Bld) 5.6 % 0-10 [facility] Blood platelet mean volumeOr dered By: Dr. Garcia on 04-17-2022 Platelet mean volume (Bld) [Entitic vol] 11.9 fL 6.2-12.0 [facility] Determination of erythrocyte mean corpuscular volume (MCV)Ordered By: Dr. Garcia on 04-17-2022 MCV (RBC) [Entitic vol] 91.5 fL 80-94 [facility] Hematocrit Auto (Bld) [Volum e fraction]Ordered By: Dr. Garcia on 04-17-2022 Hematocrit (Bld) [Volume fraction] 47.3 % 40-54 [facility] - Chemistry and C hemistry - challengeOrdered By: Dr. Garcia on 04-17-2022 ALP [Catalytic activity/Vol] 57 U/L 45-117 [facility] ALT [Catalytic activity/Vol] 32 U/L 16-61 [facility] CO2 [Moles/Vol] 26.0 mmol/L 21.0-32.0 [facility] Globulin (S) [Mass/Vol] 3.4 g/dL 2.2-4.2 [facility] Urea nitrogen/Creatinine [Mass ratio] 12.3 mg/mg 10-20 [facility] - Hematology and Cell countsOrdered By: Dr. Garcia on 04-17-2022 Erythrocyte distribution width (RBC) [Entitic vol] 46.5 fL 35.1-43.9 [facility] Erythrocyte distribution width (RBC) [Ratio] 13.7 % 11.6-14.6 [facility] Immature granulocytes/100 WBC (Bld) 0.200 % 0.0-0.9 [facility] Comment on above: IG% - Immature Granu locytes (promyelocytes, myelocytes and metamyelocytes) > 1% indicates that a LEFT SHIFT is Present. MCH (RBC) [Entitic mass] 30.2 pg 27.0-32.0 [facility] Nucleated RBC/100 WBC (Bld) [Ratio] 0 % 0-5 [facility] MCHC Auto (RBC) [Mass/Vol]Or dered By: Dr. Garcia on 04-17-2022 MCHC (RBC) [Mass/Vol] 33.0 g/dL 32-36 [facility] No Panel InformationOrdered By: Dr. Garcia on 04-17-2022 Estimated GFR (MDRD) Amer 108 mL/min >60 [facility] Comment on above: GFR Calc Estimated GFR (MDRD) Non-Af Amer 89 mL/min >60 [facility] Comment on above: Non- GFR Calc Prostate Specific Antigen Screen 25.00 ng/mL 0.00-4.00 [facility] Comment on above: This test was perfor med using the TPSA assay method for the[employer] chemistry system. Values obtained with differentassay methods cannot be used interchangably.When changing PSA assays in the course of monitoring apatient, additional sequential testing should be carriedout to confirm baseline values. Urine Microalbumin/Creatinine Ratio 10.3 mg/g CRE <30 [facility] Platelets bldOrdered By: Dr. Garcia on 04-17-2022 Platelets (Bld) [#/Vol] 191 10*3/uL 150-450 [facility] Serum or plasma albumin tisha urement (mass/volume)Ordered By: Dr. Garcia on 04-17-2022 Albumin [Mass/Vol] 3.7 g/dL 3.2-5.0 [facility] Serum or plasma albumin/glob ulin mass ratioOrdered By: Dr. Garcia on 04-17-2022 Albumin/Globulin [Mass ratio] 1.1 {ratio} 0.9-2.4 [facility] Serum or plasma calcium tisha urement (mass/volume)Ordered By: Dr. Garcia on 04-17-2022 Calcium [Mass/Vol] 8.3 mg/dL 8.5-10.1 [facility] Serum or plasma cholesterol in HDL measurement (mass/volume)Ordered By: Dr. Garcia on 04-17-2022 Cholesterol in HDL [Mass/Vol] 49 mg/dL >40 [facility] Comment on above: The drugs N-Acetylcy steine and Metamizole may falsely depress this assay. Reference Range HDL <40 mg/dL Low HDL Cholesterol HDL >or= 60 mg/dL High HDL Cholesterol Serum or plasma cholesterol in VLDL measurement (mass/volume)Ordered By: Dr. Garcia on 04-17-2022 Cholesterol in VLDL [Mass/Vol] 23 mg/dL 5-40 [facility] Serum or plasma creatinine m easurement (mass/volume)Ordered By: Dr. Garcia on 04-17-2022 Creatinine [Mass/Vol] 0.90 mg/dL 0.70-1.30 [facility] Comment on above: The validity of the calculated GFR & GFRAA in patients over 70 years has not been determined. Clinical correlation is essential. Serum or plasma low density lipoprotein (LDL) cholesterol measurement (mass/volume)Ordered By: Dr. Garcia on 04-17-2022 Cholesterol in LDL [Mass/Vol] 130 mg/dL 0-130 [facility] Serum or plasma urea nitroge n measurement (mass/volume)Ordered By: Dr. Garcia on 04-17-2022 Urea nitrogen [Mass/Vol] 11 mg/dL 7-18 [facility] Thin prep Papanicolaou smear with manual screeningOrdered By: Dr. Garcia on 04-17-2022 Thin prep Papanicolaou smear with manual screening 25 U/L 15-37 [facility] Thin prep Papanicolaou smear with manual screening 9 5-15 [facility] Thin prep Papanicolaou smear with manual screening 13.4 mg/L NO RANGE EST. [facility] Urine creatinine measurement (mass/volume)Ordered By: Dr. Garcia on 04-17-2022 Creatinine (U) [Mass/Vol] 130.00 mg/dL NO RANGE EST. [facility] Whole blood hemoglobin A1c/t otal hemoglobin ratio (mass fraction)Ordered By: Dr. Garcia on 04-17-2022 HbA1c (Bld) [Mass fraction] 6.8 % 3.8-5.6 [facility] Comment on above: Normal < 5.7 % Predi abetic 5.7 - 6.4 % Diabetic >or= 6.5 % Please note range changes. EMERGENCY REPORTon 3 EMERGENCY REPORT [facility] EMERGENCY ROOM REPORT NAME ACCOUNT SEX AGE ADMIT DISCHARGE PT MED. RECORD# NUMBER DATE DATE TYPE CYRIL [id number] Black 71 03/28/22 03/28/22 [employer] [id number] ROOM: ER DATE OF : 1950 DICTATING PHYSICIAN: Charles Gudino CHIEF COMPLAINT: Redness, swelling and pain to the left foot area. HISTORY OF PRESENT ILLNESS: The patient states that about 10 days ago he trimmed his toenail and noticed shortly after that a little bit of redness and soreness to the lateral aspect of the nail. Since then, he has noticed some redness and swelling develop to the medial aspect of the foot and the sole of the foot. He states that it felt like he had a pebble in his shoe and noticed that he had developed a blister to the sole of his foot at the area of the first MTP. That area has become red and sore and swollen. The blister has broken open though is not significantly draining. He has not had any fever or chills. No midfoot, ankle or leg pain. No nausea or vomiting. He did injure that foot several months ago when he dropped something on it, but that actually hit more to the lateral aspect of the foot at the fourth toe area but still remains a little bit sore. He does not have any redness in that area. PAST MEDICAL HISTORY: Negative for significant medical problems. PAST SURGICAL HISTORY: He has had no previous surgeries. MEDICATIONS: He takes no medications. SOCIAL HISTORY: He lives at home. He is and accompanied here with his . He does not smoke. He drinks alcohol occasionally. PHYSICAL EXAMINATION: GENERAL: This is a 71-year-old, well-nourished, developed, pleasant male who is alert and appropriate. He does not appear toxic or in any acute distress. VITAL SIGNS: He did have an elevated blood pressure as noted. EXTREMITIES: Examination is generally focused to the lower extremity, specifically the left foot area. The left great toe generally appears unremarkable. The nail is not reddened, and there is no surrounding redness along the eponychial area. He does have some redness to the medial aspect of the foot at the base of the great toe and the sole of the foot mainly at the MTP area. There is a superficial blister that is open without any significant drainage. The blister is about 1-1.5 cm in diameter. That area is quite red, warm, and tender surrounding that area. The area is about silver dollar sized. There does not seem to be significant redness or swelling extending to the dorsum of the foot or ankle. There is no surrounding tenderness. The fourth toe is minimally Page 1 of 2 JERALD NAM Emergency Room Report AYSEJERALD Campos Black : 1950 swollen but not red or ecchymotic. No open areas to that area. DIAGNOSTIC DATA: CBC was normal. CRP was minimally elevated. EMERGENCY DEPARTMENT COURSE AND TREATMENT: I did debride some of the loose skin from the bulla at the base of the foot. I did get a culture from that superficial ulcer. CBC and CRP were obtained. He was given 2 grams of Rocephin IV, and I started him on Bactrim DS orally. Neosporin and a dressing were placed to the area. Wound care instructions were given. He is to limit weightbearing, keeping the foot elevated over the next couple of days. Return if he develops a fever, chills, vomiting, etc. Otherwise, follow up with family physician in the next 2 to 4 days for a recheck. DIAGNOSIS: Left foot cellulitis. Dictated By: Charles Gudino MD 03/28/22 10:10 JOB #: [id number] Transcribed By: danisha 03/29/22 12:27 Electronically signed by: JUNG Gudino M.D. 04/03/22 08:02 Page 2 of 2 JERALD NAM Emergency Room Report Normal [facility] C-REACTIVE PROTEINon 023 CRP 1.30 mg/dl High 0.00 - 0.90 [facility] Comment on above: Performed By: #### 2 81639 #### [facility],[address] [place] [address] 48368 CBC + DIFFon 03-28-2022 Baso # 0.10 x10EE3/UL Normal 0.00 - 0.10 [facility] Comment on above: Performed By: #### 2 71493 #### [facility],[address] [place] [address] 92666 Basophils/100 WBC (Bld) 1.0 % Normal 0.0 - 2.0 [facility] Comment on above: Performed By: #### 2 46029 #### [facility],[address] [place] [address] 52378 CBC + DIFF Normal [facility] Comment on above: Result Comment: CBC- COMPLETE BLOOD COUNT Performed By: #### 2 24920 #### [facility],[address] [place] [address] 07159 EO # 0.20 x10EE3/UL Normal 0.00 - 0.50 [facility] Comment on above: Performed By: #### 2 24065 #### [facility],[address] [place] [address] 67383 Eosinophils/100 WBC (Bld) 3.0 % Normal 0.0 - 7.0 [facility] Comment on above: Performed By: #### 2 84059 #### [facility],[address] [place] [address] Erythrocyte distribution width (RBC) [Ratio] 14.2 % Normal 12.0 - 15.6 [facility] Comment on above: Performed By: #### 2 85210 #### [facility],[address] [place] [address] Hematocrit (Bld) [Volume fraction] 45.9 % Normal 40.0 - 52.0 [facility] Comment on above: Performed By: #### 2 56311 #### [place] [address] Hemoglobin (Bld) [Mass/Vol] 15.4 g/dL Normal 13.0 - 17.5 [facility] Comment on above: Performed By: #### 2 86202 #### [place] [address] Lymph # 1.40 x10EE3/UL Normal 0.80 - 2.80 [facility] Comment on above: Performed By: #### 2 54436 #### [place] [address] Lymphocytes/100 WBC (Bld) 24.8 % Normal 20.0 - 45. 0 [facility] Comment on above: Performed By: #### 2 38411 #### [place] [id number] MANUAL DIFF N/A Normal [facility] Comment on above: Performed By: #### 2 15411 #### [place] [address] MCH (RBC) [Entitic mass] 30 pg Normal 27 - 33 [facility] Comment on above: Performed By: #### 2 84350 #### [place] [address] MCHC 34 X10 3 Normal 32 - 36 [facility] Comment on above: Performed By: #### 2 02831 #### [facility],[address] [place] [address] 05207 MCV (RBC) [Entitic vol] 89 fL Normal 81 - 98 [facility] Comment on above: Performed By: #### 2 27967 #### [facility],[address] [place] [address] 29039 [place] # 0.40 x10EE3/UL Normal 0.20 - 1.00 [facility] Comment on above: Performed By: #### 2 20201 #### [facility],[address] [place] [address] 64290 MONOS % 7.1 % Normal 0.0 - 10.0 [facility] Comment on above: Performed By: #### 2 10294 #### [facility],[address] [place] [address] 17129 Morphology Jesús (Bld) [Interp] N/A Normal [facility] Comment on above: Result Comment: {CD] Performed By: #### 2 44428 #### [facility],[address] [place] [address] 00866 Neut # 3.50 x10EE3/UL Normal 1.50 - 7.10 [facility] Comment on above: Performed By: #### 2 11848 #### [facility],[address] [place] [address] 18850 Neutrophils/100 WBC (Bld) 64.1 % Normal 46.0 - 76. 0 [facility] Comment on above: Performed By: #### 2 02633 #### [facility],[address] [place] [address] 92871 PLATELET 166 x10EE3/UL Normal 150 - 450 [facility] Comment on above: Performed By: #### 2 74778 #### [facility],[address] [place] [address] 94276 Platelet mean volume (Bld) [Entitic vol] 9.7 fL Normal 6.4 - 10.5 [facility] Comment on above: Result Comment: AUTO MATED DIFFERENTIAL Performed By: #### 2 60511 #### [facility],[address] [place] [address] 73346 RBC 5.18 x 10EE6/UL Normal 4.50 - 6.00 [facility] Comment on above: Performed By: #### 2 21253 #### [facility],[address] [place] [address] 51156 WBC 5.5 x 10EE3/UL Normal 4.5 - 10.8 [facility] Comment on above: Performed By: #### 2 81265 #### [facility],[address] [place] [address] 40756 EMERGENCY REPORTon 2 EMERGENCY REPORT [facility] EMERGENCY ROOM REPORT NAME ACCOUNT SEX AGE ADMIT DISCHARGE PT MED. RECORD# NUMBER DATE DATE TYPE CYRIL [id number] Black 71 11/11/21 11/11/21 3 JERALD Cleaning [id number] ROOM: ER DATE OF : 1950 DICTATING PHYSICIAN: Brandt Chaves HISTORY OF PRESENT ILLNESS: The patient is a 71-year-old gentleman who is right-handed and has no history of cardiac disease. He is not a diabetic. He presents himself to the emergency room for evaluation of a cat bite which was sustained at the proximal aspect of the index finger on the left hand. This was at 1100 hours this morning. He states it was a rather sickly cat, and he was trying to take care of it. He was moving the cat, and the cat bit him. He states otherwise the cat appears to have been acting normally. The cat was taken to the vet. It was sacrificed by the vet, and that the family knows of there was no rabies testing done. However, the family, that is the patient's Sania and the patient himself, does not think the cat had rabies. He states he has some swelling, and it is a little sore to move. He has taken ibuprofen at home, which helped a minimal amount, but he is concerned he has some increased redness to the skin. He states his last tetanus was remote. He states he has not seen his family doctor, Dr. Garcia. He has no history of heart or valvular disorder, and no history of synthetic joints. He is ambulatory to the emergency room. He gives his own history. He is seen in room #4 in the presence of his . PHYSICAL EXAMINATION: VITAL SIGNS: 97.1 temperature, 100 pulse, 142/92 blood pressure, 95% saturation on room air. HEENT: Good eye contact, pleasant individual. Head is normocephalic. NECK: Neck is easily supple. LUNGS: Clear. There is no expiratory wheeze, rales, or paradoxical chest motions. HEART: Heart rate and rhythm is regular without a murmur. ABDOMEN: Abdomen is soft without any hepatosplenomegaly. EXTREMITIES: Extremities are non-swollen and nontender except on the left hand where 2 bite kimbrough are noted over the proximal index finger that do not appear to be draining any significant fluid. There is some erythema that ends over near the second MCP joint, and the erythema is about 7 cm long and about 11 cm wide. The patient has easy range of motion of his finger, that is I do not suspect a tenosynovitis. His sensation distally is present. To close his hand in a fisted manner is not very comfortable to him because of the swelling on the dorsum of the hand. There is no purulent drainage seen. There is no ecchymosis seen or petechia seen. EMERGENCY DEPARTMENT COURSE AND TREATMENT/PLAN/DISP OSITION: The decision was made to give him some IV antibiotics, give him a tetanus, and have him followup with Dr. Garcia, his family doctor, or here if worse. Accordingly, the patient was otherwise in no distress. He was given 3.375 of Zosyn IV and then placed Page 1 of 2 JERALD NAM Emergency Room Report JERALD NAM : 1950 on Augmentin at home 500/125 t.i.d. for 5 days. He is to keep this elevated, and the area was marked. He was told if this gets a lot worse to return to the emergency room or see Dr. Garcia. A cat bite report was completed. From the sounds of things, I would say that this was not a bite from a rabid animal. DIAGNOSES: 1. Cat bite. 2. Local cellulitis. Dictated By: Brandt Chaves DO 11/11/21 23:13 JOB #: [id number] Transcribed By: am 11/12/21 06:03 Electronically signed by: E-SIGN BRANDT ECHO ALVARENGA 11/13/21 18:42 Page 2 of 2 JERALD NAM Emergency Room Report Normal [facility] Vital Signs Date Time Vital Sign Value Performing Clinician Faci lity 12-04-2022 11:090400 Body height 182.[address] Danny Garcia Work Phone: [facility] 12-04-2022 11:09-0400 Body mass index (BMI) [Ratio] 25.6 kg/m2 Dr. Danny Garcia Work Phone: [facility] 12-04-2022 11:09-0400 Body temperature 98.2 [degF] Dr. Danny Garcia Work Phone: [facility] 12-04-2022 11:09-0400 Body weight 85.[address] Danny Garcia Work Phone: [facility] 12-04-2022 11:09-0400 Diastolic blood pressure 81 mm[Hg] Dr. Danny Garcia Work Phone: [facility] 12-04-2022 11:09-0400 Heart rate 62 /min Dr. Danny Garcia Work Phone: [facility] 12-04-2022 11:09-0400 Respiratory rate 16 /min Dr. Danny Garcia Work Phone: [facility] 12-04-2022 11:09-0400 SaO2% (BldA) [Mass fraction] 96 % Dr. Danny Garcia Work Phone: [facility] 12-04-2022 11:09-0400 Systolic blood pressure 168 mm[Hg] Dr. Danny Garcia Work Phone: [facility] 11-21-2022 10:04-0400 Body mass index (BMI) [Ratio] 25.7 kg/m2 Dr. Danny Garcia Work Phone: [facility] 11-21-2022 10:04-0400 Body temperature 98 [degF] Dr. Danny Garcia Work Phone: [facility] 11-21-2022 10:04-0400 Body weight 85.[address] Danny Garcia Work Phone: [facility] 11-21-2022 10:04-0400 Diastolic blood pressure 90 mm[Hg] Dr. Danny Garcia Work Phone: [facility] 11-21-2022 10:04-0400 Heart rate 64 /min Dr. Danny Garcia Work Phone: [facility] 11-21-2022 10:04-0400 Respiratory rate 16 /min Dr. Danny Garcia Work Phone: [facility] 11-21-2022 10:04-0400 SaO2% (BldA) [Mass fraction] 97 % Dr. Danny Garcia Work Phone: [facility] 11-21-2022 10:04-0400 Systolic blood pressure 162 mm[Hg] Dr. Danny Garcia Work Phone: [facility] 08-03-2022 10:28-0400 SaO2% (BldA) [Mass fraction] 92 % Dr. Danny Garcia Work Phone: [facility] 08-03-2022 10:00-0400 Body temperature 97.7 [degF] Dr. Danny Garcia Work Phone: [facility] 08-03-2022 10:00-0400 Diastolic blood pressure 78 mm[Hg] Dr. Danny Garcia Work Phone: [facility] 08-03-2022 10:00-0400 Heart rate 67 /min Dr. Danny Garcia Work Phone: [facility] 08-03-2022 10:00-0400 Respiratory rate 16 /min Dr. Danny Garcia Work Phone: [facility] 08-03-2022 10:00-0400 Systolic blood pressure 136 mm[Hg] Dr. Danny Garcia Work Phone: [facility] 08-01-2022 16:51-0400 Body height 182.[address] Danny Garcia Work Phone: [facility] 08-01-2022 16:51-0400 Body mass index (BMI) [Ratio] 25.2 kg/m2 Dr. Danny Garcia Work Phone: [facility] 08-01-2022 16:51-0400 Body weight 84.[address] Danny Garcia Work Phone: [facility] 07-24-2022 08:30-0400 Body temperature 98.1 [degF] Dr. Danny Garcia Work Phone: [facility] 07-24-2022 08:30-0400 Diastolic blood pressure 66 mm[Hg] Dr. Danny Garcia Work Phone: [facility] 07-24-2022 08:30-0400 Heart rate 60 /min Dr. Danny Garcia Work Phone: [facility] 07-24-2022 08:30-0400 Respiratory rate 16 /min Dr. Danny Garcia Work Phone: [facility] 07-24-2022 08:30-0400 SaO2% (BldA) [Mass fraction] 99 % Dr. Danny Garcia Work Phone: [facility] 07-24-2022 08:30-0400 Systolic blood pressure 120 mm[Hg] Dr. Danny Garcia Work Phone: [facility] 07-23-2022 17:48-0400 Body height 182.[address] Danny Garcia Work Phone: [facility] 07-23-2022 17:48-0400 Body mass index (BMI) [Ratio] 24.5 kg/m2 Dr. Danny Garcia Work Phone: [facility] 07-23-2022 17:48-0400 Body weight [address] Danny Garcia Work Phone: [facility] Encounters Encounter Date Encounter Type Care Provider Facility Start: 06-15-2024 End: 06-15-[address] Danny Garcia DO Work Phone: [facility] Work Phone: Start: 06-15-2024 End: 06-15-[address] Danny Garcia DO -LaboratoryT[facility] Start: 06-15-2024 End: 06-15-2024 ambulatory [facility] Facility:[facility] Start: 03-08-2024 End: 03-08-[address] Ruben Parks MD -Laboratory Work Phone: Start: 03-08-2024 End: 03-08-2024 ambulatory [facility] Facility:[facility] Start: 09-07-2023 End: 09-07-2023 ambulatory [facility] Facility:[facility] Start: 06-04-2023 End: 06-04-2023 ambulatory [facility] Work Phone: Start: 06-04-2023 End: 06-04-2023 Patient encounter procedure [facility]-Laboratory Work Phone: Start: 04-27-2023 End: 04-27-2023 ambulatory [facility] Work Phone: Start: 04-27-2023 End: 04-27-2023 Patient encounter procedure [facility]-LaboratoryTasha [facility] Start: 03-02-2023 End: 03-02-[address] Danny Garcia Work Phone: [facility] Work Phone: Start: 03-02-2023 End: 03-02-[address] [facility] Start: 12-04-2022 End: 12-04-[address] Danny Garcia Work Phone: [facility] Work Phone: Start: 12-02-[address] Danny Garcia Work Phone: [facility] Start: 12-02-2022 End: 12-02-[address] Danny Garcia Work Phone: [facility] Work Phone: Start: 12-02-2022 End: 12-02-[address] Danny Garcia Work Phone: [facility] Work Phone: Start: 11-21-2022 End: 11-21-[address] Danny Garcia Work Phone: [facility] Work Phone: Start: 11-13-2022 End: 11-13-[address] Danny Garcia Work Phone: [facility] Work Phone: Start: 11-13-2022 End: 11-13-[address] [facility] Start: 08-25-2022 End: 08-25-[address] [facility] Start: 08-03-2022 Non-patient / Non-visit Dr. Cathy Garcia Work Phone: [facility] Start: 08-02-2022 Non-patient / Non-visit Dr. Cathy Garcia Work Phone: [facility] Start: 08-01-2022 Non-patient / Non-visit Dr. Cathy Garcia Work Phone: [facility] Start: 08-01-2022 End: 08-03-2022 Evaluation and management of inpatient Dr. Danny Garcia Work Phone: [facility]-Progressive Care Unit Start: 08-01-2022 End: 08-01-2022 Emergency department patient visit MADY Valdez YOSI [facility] Start: 07-23-2022 End: 07-24-2022 Evaluation and management of inpatient Dr. Danny Garcia Work Phone: [facility]-Medical Surgical 3 Start: 07-23-2022 End: 07-24-[address] Danny Garcia Work Phone: [facility] Work Phone: Start: 07-17-2022 End: 07-17-2022 Non-patient / Non-visit Dr. Danny Garcia Work Phone: [facility] Start: 06-26-2022 End: 06-26-2022 Patient encounter procedure [facility]-Cat Scan, [facility] Start: 06-20-2022 End: 06-20-2022 ambulatory [facility] Work Phone: Start: 06-20-2022 End: 06-20-2022 Patient encounter procedure [facility]-Nuclear Medicine, [facility] Start: 06-13-2022 End: 06-13-2022 ambulatory [facility] Work Phone: Start: 06-13-2022 End: 06-13-2022 Patient encounter procedure [facility]-MRI - [facility] Start: 06-05-2022 End: 06-05-2022 ambulatory [facility] Work Phone: Start: 06-05-2022 End: 06-05-2022 Patient encounter procedure [facility]-Laboratory, Specimen Start: 05-20-2022 End: 05-20-2022 ambulatory [facility] Work Phone: Start: 05-20-2022 End: 05-20-2022 Patient encounter procedure [facility]-Laboratory Start: 05-05-2022 End: 05-05-2022 ambulatory MARIA E DPM [facility] Start: 04-17-2022 End: 04-17-2022 ambulatory [facility] Work Phone: Start: 04-17-2022 End: 04-17-2022 Patient encounter procedure [facility]-Laboratory, [facility] Start: 03-28-2022 End: 03-28-2022 Emergency department patient visit CHARLES Carmona GUDINO [facility] Start: 11-11-2021 End: 11-12-2021 Emergency department patient visit BRANDT DO CHAVES [facility] Procedures Date Procedure Procedure Detail Performing Clinician Start: 12-02-2022 Positron emission tomography with computed tomography Dr. Danny Garcia Work Phone: Start: 12-02-2022 MRI of pelvis with contrast Dr. Danny Garcia Work Phone: Start: 07-23-2022 Lap Robotic Prostate ctomy (Not Applicable) Dr. Danny Garcia Work Phone: Start: 06-26-2022 Computed tomography of abdomen and pelvis with intravenous contrast Start: 06-20-2022 Radionuclide whole b ginna bone study Start: 06-13-2022 MRI of pelvis with contrast Plan of Treatment Date Care Activity Detail Author Start: 08-09-2022 Blood chemistry [facility] Start: 08-08-2022 Blood chemistry [facility] Start: 08-07-2022 Blood chemistry [facility] Start: 08-06-2022 Blood chemistry [facility] Start: 08-05-2022 Blood chemistry [facility] Start: 08-04-2022 Blood chemistry [facility] Start: 08-04-2022 Partial thromboplastin time, activated [facility] Start: 08-03-2022 Patient discharge [facility] Start: 08-01-2022 End: 08-02-2022 [facility] Start: 08-01-2022 Provision of activity privileges [facility] Start: 08-01-2022 Admission procedure [facility] Start: 08-01-2022 Assessment of risk of venous thromboembolism [facility] Start: 08-01-2022 Insertion of catheter into peripheral vein [facility] Start: 08-01-2022 Providing care according to standard [facility] Start: 08-01-2022 Following clinical pathway protocol [facility] Start: 07-24-2022 Patient discharge [facility] Start: 07-23-2022 Following clinical pathway protocol [facility] Start: 07-23-2022 Anes xtrprtl lwr abd w/urinary tract rad prstect ANESTH REMOVAL OF PROSTATE [facility] Start: 07-23-2022 Laps prostect retropubic rad w/nrv sparing robot LAPS SURG [id number] RPBIC RAD [facility] Start: 07-23-2022 Litholapaxy comp/lg > 2.5 cm REMOVE BLADDER STONE [facility] Start: 07-23-2022 Admission procedure [facility] Start: 07-23-2022 Deep breathing and coughing exercises [facility] Start: 07-23-2022 Following clinical pathway protocol [facility] Start: 07-23-2022 Incentive spirometry [facility] Start: 07-23-2022 Measuring intake and output [facility] Start: 07-23-2022 Oxygen therapy [facility] Start: 07-23-2022 Provision of activity privileges [facility] Start: 07-23-2022 [address] patient vital signs [facility] Start: 07-23-2022 Vital signs measurements [facility] Start: 07-23-2022 [facility] Electrocardiographic procedure [facility] Patient Education [facility] Work Phone: Patient referral [facility] Work Phone: Positron emission to [facility] with computed tomography [facility] Payers Date Payer Category Payer Medicare [id number] 2023 Self-pay [id number] 2016 Medicare [employer] [id number] 1950 Unknown [id number] 1950 Unknown [id number] 1950 Unknown [id number] 1950 Unknown [id number] Unknown [id number] Unknown [id number] Unknown [id number] Social History Date Type Detail [facility] Work Phone: Start: 1950 Sex Assigned At Male [facility] Start: 07-09-2022 End: 11-17-2022 Tobacco smoking status NHIS Unknown if ever smoked [facility] Start: 11-17-2022 [facility] Start: 06-20-2024 Sex Male (finding) [facility] Medical Equipment Procedure Code Equipment Code Equipment Origin al Text Equipment Identifier Dates Collagen haemost atic agent, non-antimicrobial [id number] FDA Start: 07-23-2022 Ligation clip, synthetic polymer, non-bioabsorbable ()[id number] FDA Start: 07-23-2022 Ligation clip, synthetic polymer, non-bioabsorbable [id number] FDA Start: 07-23-2022 Goals Date Patient Goal Desired Activity /State Functional Status Date Assessment Result Facility 08-03-2022 Functional status Activity Abili ty Standby Assist [facility] Work Phone: 08-03-2022 Functional status Ambulates [facility] Work Phone: 07-24-2022 Functional status Bedrest [facility] Work Phone: Mental Status Date Assessment Result Facility 08-03-2022 Cognitive function Voice/Name [facility] Work Phone: 07-24-2022 Cognitive function Level Of Cons ciousness Awake;Alert;Appropriate;Follow s Commands [facility] Work Phone: 07-23-2022 Cognitive function Voice/Name [facility] Work Phone: Clinical Notes 07-17-2022 to 08-03-2022 Note Date & Type Note Facility 08-03-2022 Discharge summary Note Date/Time August 03, 2022 12:00pm [facility] Medical Records Department [address] [place] [address] Discharge Summary 08/03/22 1200 MR#: [id number] Acct: [id number] Name: JERALD NAM Rep #:[id number] : 1950 72 From: Tracy Fletcher MD PCP: Dr. Danny Garcia DO Status:DIS IN Location: [place] [id number] Providers Date of Admission: 08/01/22 Date of Discharge: 08/03/22 Primary Care Physician: Dr. 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 Parks Medications at Discharge Home Medications Magnesium Bys Glycinate 1 pkg PO/SL DAILY 07/09/22 alpha lipoic acid 300 mg capsule 300 mg PO DAILY 07/09/22 cholecalciferol (vitamin D3) 125 mcg (5,000 unit) tablet (Vitamin D3) 125 mcg PODAILY 07/09/22 vitamin K2 100 mcg capsule 100 mcg PO DAILY 07/09/22 zinc 50 mg tablet 15 mg PO DAILY 07/09/22 docusate sodium 100 mg capsule (Colace) 100 mg PO BID #20 caps 07/23/22 oxycodone-acetaminophen 5 mg-325 mg tablet (Endocet) 1 tab PO Q6H PRN pain 7 days #14 tabs 07/23/22 omega-3 fatty acids 1 cap PO DAILY 08/01/22 apixaban 5 mg (74 tabs) tablets in a dose pack (Eliquis DVT-PE Treat 30D Start) See Rx Instructions .Route .COMPLEX #74 tabs 08/03/22 Hospital Course Summary of Care Provided Minutes Spent on Discharge: 32 Hospital Course: JERALD NAM, is a 72 M with a history of prostate cancer who 10 days ago underwent robotic assisted laparoscopic prostatectomy. Presented w/ 2 day s of pleuritic CP and cough, was found to have bilat PE and right middle lobe infarction in [facility] ED on CTA and given high likelihood of hematuria with anticoagulation started with no urology service transfer is requested. He was brought to our facility and had no hypoxia at rest on room air. He was continued on a heparin drip and evaluated by his urologist, hemoglobin remained stable and no significant bleeding. Mohr catheter remainedin place and he was ambulated to assess for any respiratory distress or O2 need and he did not need any. On day of discharge still reports it sometimes difficult to take a large breath and is not coughing is no other complaints. Considered obtaining echo however given his lack of respiratory distress, no hypoxia or other signs or symptoms concerning for increased strain on the heart candefer to outpatient physician to perform echocardiogram if desired to assess right heart though likely not necessary on this particular clinical scenario. Discharge instructions as followed: -Please follow-up with Dr. aPrks upon discharge.? Please call their office to schedule hospital follow-up appointment upon discharge. -You are found to have blood clots in your lungs and you will be discharged on ablood thinner, Eliquis, You will take 10 mg twice daily for 7 days followed by 5mg twice daily thereafter -If you have any bleeding into your Mohr catheter advised that you call Dr. Farrar's office or proceed to the emergency department -Would recommend lab work (CBC) to check your hemoglobin/blood counts in 2 to 3 days through your primary care physician's office.? Please call their office upon discharge to obtain order for lab work. -Advised you practice taking deep full breaths as much as possible as this will help recover your lungs faster -Please call your primary care provider's office upon discharge to schedule a hospital follow up within 1 week. -For any concerning signs or symptoms please call 911 or proceed to the nearest emergency department Physical Exam Narrative General: Alert, oriented, no apparent distress HEENT: Atraumatic, normocephalic Eyes: Anicteric, normal conjunctiva, extraocular movements grossly intact Neck: Supple Respiratory: No crackles or wheezes, normal respiratory effort Cardiovascular: Regular rate and rhythm GI: Soft, nontender, nondistended Extremities: No edema Musculoskeletal: Moving all extremities Neuro: No overt focal neurological deficits Skin: No rashes appreciated Psych: Cooperative Weight / BMI Weight Weight: 84.504 kg Body Mass Index (BMI) 25.2 ABG / Lab / Microbiology Data Result Diagrams: 08/03/22 04:35 08/03/22 04:35 Laboratory: Laboratory Results - last 24 hr 08/02/22 15:55: APTT 63.6 H 08/02/22 21:55: APTT 72.7 H 08/03/22 04:35: WBC 7.7, RBC 4.76, Hgb 14.1, Hct 43.4, MCV 91.2, MCH 29.6, MCHC 32.5, RDW Std Deviation 46.6 H, RDW Coeff of Shahla 13.8, Plt Count 203, MPV 11.5, Immature Gran % (Auto) 0.300, Neut % (Auto) 61.5, Lymph % (Auto) 24.7, [place] % (Auto) 8.7, Eos % (Auto) 4.0, Baso % (Auto) 0.8, Absolute Neuts (auto) 4.8, Absolute Lymphs (auto) 1.91, Nucleated RBC % 0 08/03/22 04:35: Sodium 138, Potassium 3.8, Chloride 106, Carbon Dioxide 26.0, Anion Gap 6, BUN 10, Creatinine 0.70, Estim Creat Clear Calc 74.37, Est GFR (MDRD) Af Amer 144, Est GFR (MDRD) Non-Af 119, BUN/Creatinine Ratio 14.3, Glucose 186 H, Calcium 8.9 08/03/22 04:35: APTT 67.6 H D/C Instructions Discharge Diet: No restrictions Meaningful Use Info Meaningful Use Diagnoses (Choose all that apply): VTE VTE Anticoag overlap given w/in hospital stay or rx'd at dc?: Yes Pt receive overlap for 5 days?: No Reason overlap not ordered, prescribed, or given for 5 days: Treatment Not Indicated Discharge Plan Admission Admit Date/Time: 08/01/22 16:55 Primary Reason for Your Visit: Right-sided chest pain Attending Provider: Tracy Fletcher Primary Care Provider: Danny Garcia Consulting Providers: Etienne Cuba Instructions Patient Instructions: DVT/PE Discharge instruction sheet, Embolism Pulmonary Dc Additional Instructions / Restrictions: DISCHARGE INSTRUCTIONS PLEASE READ *Please take this with you to your next doctors appointment* -Please follow-up with Dr. Parks upon discharge. Please call their office to schedule hospital follow-up appointment upon discharge. -You are found to have blood clots in your lungs and you will be discharged on ablood thinner, Eliquis, You will take 10 mg twice daily for 7 days followed by 5mg twice daily thereafter -If you have any bleeding into your Mohr catheter advised that you call Dr. Farrar's office or proceed to the emergency department -Would recommend lab work (CBC) to check your hemoglobin/blood counts in 2 to 3 days through your primary care physician's office. Please call their office upon discharge to obtain order for lab work. -Advised you practice taking deep full breaths as much as possible as this will help recover your lungs faster -Please call your primary care provider's office upon discharge to schedule a hospital follow up within 1 week. -For any concerning signs or symptoms please call 911 or proceed to the nearest emergency department Discharge Orders/Prescriptions Prescriptions: New Eliquis DVT-PE Treat 30D Start 5 mg (74 tabs) tablets,dose pack See Rx Instructions .ROUTE .COMPLEX Qty: 74 0RF Rx Instructions: You will take 10 mg twice daily for 7 days followed by 5 mg twice daily thereafter Continued zinc 50 mg Tablet 15 mg PO DAILY alpha lipoic acid 300 mg Capsule 300 mg PO DAILY cholecalciferol (vitamin D3) [Vitamin D3] 125 mcg (5,000 unit) Tablet 125 mcg PO DAILY vitamin K2 100 mcg Capsule 100 mcg PO DAILY Magnesium Bys Glycinate 1 pkg PO/SL DAILY docusate sodium [Colace] 100 mg capsule 100 mg PO BID Qty: 20 0RF oxycodone-acetaminophen [Endocet] 5-325 mg tablet 1 tab PO Q6H PRN (Reason: pain) 7 Days Qty: 14 0RF omega-3 fatty acids Capsule 1 cap PO DAILY Referrals / Follow Up: Ruben Parks MD [Med Staff - Active Staff] - See Referral Note (Please follow-up with Dr. Parks upon discharge. Please call their office to schedule hospital follow-up appointment upon discharge.) Danny Garcia DO [Primary Care Provider] - Within 1 Week Disposition Disposition (needs filled in before D/C Order can be placed): Home, Self Care Charges/Coding Visit Charges Inpatient E&M: 59511 Disch Hosp >30min 08/03/221953 <Electronically signed by Tracy Fletcher MD> Cosigner Signature (if applicable): CC: Dr. Danny Garcia DO; Dr. Tracy Fletcher MD~ Signed [facility] Work Phone: [phone]) 370-190105-14-[address] Fletcher [facility] August 03, 2022 12:00pm Note Date/Time August 03, 2022 11:44 am [facility] Medical Records Department [address] [place] [address] Instructions for Home/Discharge Instructions 08/03/22 1142 MR#: [id number] Acct: [id number] Name: JERALD NAM Rep #:[id number] : 1950 72 From: Tracy Fletcher MD PCP: Dr. Danny Garcia DO Status:ADM IN Discharge Instructions Diet Discharge Diet: No restrictions Activity Discharge Activity: Return to Normal Activity Follow Up Care Test Results: Test results from this visit will be discussed in further detail at your follow- up appointment, if applicable. Discharge Plan Admission Admit Date/Time: 08/01/22 16:55 Primary Reason for Your Visit: Right-sided chest pain Attending Provider: Tracy Fletcher Primary Care Provider: Danny Garcia Consulting Providers: Etienne Cuba Instructions Patient Instructions: DVT/PE Discharge instruction sheet, Embolism Pulmonary Dc Additional Instructions / Restrictions: DISCHARGE INSTRUCTIONS PLEASE READ *Please take this with you to your next doctors appointment* -Please follow-up with Dr. Parks upon discharge. Please call their office to schedule hospital follow-up appointment upon discharge. -You are found to have blood clots in your lungs and you will be discharged on ablood thinner, Eliquis, You will take 10 mg twice daily for 7 days followed by 5mg twice daily thereafter -If you have any bleeding into your Mohr catheter advised that you call Dr. Farrar's office or proceed to the emergency department -Would recommend lab work (CBC) to check your hemoglobin/blood counts in 2 to 3 days through your primary care physician's office. Please call their office upon discharge to obtain order for lab work. -Advised you practice taking deep full breaths as much as possible as this will help recover your lungs faster -Please call your primary care provider's office upon discharge to schedule a hospital follow up within 1 week. -For any concerning signs or symptoms please call 911 or proceed to the nearest emergency department Discharge Orders/Prescriptions Prescriptions: New Eliquis DVT-PE Treat 30D Start 5 mg (74 tabs) tablets,dose pack See Rx Instructions .ROUTE .COMPLEX Qty: 74 0RF Rx Instructions: You will take 10 mg twice daily for 7 days followed by 5 mg twice daily thereafter Continued zinc 50 mg Tablet 15 mg PO DAILY alpha lipoic acid 300 mg Capsule 300 mg PO DAILY cholecalciferol (vitamin D3) [Vitamin D3] 125 mcg (5,000 unit) Tablet 125 mcg PO DAILY vitamin K2 100 mcg Capsule 100 mcg PO DAILY Magnesium Bys Glycinate 1 pkg PO/SL DAILY docusate sodium [Colace] 100 mg capsule 100 mg PO BID Qty: 20 0RF oxycodone-acetaminophen [Endocet] 5-325 mg tablet 1 tab PO Q6H PRN (Reason: pain) 7 Days Qty: 14 0RF omega-3 fatty acids Capsule 1 cap PO DAILY Referrals / Follow Up: Ruben Parks MD [Med Staff - Active Staff] - See Referral Note (Please follow-up with Dr. Parks upon discharge. Please call their office to schedule hospital follow-up appointment upon discharge.) Danny Garcia DO [Primary Care Provider] - Within 1 Week Disposition Disposition (needs filled in before D/C Order can be placed): Home, Self Care 08/03/22 1200<Electronically signed by Tracy Fletcher MD>Tracy Fletcher MD CC: Dr. Etienne Cuba MD; Dr. Danny Garcia, ~ Signed [facility] Work Phone: [phone]) 630-299705-13-[address] Fletcher [facility] August 02, 2022 3:50pm Note Date/Time August 02, 2022 7:41a m [facility] Medical Records Department [address] [place] [address] Progress Note - Hospitalist 08/02/22 0739 MR#: [id number] Acct: [id number] Name: JERALD NAM Rep #:[id number] : 1950 72 From: Tracy Fletcher MD PCP: Dr. Danny Garcia DO Status:ADM IN Location: [place] [address] Reason for Visit Reason for Visit: Diagnoses Other pulmonary embolism without acute cor pulmonale (08/01/22) Subjective Subjective Still feels quite short of breath, has not been up moving around yet Objective Data Objective Data Vital Signs: Vital Signs Temp Pulse Resp BP Pulse Ox O2 Del Method 97.7 F L 59 L 18 119/65 94 Room Air 08/02/22 04:02 08/02/22 04:02 08/02/22 04:02 08/02/22 04:02 08/02/22 04:02 08/02/22 04:02 Oxygen Delivery Method Room Air Weight: 84.504 kg Body Mass Index (BMI) 25.2 Intake & Output: Intake and Output for Last 24 Hours 07/31/22 08/01/22 08/02/22 23:59 23:59 23:59 Intake Total 366 / 666 562.85 / 562.85 Output Total 2400 / 2400 Balance 366 / -234 -1837.15 / -1837.15 Lab / Micro Data Result Diagrams: 08/02/22 03:19 08/02/22 03:19 Labs: Laboratory Results - last 24 hr 08/01/22 17:55: WBC 9.7, RBC 4.71, Hgb 14.2, Hct 42.6, MCV 90.4, MCH 30.1, MCHC 33.3, RDW Std Deviation 45.6 H, RDW Coeff of Shahla 13.7, Plt Count 195, MPV 11.5, Immature Gran % (Auto) 0.400, Neut % (Auto) 71.7 H, Lymph % (Auto) 17.3 L, [place] % (Auto) 8.0, Eos % (Auto) 2.1, Baso % (Auto) 0.5, Absolute Neuts (auto) 6.9, Absolute Lymphs (auto) 1.68, Nucleated RBC % 0 08/01/22 17:55: PT 15.5 H, INR 1.2, APTT 208.2 H* 08/02/22 03:19: Sodium 138, Potassium 3.8, Chloride 107, Carbon Dioxide 25.0, Anion Gap 6, BUN 12, Creatinine 0.76, Estim Creat Clear Calc 74.37, Est GFR (MDRD) Af Amer 131, Est GFR (MDRD) Non-Af 108, BUN/Creatinine Ratio 15.9, Glucose 181 H, Calcium 8.7, Total Bilirubin 0.80, AST 13 L, ALT 24, Alkaline Phosphatase 67, Total Protein 6.4, Albumin 2.9 L, Globulin 3.5, Albumin/GlobulinRatio 0.8 L 08/02/22 03:19: APTT 69.3 H Physical Exam Narrative General: Alert, oriented, no apparent distress HEENT: Atraumatic, normocephalic Eyes: Anicteric, normal conjunctiva, extraocular movements grossly intact Neck: Supple Respiratory: Somewhat poor air exchange at the bases, normal respiratory effort Cardiovascular: Regular rate and rhythm GI: Soft, nontender, nondistended Extremities: No edema Musculoskeletal: Moving all extremities Neuro: No overt focal neurological deficits Skin: No rashes appreciated Psych: Cooperative Assessment & Plan Assessment/Plan (1) Acute pulmonary embolism: PLAN: Plan JERALD NAM, is a 72 M with a history of prostate cancer who 10 days ago underwent robotic assisted laparoscopic prostatectomy. Presented w/ 2 day s of pleuritic CP and cough, was found to have bilat PE and right middle lobe infarction in [facility] ED on CTA and given high likelihood of hematuria with anticoagulation started with no urology service transfer is requested. 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 Parks -W/ mohr with slightly blood-tinged urine on presentation -08/02: Mohr without gross blood, Charly evaluated and is okay for full dose anticoagulation and recommended against changing the Mohr catheter and that if it needs changed to contact Dr. Parks. If patient doing well tomorrow we will switch to oral and likely DC #DVT ppx: Heparin drip Tracy Fletcher MD Time spent in the patient's overall evaluation,decision-making process, review of diagnostic data, adjustment of management, discussion with other providers, nursing nursing and ancillary staff involved in patient's care documentation, 30minutes Charges/Coding Visit Charges Inpatient E&M: 79265 Subs Hosp L2 08/02/22 1550 <Electronically signed by Tracy Fletcher MD> Cosigner Signature (if applicable): CC: ~ Signed [facility] Work Phone: 1(144) 603-392205-13-[address] Fletcher [facility] August 02, 2022 3:50pm Note Date/Time August 02, 2022 7:41a [facility] Medical Records Department [address] [place] [address] Progress Note - Hospitalist 08/02/22 0739 MR#: [id number] Acct: [id number] Name: JERALD NAM Rep #:[id number] : 1950 72 From: Tracy Fletcher MD PCP: Dr. Danny Garcia, Status:ADM IN Location: [place] [address]- Reason for Visit Reason for Visit: Diagnoses Other pulmonary embolism without acute cor pulmonale (08/01/22) Subjective Subjective Still feels quite short of breath, has not been up moving around yet Objective Data Objective Data Vital Signs: Vital Signs Temp Pulse Resp BP Pulse Ox O2 Del Method 97.7 F L 59 L 18 119/65 94 Room Air 08/02/22 04:02 08/02/22 04:02 08/02/22 04:02 08/02/22 04:02 08/02/22 04:02 08/02/22 04:02 Oxygen Delivery Method Room Air Weight: 84.504 kg Body Mass Index (BMI) 25.2 Intake & Output: Intake and Output for Last 24 Hours 07/31/22 08/01/22 08/02/22 23:59 23:59 23:59 Intake Total 366 / 666 562.85 / 562.85 Output Total 2400 / 2400 Balance 366 / -234 -1837.15 / -1837.15 Lab / Micro Data Result Diagrams: 08/02/22 03:19 08/02/22 03:19 Labs: Laboratory Results - last 24 hr 08/01/22 17:55: WBC 9.7, RBC 4.71, Hgb 14.2, Hct 42.6, MCV 90.4, MCH 30.1, MCHC 33.3, RDW Std Deviation 45.6 H, RDW Coeff of Shahla 13.7, Plt Count 195, MPV 11.5, Immature Gran % (Auto) 0.400, Neut % (Auto) 71.7 H, Lymph % (Auto) 17.3 L, [place] % (Auto) 8.0, Eos % (Auto) 2.1, Baso % (Auto) 0.5, Absolute Neuts (auto) 6.9, Absolute Lymphs (auto) 1.68, Nucleated RBC % 0 08/01/22 17:55: PT 15.5 H, INR 1.2, APTT 208.2 H* 08/02/22 03:19: Sodium 138, Potassium 3.8, Chloride 107, Carbon Dioxide 25.0, Anion Gap 6, BUN 12, Creatinine 0.76, Estim Creat Clear Calc 74.37, Est GFR (MDRD) Af Amer 131, Est GFR (MDRD) Non-Af 108, BUN/Creatinine Ratio 15.9, Glucose 181 H, Calcium 8.7, Total Bilirubin 0.80, AST 13 L, ALT 24, Alkaline Phosphatase 67, Total Protein 6.4, Albumin 2.9 L, Globulin 3.5, Albumin/GlobulinRatio 0.8 L 05/13/23 03:19: APTT 69.3 H Physical Exam Narrative General: Alert, oriented, no apparent distress HEENT: Atraumatic, normocephalic Eyes: Anicteric, normal conjunctiva, extraocular movements grossly intact Neck: Supple Respiratory: Somewhat poor air exchange at the bases, normal respiratory effort Cardiovascular: Regular rate and rhythm GI: Soft, nontender, nondistended Extremities: No edema Musculoskeletal: Moving all extremities Neuro: No overt focal neurological deficits Skin: No rashes appreciated Psych: Cooperative Assessment & Plan Assessment/Plan (1) Acute pulmonary embolism: PLAN: Plan JERALD NAM, is a 72 M with a history of prostate cancer who 10 days ago underwent robotic assisted laparoscopic prostatectomy. Presented w/ 2 day s of pleuritic CP and cough, was found to have bilat PE and right middle lobe infarction in [facility] ED on CTA and given high likelihood of hematuria with anticoagulation started with no urology service transfer is requested. 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 Parks -W/ fani with slightly blood-tinged urine on presentation -08/02: Mohr without gross blood, Charly evaluated and is okay for full dose anticoagulation and recommended against changing the Mohr catheter and that if it needs changed to contact Dr. Parks. If patient doing well tomorrow we will switch to oral and likely DC #DVT ppx: Heparin drip Tracy Fletcher MD Time spent in the patient's overall evaluation,decision-making process, review of diagnostic data, adjustment of management, discussion with other providers, nursing nursing and ancillary staff involved in patient's care documentation, 30minutes Charges/Coding Visit Charges Inpatient E&M: 36333 Subs Hosp L2 08/02/22 1550 <Electronically signed by Tracy Fletcher MD> Cosigner Signature (if applicable): CC: ~ Signed [facility] Work Phone: 1(155) 963-901905-13-[address] Parks [facility] May 13th, 2023 10:27am Note Date/Time August 02, 2022 10:27 am [facility] Medical Records Department [address] [place] [address] Consultation - Urology 08/02/22 1026 MR#: [id number] Acct: [id number] Name: JERALD NAM Rep #:[id number] : 1950 72 From: Ruben Parks MD PCP: Dr. Danny Garcia, DO Status:ADM IN Location: [place] [id number]- HPI Consult Data Date of Consult: 08/02/22 HPI Narrative Reason for Consultation: Pulmonary embolism HPI Narrative: JERALD NAM, is a 72 M who underwent a radical prostatectomy wide dissection for high risk prostate cancer was discharged home on postoperative day #1 doing well and then presented to an outside emergency room with shortness of breath was found to have pulmonary embolism and was transferred here for further care he is on heparin and being anticoagulated which is appropriate his urine is clear and there is no sign of bleeding. Recommend we do not change the Mohr catheter if the catheter needs to be changed or if the concerns regarding catheter please give me a call. We will follow along with you and from my perspective okay to fully anticoagulate the patient call me with questions [facility] Medical History Alcohol use Anemia Bladder disease Cancer Diabetes Leg cramps Non-smoker Prostate disease Restless legs Tinnitus Home Medications Magnesium Bys Glycinate 1 pkg PO/SL DAILY 07/09/22 [History Last Taken 08/01/22] alpha lipoic acid 300 mg capsule 300 mg PO DAILY 07/09/22 [History Last Taken 07/30/22] cholecalciferol (vitamin D3) 125 mcg (5,000 unit) tablet (Vitamin D3) 125 mcg PODAILY 07/09/22 [History Last Taken 08/01/22] vitamin K2 100 mcg capsule 100 mcg PO DAILY 07/09/22 [History Last Taken 07/31/22] zinc 50 mg tablet 15 mg PO DAILY 07/09/22 [History Last Taken 07/30/22] docusate sodium 100 mg capsule (Colace) 100 mg PO BID #20 caps 07/23/22 [Rx Last Taken 08/01/22] oxycodone-acetaminophen 5 mg-325 mg tablet (Endocet) 1 tab PO Q6H PRN pain 7 days #14 tabs 07/23/22 [Rx Last Taken 07/30/22] omega-3 fatty acids 1 cap PO DAILY 08/01/22 [History Last Taken 08/01/22] Allergy/AdvReac Type Severity Reaction Status Date / Time ibuprofen [From Advil] AdvReac SWEATS AND Verified 07/23/22 10:36 HOT FLASH naproxen [From Aleve] AdvReac SWEATS AND Verified 07/23/22 10:36 HOT FLASH Surgical History Hx of colonoscopy Hx of hernia repair Hx of prostate biopsy Hx of tonsillectomy Social History household members: spouse housing: house Smoking Status: Never smoker substance use type: does not use Lab / Micro Data Result Diagrams: 08/01/22 17:55 08/02/22 03:19 Labs: Laboratory Results - last 24 hr 08/01/22 17:55: WBC 9.7, RBC 4.71, Hgb 14.2, Hct 42.6, MCV 90.4, MCH 30.1, MCHC 33.3, RDW Std Deviation 45.6 H, RDW Coeff of Shahla 13.7, Plt Count 195, MPV 11.5, Immature Gran % (Auto) 0.400, Neut % (Auto) 71.7 H, Lymph % (Auto) 17.3 L, [place] % (Auto) 8.0, Eos % (Auto) 2.1, Baso % (Auto) 0.5, Absolute Neuts (auto) 6.9, Absolute Lymphs (auto) 1.68, Nucleated RBC % 0 08/01/22 17:55: PT 15.5 H, INR 1.2, APTT 208.2 H* 08/02/22 03:19: Sodium 138, Potassium 3.8, Chloride 107, Carbon Dioxide 25.0, Anion Gap 6, BUN 12, Creatinine 0.76, Estim Creat Clear Calc 74.37, Est GFR (MDRD) Af Amer 131, Est GFR (MDRD) Non-Af 108, BUN/Creatinine Ratio 15.9, Glucose 181 H, Calcium 8.7, Total Bilirubin 0.80, AST 13 L, ALT 24, Alkaline Phosphatase 67, Total Protein 6.4, Albumin 2.9 L, Globulin 3.5, Albumin/GlobulinRatio 0.8 L 08/02/22 03:19: APTT 69.3 H 08/02/22 1027 <Electronically signed by Ruben Parks MD> Cosigner Signature (if applicable): CC: Dr. Etienne Cuba MD; Dr. Danny Garcia DO~ Signed [facility] Work Phone: 1(763) 581-472505-12-2023 History and physical note Author Dr. Cuba [facility] August 01, 2022 5:35pm Note Date/Time August 01, 2022 5:35p m [facility] Medical Records Department [address] [place] [address] History & Physical Exam 08/01/22 1727 MR#: [id number] Acct: [id number] Name: JERALD NAM Rep #:[id number] : 1950 72 From: Etienne Mcarthur PCP: Dr. Danny Garcia DO Status:ADM IN [facility] - General General Date of Admission: 08/01/22 Date of Service: 08/01/22 Chief Complaint: Right-sided pleuritic chest pain HPI Narrative JERALD NAM, is a 72 M with a history of prostate cancer who 10 days ago underwent robotic assisted laparoscopic prostatectomy. 2 days ago developed right-sided pleuritic chest pain and a cough. Symptoms did not improve with analgesics he had been prescribed following his surgery. Did not report any fever or chills. No nausea or vomiting and has been doing pretty well. Presented to [facility] emergency department with CT angiogram of the chest showed bilateral pulmonary embolism with right middle lobe infarction. Inpatient service reluctant to admit patient given the high likelihood of development of hematuria with anticoagulation. They do not have urology services there and so patient requested to be transferred here. [facility] Medical History Alcohol use Anemia Bladder disease Cancer Diabetes Leg cramps Non-smoker Prostate disease Restless legs Tinnitus Home Medications Magnesium Bys Glycinate 1 pkg PO/SL DAILY 07/09/22 [History Last Taken 08/01/22] alpha lipoic acid 300 mg capsule 300 mg PO DAILY 07/09/22 [History Last Taken 07/30/22] cholecalciferol (vitamin D3) 125 mcg (5,000 unit) tablet (Vitamin D3) 125 mcg PODAILY 07/09/22 [History Last Taken 08/01/22] vitamin K2 100 mcg capsule 100 mcg PO DAILY 07/09/22 [History Last Taken 07/31/22] zinc 50 mg tablet 15 mg PO DAILY 07/09/22 [History Last Taken 07/30/22] docusate sodium 100 mg capsule (Colace) 100 mg PO BID #20 caps 07/23/22 [Rx Last Taken 08/01/22] oxycodone-acetaminophen 5 mg-325 mg tablet (Endocet) 1 tab PO Q6H PRN pain 7 days #14 tabs 07/23/22 [Rx Last Taken 07/30/22] omega-3 fatty acids 1 cap PO DAILY 08/01/22 [History Last Taken 08/01/22] Allergy/AdvReac Type Severity Reaction Status Date / Time ibuprofen [From Advil] AdvReac SWEATS AND Verified 07/23/22 10:36 HOT FLASH naproxen [From Aleve] AdvReac SWEATS AND Verified 07/23/22 10:36 HOT FLASH Surgical History Hx of colonoscopy Hx of hernia repair Hx of prostate biopsy Hx of tonsillectomy Social History household members: spouse housing: house Smoking Status: Never smoker substance use type: does not use ROS ROS Narrative Did not report any nausea vomiting. All other systems reviewed and essentially negative as above in the body of the history. Vital Signs Vital Signs Vital Signs: 08/01/22 16:35 08/01/22 16:35 Temperature 36.9 C Temperature Source Oral Pulse Rate 74 Respiratory Rate 24 H Respiratory Effort Short of Breath Respiratory Depth Normal Respiratory Pattern Tachypnea Blood Pressure 150/82 H Blood Pressure Mean 104 Blood Pressure Source Monitor Blood Pressure Position Semi-Fowlers Blood Pressure Location Left Arm Pulse Ox 96 Oxygen Delivery Method Room Air Room Air Weight Weight: 84.504 kg Body Mass Index (BMI) 25.2 Physical Exam Narrative General exam. Elderly man, in some painful distress, slightly anxious appearingbut not toxic or acutely ill-appearing HEENT. Oral mucosa slightly dry no pallor or jaundice Neck. Neck is supple Lungs. Shallow breathing, chest wall is nontender, no adventitious sounds heardon auscultation. Heart. First and second heart sounds heard no murmurs. Abdomen. Full and soft nontender. Extremities. No pedal edema [employer]. Conscious alert and oriented x3. Cranial nerves II to XII grossly intact. All other systems examined and essentially negative. Results Lab / Micro Data Attestation: I reviewed the patient's lab results. Lab results narrative: Lab results from your primary hospital reviewed. Chemistry is only showing hyperglycemia at 201 mg per DL. Rest of CBC and BMP are normal. Troponin is normal as well. Assessment & Plan Assessment/Plan (1) Acute pulmonary embolism: PLAN: Plan Assessment and plan 1. Acute pulmonary embolism. Bilateral with associated right middle lobe infarction. Most likely cause of his pleuritic pain. Patient has been started on full anticoagulation with heparin drip from the referring hospital we will continue here. Monitor CBC and PTT. Aggressively treat pleuritic chest pain inorder to avoid complications from pneumonia and atelectasis. 2. Prostate cancer status post prostatectomy. Patient still with Mohr catheter. Urine now slightly bloody. We will need to monitor this closely. Should urine become grossly bloody with development of clots may need to consulturology. Charges/Coding Visit Charges Inpatient E&M: 59044 Init Hosp L3 08/01/22 3963 <Electronically signed by Etienne Cuba MD> Cosigner Signature (if applicable): CC: Dr. Etienne Cuba MD; Dr. Danny Garcia DO~ Signed [facility] Work Phone: 1(445) 629-664705-12-2023 History and physical note Author Dr. Cuba [facility] August 01, 2022 5:35pm Note Date/Time August 01, 2022 5:35p m [facility] Medical Records Department [address] [place] [id number] History & Physical Exam 08/01/22 1727 MR#: [id number] Acct: [id number] Name: JERALD NAM Rep #:[id number] : 1950 72 From: Etienne Mcarthur PCP: Dr. Danny Garcia, DO Status:ADM IN Location: [place] [address] HPI - General General Date of Admission: 08/01/22 Date of Service: 08/01/22 Chief Complaint: Right-sided pleuritic chest pain HPI Narrative JERALD NAM, is a 72 M with a history of prostate cancer who 10 days ago underwent robotic assisted laparoscopic prostatectomy. 2 days ago developed right-sided pleuritic chest pain and a cough. Symptoms did not improve with analgesics he had been prescribed following his surgery. Did not report any fever or chills. No nausea or vomiting and has been doing pretty well. Presented to [facility] emergency department with CT angiogram of the chest showed bilateral pulmonary embolism with right middle lobe infarction. Inpatient service reluctant to admit patient given the high likelihood of development of hematuria with anticoagulation. They do not have urology services there and so patient requested to be transferred here. [facility] Medical History Alcohol use Anemia Bladder disease Cancer Diabetes Leg cramps Non-smoker Prostate disease Restless legs Tinnitus Home Medications Magnesium Bys Glycinate 1 pkg PO/SL DAILY 07/09/22 [History Last Taken 08/01/22] alpha lipoic acid 300 mg capsule 300 mg PO DAILY 07/09/22 [History Last Taken 07/30/22] cholecalciferol (vitamin D3) 125 mcg (5,000 unit) tablet (Vitamin D3) 125 mcg PODAILY 07/09/22 [History Last Taken 08/01/22] vitamin K2 100 mcg capsule 100 mcg PO DAILY 07/09/22 [History Last Taken 07/31/22] zinc 50 mg tablet 15 mg PO DAILY 07/09/22 [History Last Taken 07/30/22] docusate sodium 100 mg capsule (Colace) 100 mg PO BID #20 caps 07/23/22 [Rx Last Taken 08/01/22] oxycodone-acetaminophen 5 mg-325 mg tablet (Endocet) 1 tab PO Q6H PRN pain 7 days #14 tabs 07/23/22 [Rx Last Taken 07/30/22] omega-3 fatty acids 1 cap PO DAILY 08/01/22 [History Last Taken 08/01/22] Allergy/AdvReac Type Severity Reaction Status Date / Time ibuprofen [From Advil] AdvReac SWEATS AND Verified 07/23/22 10:36 HOT FLASH naproxen [From Aleve] AdvReac SWEATS AND Verified 07/23/22 10:36 HOT FLASH Surgical History Hx of colonoscopy Hx of hernia repair Hx of prostate biopsy Hx of tonsillectomy Social History household members: spouse housing: house Smoking Status: Never smoker substance use type: does not use ROS ROS Narrative Did not report any nausea vomiting. All other systems reviewed and essentially negative as above in the body of the history. Vital Signs Vital Signs Vital Signs: 08/01/22 16:35 08/01/22 16:35 Temperature 36.9 C Temperature Source Oral Pulse Rate 74 Respiratory Rate 24 H Respiratory Effort Short of Breath Respiratory Depth Normal Respiratory Pattern Tachypnea Blood Pressure 150/82 H Blood Pressure Mean 104 Blood Pressure Source Monitor Blood Pressure Position Semi-Fowlers Blood Pressure Location Left Arm Pulse Ox 96 Oxygen Delivery Method Room Air Room Air Weight Weight: 84.504 kg Body Mass Index (BMI) 25.2 Physical Exam Narrative General exam. Elderly man, in some painful distress, slightly anxious appearingbut not toxic or acutely ill-appearing HEENT. Oral mucosa slightly dry no pallor or jaundice Neck. Neck is supple Lungs. Shallow breathing, chest wall is nontender, no adventitious sounds heardon auscultation. Heart. First and second heart sounds heard no murmurs. Abdomen. Full and soft nontender. Extremities. No pedal edema [employer]. Conscious alert and oriented x3. Cranial nerves II to XII grossly intact. All other systems examined and essentially negative. Results Lab / Micro Data Attestation: I reviewed the patient's lab results. Lab results narrative: Lab results from your primary hospital reviewed. Chemistry is only showing hyperglycemia at 201 mg per DL. Rest of CBC and BMP are normal. Troponin is normal as well. Assessment & Plan Assessment/Plan (1) Acute pulmonary embolism: PLAN: Plan Assessment and plan 1. Acute pulmonary embolism. Bilateral with associated right middle lobe infarction. Most likely cause of his pleuritic pain. Patient has been started on full anticoagulation with heparin drip from the referring hospital we will continue here. Monitor CBC and PTT. Aggressively treat pleuritic chest pain inorder to avoid complications from pneumonia and atelectasis. 2. Prostate cancer status post prostatectomy. Patient still with Mohr catheter. Urine now slightly bloody. We will need to monitor this closely. Should urine become grossly bloody with development of clots may need to consulturology. Charges/Coding Visit Charges Inpatient E&M: 68786 Init Hosp L3 08/01/22 1735 <Electronically signed by Etienne Cuba MD> Cosigner Signature (if applicable): CC: Dr. Etienne Cuba MD; Dr. Danny Garcia, DO~ Signed [facility] Work Phone: 1(204) 211-473005-04-[address] Parks [facility] July 24, 2022 7:46am Note Date/Time July 24, 2022 7:46am [facility] Medical Records Department [address] [place] [address] Progress Note 07/24/22745 MR#: [id number] Acct: [id number] Name: JERALD NAM Rep #:[id number] : 1950 72 From: Ruben Parks MD PCP: Dr. Danny Garcia, DO Status:ADM [place] Location: [place] [id number] Progress Note doing well home today with mohr to gravity. 07/24/22 0746 <Electronically signed by Ruben Parks MD> Ruben Parks MD Cosigner Signature (if applicable): CC: ~ Signed [facility] Work Phone: [phone]) 329-916805-03-[address] Parks [facility] July 23, 2022 4:04pm Note Date/Time July 23, 2022 4:04pm [facility] Medical Records Department [address] [facility] [place] [address] Instructions for Home/Discharge Instructions 07/23/22 1604 MR#: [id number] Acct: [id number] Name: JERALD NAM Rep #:[id number] : 1950 72 From: Ruben Pakrs MD PCP: Dr. Danny Garcia DO Status:REG [facility] Discharge Instructions Diet Discharge Diet: No restrictions, Light diet - advance as tolerated and Soft diet Activity Discharge Activity: May Not Drive Return to work on:: 08/27/22 May shower in (days): 1 Dressing / Incision Call your doctor if your incision/area has: Continuous Slow Oozing, Sudden Increased Bleeding and Foul Smelling Discharge Cleanse incision/area with: Soap & Water Catheter: Mohr to leg bag and Mohr to large bag Drain: [place] Follow Up Care Please Follow Up With: Ruben Parks MD When: call for appt 2 weeks to remove mohr Test Results: Test results from this visit will be discussed in further detail at your follow- up appointment, if applicable. Discharge Plan Admission Primary Reason for Your Visit: Radical Prostatectomy Attending Provider: Ruben Parks Primary Care Provider: Danny Garcia Consulting Providers: Janes Deutsch Instructions Patient Instructions: Radical Prostatectomy Dc Discharge Orders/Prescriptions Prescriptions: New ciprofloxacin HCl [Cipro] 500 mg tablet 500 mg PO BID Qty: 14 0RF docusate sodium [Colace] 100 mg capsule 100 mg PO BID Qty: 20 0RF oxycodone-acetaminophen [Endocet] 5-325 mg tablet 1 tab PO Q6H PRN (Reason: pain) 7 Days Qty: 14 0RF Continued zinc 50 mg Tablet 15 mg PO DAILY alpha lipoic acid 300 mg Capsule 300 mg PO DAILY cholecalciferol (vitamin D3) [Vitamin D3] 125 mcg (5,000 unit) Tablet 125 mcg PO DAILY vitamin K2 100 mcg Capsule 100 mcg PO DAILY Magnesium Bys Glycinate 1 pkg PO/SL DAILY Other Ambulatory Orders: 12 Lead EKG (Routine) Timeframe: [id number] Location: None Selected Ordered By: Dr. Janes Deutsch Referrals / Follow Up: Ruben Parks MD [Med Staff - Active Staff] - Danny Garcia DO [Primary Care Provider] - Disposition Disposition (needs filled in before D/C Order can be placed): Home, Self Care 07/23/22 1604<Electronically signed by Ruben Parks MD>Ruben Parks MD CC: Dr. Janes Deutsch MD; Dr. Danny Garcia, DO ~ Signed [facility] Work Phone: [phone] History and physical note Author Dr. Parks [facility] July 23, 2022 4:04pm Note Date/Time July 23, 2022 4:04pm [facility] Medical Records Department [address] [place] [address] History & Physical Exam 07/23/22 1603 MR#: [id number] Acct: [id number] Name: JERALD NAM Rep #:[id number] : 1950 72 From: Ruben Parks MD PCP: Dr. Danny Garcia, Status:[facility] Location: [place] [address] HPI - General HPI Narrative JERALD NAM, is a 72 M who presents for radical prostatectomy he has high risk prostate cancer organ to proceed with a bilateral lymph node dissection radical prostatectomy and also removal bladder stones large. [facility] Medical History (Updated 07/23/22 @ 11:[address] Ruben Parks MD) Alcohol use Anemia Bladder disease Cancer Leg cramps Non-smoker Prostate disease Restless legs Tinnitus Home Medications Magnesium Bys Glycinate 1 pkg PO/SL DAILY 07/09/22 [History Last Taken Unknown] alpha lipoic acid 300 mg capsule 300 mg PO DAILY 07/09/22 [History Last Taken Unknown] cholecalciferol (vitamin D3) 125 mcg (5,000 unit) tablet (Vitamin D3) 125 mcg PODAILY 07/09/22 [History Last Taken Unknown] vitamin K2 100 mcg capsule 100 mcg PO DAILY 07/09/22 [History Last Taken Unknown] zinc 50 mg tablet 15 mg PO DAILY 07/09/22 [History Last Taken Unknown] ciprofloxacin HCl 500 mg tablet (Cipro) 500 mg PO BID #14 tabs 07/23/22 [Rx Last Taken Unknown] docusate sodium 100 mg capsule (Colace) 100 mg PO BID #20 caps 07/23/22 [Rx Last Taken Unknown] oxycodone-acetaminophen 5 mg-325 mg tablet (Endocet) 1 tab PO Q6H PRN pain 7 days #14 tabs 07/23/22 [Rx Last Taken Unknown] Allergy/AdvReac Type Severity Reaction Status Date / Time ibuprofen [From Advil] AdvReac SWEATS AND Verified 07/23/22 10:36 HOT FLASH naproxen [From Aleve] AdvReac SWEATS AND Verified 07/23/22 10:36 HOT FLASH Surgical History (Updated 07/09/22 @ 10:11 by Madeleine Dumas) Hx of colonoscopy Hx of hernia repair Hx of prostate biopsy Hx of tonsillectomy Social History Smoking Status: Never smoker Vital Signs Vital Signs Vital Signs: 07/23/22 10:36 07/23/22 10:36 Temperature 97.7 F L Temperature Source Temporal Pulse Rate 70 Respiratory Rate 16 Respiratory Pattern Normal Blood Pressure 149/79 H Blood Pressure Mean 102 Blood Pressure Source Monitor Blood Pressure Position Sitting Blood Pressure Location Left Arm Pulse Ox 99 Oxygen Delivery Method Room Air Weight Weight: 82 kg Body Mass Index (BMI) 24.5 Results Lab / Micro Data Result Diagrams: 07/17/22 12:45 07/23/22 1604 <Electronically signed by Ruben Parks MD> Cosigner Signature (if applicable): CC: Dr. Ruben Parks MD; Dr. 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 Malignant neoplasm of prostate acute 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 [facility] Work Phone: Reason for referral (narrative)No reason for referral information availableAultman [facility] Work Phone: Chief Complaint and Reason for Visit Chief Complaint PSA Chief Complaint PSA ELEVATED PSA Chief Complaint PSA ELEVATED PSA PROSTATE CA PROSTATE CA Chief Complaint PSA ELEVATED PSA PROSTATE CA PROSTATE CA PREOP LAP ROBOTIC RADICAL PROSTATECTOMY Chief Complaint PSA ELEVATED PSA PROSTATE CA PROSTATE CA PREOP LAP ROBOTIC RADICAL PROSTATECTOMY POST OP PE POST OP PE POST OP PE Reason for Visit Acute pulmonary embo lism Chief Complaint PSA ELEVATED PSA PROSTATE CA PROSTATE CA PREOP LAP ROBOTIC RADICAL PROSTATECTOMY POST OP PE POST OP PE POST OP PE POST OP PE Reason for Visit Acute pulmonary embo lism Chief Complaint LAP ROBOTIC RADICAL PROSTATECTOMY POST OP PE POST OP PE POST OP PE POST OP PE Reason for Visit Acute pulmonary embo lism Chief Complaint CONSULT - PROSTATE Rising PSA following treatment for malignant neopl . REVIEW SCANS FROM 12/02 Reason for Visit Biochemically recurr ent malignant neoplasm of prostate Malignant neoplasm of prostate Biochemically recurrent malignant neoplasm of prostate Advance Directives No Advanced Directives Records Found Advance Directive Response Recorded Date/ Time Living Will No July 23, 2022 5: 48pm Power of Automatic Clipper No July 23, 2022 5:48pm Advance Directive Response Recorded Date/ Time Living Will No August 01, 2022 5 :15pm Power of Automatic Clipper No August 01, 2022 5:15pm Advance Directive Response Recorded Date/ Time Living Will No August 01, 2022 4 :15pm Power of Automatic Clipper No August 01, 2022 4:15pm Summary Purpose Family History No Family History Records Found Relationship Condition Age at Onset Recorded Date/T jeremias grandmother Diabetes mellitus Unknown mother Diabetes mellitus Unknown Hypertension Unknown father Myocardial infarction Unknown Additional Source Comments Care Teams (unrecognized sec tion and content) Team Status: Active Member Role Status Dates Dr. Danny Garcia DO Family Provider Active Dr. Danny Garcia DO Primary Care Provider Active Team Status: Inactive Member Role Status Dates Dr. Danny Garcia DO Primary Care Provider, Attendin g Provider Active Team Status: Inactive Member Role Status Dates Dr. Danny Garcia DO Primary Care Provider Active Dr. Ruben Parks MD Attending Provider Active Team Status: Inactive Member Role Status Dates Dr. Danny Garcia DO Primary Care Provider Active Dr. Ruben Parks MD Attending Provider, Referr ing Provider Active Team Status: Active Member Role Status Dates Dr. Danny Garcia DO Primary Care Provider Active Dr. Ruben Parks MD Attending Provider, Referr ing Provider Active Team Status: Active Member Role Status Dates Dr. Danny Garcia , DO Primary Care Provider Active Dr. Jono Bazzi MD Attending Provider Active Dr. Ruben Parks MD Referring Provider Active Team Status: Inactive Member Role Status Dates Dr. Danny Garcia , DO Primary Care Provider Active Dr. Ruben Parks MD Admit Provid er, Attending Provider, Referring Provider Active Dr. Janes Deutsch MD Other Provider Active Team Status: Active Member Role Status Dates Dr. Danny Garcia DO Primary Care Provider Active Dr. Etienne Cuba MD Admit Provider, A ttending Provider, Referring Provider, Other Provider Active Team Status: Active Member Role Status Dates Dr. Danny Garcia DO Primary Care Provider Active Dr. Etienne Cuba MD Admit Provider, R eferring Provider, Other Provider Active Dr. Tracy Fletcher MD Attending Provider, Other Provid er Active Team Status: Inactive Member Role Status Dates Dr. Danny Garcia DO Primary Care Provider Active Dr. Etienne Cuba MD Admit Provider, R eferring Provider, Other Provider Active Dr. Tracy Fletcher MD Attending Provider Active Team Status: Active Member Role Status Dates Dr. Danny Garcia DO Primary Care Provider Active Dr. Etienne Cuba MD Admit Provider, A ttending Provider, Other Provider Active Team Status: Active Member Role Status Dates Dr. Danny Garcia DO Primary Care Provider Active Dr. Etienne Cuba MD Admit Provider, Other Provider Active Dr. Tracy Fletcher MD Attending Provider, Other Provid er Active Team Status: Inactive Member Role Status Dates Dr. Danny Garcia , DO Primary Care Prov ider, Attending Provider, Referring Provider Active Team Status: Inactive Member Role Status Dates Dr. Danny Garcia DO Primary Care Provider Active Dr. Leroy Hinds , DO Attending Provider Active Dr. Ruben Parks MD Referring Provider Active Team Status: Inactive Member Role Status Dates Dr. Danny Garcia , DO Primary Care Provider, Referrin g Provider Active Dr. Leroy Hinds , DO Attending Provider Active Team Status: Active Member Role Status Dates Dr. Danny Garcia , DO Primary Care Provider Active Dr. Leroy Hinds , DO Attending Provider, Referring P ronayder Active Team Status: Inactive Member Role Status Dates Dr. Danny Garcia DO Primary Care Provider Active Dr. Leroy Hinds DO Attending Provider, Referring P ronayder Active Team Status: Inactive Member Role Status Dates Dr. Danny Garcia DO Primary Care Provider Active Gloria Stewart Attending Provider, Referring Provide r Active Team Status: Inactive Member Role Status Dates Dr. Danny Garcia DO Primary Care Provider Active Start: March 08, 2024 End: March 08, 2024 Dr. Ruben Parks MD Attending Provider Active Start: March 08, 2024 End: March 08, 2024 Dr. Ruben Parks MD Referring Provider Active Start: March 08, 2024 End: March 08, 2024 Team Status: Inactive Member Role Status Dates Dr. Danny Garcia DO Primary Care Provider Active Start: June 15, 2024 End: June 15, 2024 Dr. Danny Garcia DO Attending Provider Active Start: June 15, 2024 End: June 15, 2024 Goals (unrecognized section and content) Goals may be documented in a n alternate sectionGoals may be documented in an alternate sectionGoals may be documented in an alternate sectionGoals may be documented in an alternate sectionGoals may be documented in an alternate sectionGoals may be documented in an alternate sectionGoals may be documented in an alternate sectionGoals may be documented in an alternate sectionGoals may be documented in an alternate sectionGoals may be documented in an alternate section (unrecognized sect ion and content) No Status Records FoundNo Status Records Found INFORMATION SOURCE (unrecogn ized section and content) DATE CREATED AUTHOR 08/02/2022 [facility] DATE CREATED AUTHOR AUTHOR'S BARBARA GREY 06/21/2024 [facility] FOR RECORDS PERTAINING TO PATIENTS WHO ARE [...] BE BASED ON THE PRIMARY CLINICAL RECORDS. [employer] [facility]. provides no warranty or guarantee of the accuracy or completeness of information in this document.
[2024-09-10] MEDS: 0.9% Normal Saline (1000mL) 1,000 ML 1000 ML IV (21:24)
[2024-09-10] MEDS: Ketorolac 30 MG/ML Syringe 15 MG IV (21:25)
[2024-09-10] MEDS: Acetaminophen 500 MG Tablet 1000 MG PO (21:25)
--- NOTE | 2024-09-10 21:25 | RAD_ITS ---
PROCEDURE: CHEST 1 VIEW (PORTABLE) 09/10/2024 REASON FOR EXAM: COUGH AND FEVER TECHNIQUE: Frontal view of the chest. COMPARISON: None. FINDINGS: Hardware: None. Heart: The heart size is normal. Lungs: Low lung volumes. Bibasilar atelectasis. No focal consolidation, pleural effusion or pneumothorax. Bones: Degenerative changes are identified within the thoracic spine. RAD/Chest 1 View (Portable) IMPRESSION: No Acute Findings. Reading Location: [id number]
[2024-09-10 21:26] LABS: Absolute Lymphocyte Count 1.23 X10^3/uL (0.83-4.51); Absolute Neutrophil Count 4.7 X10^3/uL (2.0-7.7); Basophil# 0.04 X10^3/uL; Basophil% 0.6 % (0-1); Eosinophil# 0.07 X10^3/uL; Hematocrit 41.9 % (40-54); Hemoglobin 13.9 g/dL (13.0-16.5); Lymphocyte # 1.23 X10^3/ul (0.83-4.51); Lymphocyte % 18.3 % (19-41); Mean Corp Hgb Conc 33.2 g/dL (32-36); Mean Corpuscular Hgb 29.3 pg (27.0-32.0); Mean Corpuscular Volume 88.2 fL (80-94); Mean Platelet Vol. 11.2 fl (6.2-12.0); Monocyte% 10.4 % (0-10); NRBC Flagged by Analyzer 0 % (0-5); Neutrophil # 4.65 X10^3/uL (2.7-7.7); Neutrophil % 69.4 % (47-70); Platelet Count 183 K/mm3 (150-450); RBC Distribution Width CV 13.8 % (11.6-14.6); RBC Distribution Width SD 44.5 fl (35.1-43.9); Red Blood Count 4.75 M/mm3 (4.6-6.2); White Blood Count 6.7 K/mm3 (4.4-11.0)
[2024-09-10 21:27] LABS: Color, Urine Yellow (Yellow); Glucose, Dipstick 250 mg/dl (Normal); Ketone-Dipstick 50 mg/dl (Negative); Leukocyte Esterase-Dipstick Negative /ul (Negative); Nitrite-Dipstick Negative (Negative); Occult Blood-Urine 25 /ul (Negative); Protein-Dipstick 30 mg/dl (Negative); Specific Gravity, Urine 1.025 (1.002-1.030); Urine Bilirubin Dipstick Negative (Negative); Urine Clarity Sl. Cloudy (Clear); Urine Urobilinogen Normal (Normal)
[2024-09-10 21:35] LABS: Prothrombin Time (Protime)PT. 13.9 SECONDS (11.7-14.9)
[2024-09-10 21:36] LABS: Calcium Oxalate Crystals Ur 1+ /hpf (<or=2+); Partial Thromboplast Time 28.8 Seconds (24.1-36.2)
[2024-09-10 21:40] LABS: Red Blood Cells-Urine 0-5 SEEN /hpf (0-5)
[2024-09-10 21:41] LABS: Amorphous Sediment 1+
[2024-09-10 21:42] VITALS: BP 143/84; PULSE 80; RESP 18; O2SAT 96
[2024-09-10 21:55] LABS: AST(SGOT) 36 U/L (<=37); Alanine Aminotransfer ALT/SGPT 41 U/L (<=46); Albumin, Serum 3.8 g/dL (3.4-4.8); Alkaline Phosphatase 72 U/L (40-129); Anion Gap 14 (5-15); BUN 15 mg/dL (4-19); BUN/Creat Ratio 16.8 RATIO (10-20); Calcium,Total 8.9 mg/dL (7.6-11.0); Carbon Dioxide 20.3 mmol/L (21.0-32.0); Chloride 100 mmol/L (98-108); Creatinine, Serum 0.88 mg/dL (0.70-1.20); EST Glomerular Filtration Rate 91 (>60); Estimated Creatinine Clearance 82.06 ml/min (50-250); Glucose 227 mg/dL (70-99); Lipase 103 U/L (13-75); Potassium 3.7 mmol/L (3.3-5.1); Protein, Total 6.8 g/dL (5.9-8.4); Sodium Level 134 mmol/L (133-145); Total Bilirubin 0.49 mg/dL (0.00-1.30)
[2024-09-10 22:00] VITALS: BP 132/80; PULSE 76; RESP 18; TEMP 37.2; O2SAT 96
[2024-09-10 22:26] LABS: Troponin T High Sensitivity 19 ng/L (<=22)
--- NOTE | 2024-09-10 22:35 | EDS_ITS ---
HPI History of Present Illness Chief Complaint: Fever Informant: patient and spouse/S.O. Narrative Narrative: This is a very pleasant 74-year-old gentleman who is presenting with low-grade fevers and rash on his arm and myalgias/arthralgias. Patient states that he was out camping in [facility] and recently returned home. Over the past several days he has had myalgias and arthralgias particularly in the neck and shoulders. Tonight he noticed a red swollen area on his left deltoid region. He notes a occipital headache but no diffuse headache. No other rashes. No diarrhea. No sore throat. Minimal cough. No shortness of breath. He denies vomiting. He does not recall any tick bites recently. He did have a tick bite 6 months ago. He states somebody he was with got bit by a spider. He denies any light sensitivity phonophobia. He has not taken any antipyretics. [facility] Medical History Hematuria Urinary calculi Dysuria Elevated PSA Pulmonary embolism Diabetes Tinnitus Cancer Alcohol use Prostate disease Bladder disease Anemia Restless legs Non-smoker Leg cramps Home Medications ?Medication ?Instructions ?Recorded ?Last Taken ?Type Magnesium Bys Glycinate 1 pkg PO/SL DAILY 07/09/22 0 08/01/22 History cholecalciferol (vitamin D3) 125 125 mcg PO DAILY 06/2108/01/22 History mcg (5,000 unit) tablet (Vitamin D3) vitamin K2 100 mcg capsule 100 mcg PO DAILY 07/09/22 0 07/31/22 History omega-3 fatty acids 1 cap PO DAILY 08/01/2207/21 History doxycycline monohydrate 100 mg 100 mg PO BID #14 CAPSU LES 09/10/24 Unknown Rx capsule Allergy/AdvReac Type Severity Reaction Status Date / Time ibuprofen (From Advil) AdvReac SWEATS AND Verified 09/10/24 19:42 HOT FLASH naproxen (From Aleve) AdvReac SWEATS AND Verified 09/10/24 19:42 HOT FLASH Family History Grandmother Diabetes Mother Diabetes Hypertension Father Myocardial infarction Surgical History Hx of colonoscopy Hx of prostate biopsy Hx of tonsillectomy Hx of hernia repair Social History household members: spouse housing: house Smoking Status: Never smoker alcohol intake: current alcohol intake frequency: holidays/special occasions only substance use type: does not use ROS ROS ED Constitutional Constitutional ED: Reports fever(s); Denies chills, sweats or weight loss Eyes Eyes: Denies blurry vision, change in vision or diplopia ENT ENT ED: Denies ear pain, rhinorrhea or sore throat Cardiovascular Cardiovascular: Denies chest pain, orthopnea, palpitations or racing heartbeat Respiratory/Chest Respiratory/Chest: Reports cough; Denies dyspnea, dyspnea on exertion, orthopnea or sputum Gastrointestinal Gastrointestinal: Denies abdominal pain, diarrhea, nausea or vomiting Genitourinary Genitourinary ED: Denies dysuria, hematuria or urinary frequency Musculoskeletal Musculoskeletal: Reports arthralgias, myalgias and neck pain; Denies back pain Integumentary Reports rash; Denies abscess or Abrasions Neurologic Neurologic: Reports headache(s); Denies paresthesias or weakness Psychiatric Psychiatric: Denies anxiety, depression, suicidal ideation or suicidal thoughts Endocrine Endocrinology: Denies polydipsia, polyphagia or polyuria Allergic/Immunologic Allergic/Immunologic ED: Denies mouth swelling, tongue swelling or urticaria EXAM Physical Exam Const Vital Signs: 09/10/24 19:43 09/10/24 20:44 09/10/24 21:00 Temperature 99.6 F H 99.4 F H 99.0 F Temperature Source Oral Oral Oral Pulse Rate 103 H 92 84 Respiratory Rate 18 16 16 Blood Pressure 140/85 H 143/84 H 143/84 H Blood Pressure Mean 103 103 103 Pulse Ox 97 95 96 Oxygen Delivery Method Room Air Room Air Room Air 09/10/24 21:42 09/10/24 22:00 09/10/24 22:51 Temperature 99.0 F 99.0 F Temperature Source Oral Pulse Rate 80 76 76 Respiratory Rate 18 18 18 Blood Pressure 143/84 H 132/80 H 132/80 H Blood Pressure Mean 103 97 97 Pulse Ox 96 96 96 Oxygen Delivery Method Room Air Room Air Positive well nourished and well developed General Appearance ED: well developed and NAD HEENT Reports normocephalic, head/scalp atraumatic and moist mucous membranes HEENT Narrative: No photophobia. Eyes PERRL and EOMs intact bilaterally Neck no lymphadenopathy, supple and no JVD Neck Narrative: Patient has generalized tenderness in the neck. I do not appreciate significant lymphadenopathy. He has soreness with movement of his neck but would not characterize it is meningitic. General: tenderness Chest Wall inspection of chest normal and palpation of chest normal Resp normal respiratory effort and clear to auscultation bilaterally Cardio regular rate, regular rhythm and no murmurs Rate: tachycardic GI normal to inspection, nondistended, normoactive bowel sounds and non-tender Palpation: soft Back/Spine no CVA tenderness and normal ROM Extremity Extremity Narrative: Right shoulder demonstrates a 8 cm round area of erythema that blanches with some mild edema. I do not appreciate any insect (tick). There is no lymphangitic streaking. No abscess. There is no fluctuance. General Extremety ED: Negative for edema General Extremity: Negative for edema Neuro oriented x3 and CN's II-XII intact bilaterally Sensorium / Orientation: alert Motor Exam: strength 5/5 throughout Psych mental status grossly normal Mood & Affect: Negative for depressed or tearful Skin no wounds MDM MDM MDM Narrative Medical decision making narrative: Differential diagnosis includes but not limited to viral syndrome pneumonia Lyme's disease insect bite meningitis encephalitis myocarditis My independent interpretation of the chest x-ray is no acute process. EKG is a normal sinus rhythm at a rate of 91 bpm. White count of 6.7 with 69.4 neutrophils 18.3 lymphocytes 10.4 monocytes. Platelet count is normal at 183. Normal coags. Normal lactic acid. Urinalysis with no obvious infection. Troponin 19. Blood cultures were obtained. Lyme disease screen was sent. Patient received a dose of Tylenol Toradol and IV fluids. He is resting comfortably. Heart rate is down. Blood pressure has been stable. Clinically he appears well. I will start him on doxycycline and have asked that he follow- up with his primary care doctor this week for check of his Lyme screen and repeat examination. Patient and his are comfortable with this plan will return if worsening or concerns History & Record Review Discussion w/independent historian: Patient and Significant other Additional record(s) reviewed:: Prior inpatient record, Prior outpatient record and Prior labs Lab Data Attestation: I reviewed the patient's lab results. Labs: Laboratory Results - last 24 hr 09/10/24 21:04 WBC 6.7 RBC 4.75 Hgb 13.9 Hct 41.9 MCV 88.2 MCH 29.3 MCHC 33.2 RDW Std Deviation 44.5 H RDW Coeff of Shahla 13.8 Plt Count 183 MPV 11.2 Immature Gran % (Auto) 0.300 Neut % (Auto) 69.4 Lymph % (Auto) 18.3 L [place] % (Auto) 10.4 H Eos % (Auto) 1.0 Baso % (Auto) 0.6 Absolute Neuts (auto) 4.7 Absolute Lymphs (auto) 1.23 Nucleated RBC % 0 PT 13.9 INR 1.0 APTT 28.8 Sodium 134 Potassium 3.7 Chloride 100 Carbon Dioxide 20.3 L Anion Gap 14 BUN 15 Creatinine 0.88 Estim Creat Clear Calc 82.06 Est GFR (MDRD) Non-Af 91 BUN/Creatinine Ratio 16.8 Glucose 227 H Lactic Acid 2.0 Calcium 8.9 Total Bilirubin 0.49 Direct Bilirubin 0.20 AST 36 ALT 41 Alkaline Phosphatase 72 Troponin T High Sens 19 Total Protein 6.8 Albumin 3.8 Globulin 3.0 Lipase 103 H Urine Color Yellow Urine Clarity Sl. Cloudy Urine pH 5.0 Ur Specific [place] 1.025 Urine Protein 30 H Urine Glucose (UA) 250 H Urine Ketones 50 H Urine Occult Blood 25 H Urine Nitrite Negative Urine Bilirubin Negative Urine Urobilinogen Normal Ur Leukocyte Esterase Negative Urine RBC 0-5 SEEN Urine WBC 0 SEEN Ur Squamous Epith Cells 0 SEEN Calcium Oxalate Crystal 1+ Amorphous Sediment 1+ Urine Bacteria 0 SEEN Urine Mucus 0 SEEN Radiography Diagnostic Testing: Clinical Impression(s) from Imaging Studies Chest X-Ray 09/10/24 21:25 IMPRESSION: No Acute Findings. Reading Location: [facility] EKG Initial EKG: Attestation: I personally reviewed and interpreted this EKG as follows: Comments: Normal sinus rhythm ventricular rate of 91 bpm Discharge Plan Triage Chief Complaint: Fever Other Complaint: Wound Check ED Provider: Jose Mitchell Dx/Rx/DC Orders Clinical Impression: Insect bite, Myalgia, Arthralgia Instructions: ED FUO Adult, ED Lyme Disease Prescriptions: New doxycycline monohydrate 100 mg capsule 100 mg PO BID Qty: 14 0RF No Action cholecalciferol (vitamin D3) [Vitamin D3] 125 mcg (5,000 unit) Tablet 125 mcg PO DAILY vitamin K2 100 mcg Capsule 100 mcg PO DAILY Magnesium Bys Glycinate 1 pkg PO/SL DAILY omega-3 fatty acids Capsule 1 cap PO DAILY Primary Care Provider: Asael Garcia Referrals: Asael Garcia DO [Primary Care Provider] - 3-5 Days Print Language: Romanian Disposition Disposition: Home, Self Care Discharge Date/Time: 09/10/24 22:53
[2024-09-10 22:51] VITALS: BP 132/80; PULSE 76; RESP 18; TEMP 37.2; O2SAT 96
[2024-09-11 01:20] LABS: Reflex Lactate? Y
[2024-09-13 14:09] LABS: Lyme Scn Total Ab w/Rflx Negative (Negative)
== END 2024-09-10 22:53 | disposition home or self-care (01) ==
PROVIDERS: Emergency Provider Emergency Medicine; PCP Family Medicine; Visit Provider Emergency Medicine
DX: S40.261A Insect bite (nonvenomous) of right shoulder, initial encounter (principal); E11.9 Type 2 diabetes mellitus without complications; R50.9 Fever, unspecified; M79.10 Myalgia, unspecified site; M25.511 Pain in right shoulder; M25.512 Pain in left shoulder; R21 Rash and other nonspecific skin eruption; R51.9 Headache, unspecified; W57.XXXA Bitten or stung by nonvenomous insect and other nonvenomous arthropods, initial encounter; R05.9 Cough, unspecified; Z86.711 Personal history of pulmonary embolism; R06.02 Shortness of breath; R94.31 Abnormal electrocardiogram [ECG] [EKG]
CPT/HCPCS: 71045; 80048; 80076; 81001; 83605; 83690; 84484; 85025; 85610; 85730; 86618; 87040; 87631; 93005; 96361; 96374; 99284; A4216

== ENCOUNTER → 2024-09-20 | Outpatient (CLI) | payer MEDICARE, SELFPAY | END | disposition home or self-care (01) | PROVIDERS: PCP Family Medicine; Visit Provider Family Medicine | DX: A69.20 Lyme disease, unspecified (principal) | CPT/HCPCS: 36415; 86617 ==

== ENCOUNTER → 2024-12-12 | Outpatient (CLI) | payer MEDICARE, SELFPAY ==
[2024-12-12 11:58] LABS: PSA,Total- Diagnostic 0.72 ng/mL (0.00-4.00)
== END | disposition home or self-care (01) ==
LOC: LAB 09:58
PROVIDERS: PCP Family Medicine; Referring Provider Urology; Visit Provider Urology
DX: C61 Malignant neoplasm of prostate (principal)
CPT/HCPCS: 36415; 84153

== ENCOUNTER → 2025-03-20 | Outpatient (CLI) | payer MEDICARE, SELFPAY ==
[2025-03-20 13:12] LABS: PSA,Total- Diagnostic < 0.02 ng/mL (0.00-4.00)
== END | disposition home or self-care (01) ==
LOC: LAB 11:49
PROVIDERS: PCP Family Medicine; Referring Provider Urology; Visit Provider Urology
DX: C61 Malignant neoplasm of prostate (principal)
CPT/HCPCS: 36415; 84153